=== PATIENT | female | born 1955 | race Caucasian/White ===

== ENCOUNTER → 2018-10-19 11:43 | Outpatient (CLI) | payer OTHER, SELFPAY ==
[2018-10-19 11:09] VITALS: BMI 27.2
[2018-10-19 13:12] LABS: AST(SGOT) 18 U/L (15-37); Alanine Aminotransfer ALT/SGPT 21 U/L (13-56); Albumin, Serum 3.7 g/dL (3.2-5.0); Alkaline Phosphatase 58 U/L (45-117); Anion Gap 4 (5-15); BUN 16 mg/dL (7-18); BUN/Creat Ratio 18.4 RATIO (10-20); Bilirubin, Direct 0.07 mg/dL (0.00-0.30); Calcium,Total 8.8 mg/dL (8.5-10.1); Chloride 97 mmol/L (98-107); Cholesterol 246 mg/dL (200); Creatinine, Serum 0.87 mg/dL (0.55-1.02); EST Glomerular Filtration Rate 70 mL/min (>60); Est Glom Filt Rate - Afr Amer 84 mL/min (>60); Globulin 3.2 g/dL (2.2-4.2); Glucose 95 mg/dL (74-106); High Density Lipoprotein 59 mg/dL; Protein, Total 6.9 g/dL (6.4-8.2); Sodium Level 129 mmol/L (136-145); Thyroid Stim Hormone (TSH) 1.74 uIU/mL (0.358-3.74); Triglycerides 103 mg/dL; Very Low Density Lipoprotein 21 mg/dL (5-40)
== END ==
LOC: LAB 11:47
PROVIDERS: Family Provider Family Medicine; PCP Family Medicine; Referring Provider Internal Medicine Cardiovascular Disease; Visit Provider Internal Medicine Cardiovascular Disease
DX: E78.00 Pure hypercholesterolemia, unspecified (principal); I42.8 Other cardiomyopathies
CPT/HCPCS: 36415; 80048; 80061; 80076; 83735; 84443

== ENCOUNTER → 2018-11-22 08:01 | Outpatient (CLI) | payer OTHER, SELFPAY ==
[2018-10-19 11:09] VITALS: BMI 27.2
--- NOTE | 2018-11-22 08:03 | ECHOD_ITS ---
Reason For Study: HYPERTENSION Procedure This was a 2D Doppler, Color Flow transthoracic echocardiogram. Exam performed in department. Left Ventricle Normal LV size. Mild concentric left ventricular hypertrophy. The estimated ejection fraction is 53 %. Stage 2 diastolic dysfunction. No regional wall motion abnormalities noted. Apical wall motion abnormality may reflect pacemaker activation. Right Ventricle Normal RV size. ICD or pacer leads identified within the right ventricle. Normal systolic function. Atria Normal left atrium. Normal right atrium. Mitral Valve Normal mitral valve. Tricuspid Valve Normal tricuspid valve. Mild (1+) tricuspid valve insufficiency. Aortic Valve Trisinus/trileaflet aortic valve. Pulmonic Valve Normal pulmonic valve. Great Vessels Normal aortic root. The pulmonary artery is normal size. Normal inferior vena cava. Pericardium/Pleural No pericardial effusion. MMode/2D Measurements & Calculations LVIDd: 4.5 cm IVSd: 1.3 cm Ao root diam: 3.4 cm LVIDs: 3.5 cm LVPWd: 1.3 cm RVDd: 2.8 cm FS: 23.5 % LAV(MOD-bp): 35.6 ml LA A4 area: 14.4 cm2 LA dimension(2D): 3.4 cm LAV(MOD-bp) Indexed: 21.1 ml/m2 LAV(MOD-sp2): 36.4 ml LAV(MOD-sp4): 33.2 ml Time Measurements MV dec time: 0.15 sec Doppler Measurements & Calculations MV E max dillon: 62.6 cm/sec Lat Peak E' Dillon: 3.4 cm/sec Med Peak E' Dillon: 3.2 cm/sec MV A max dillon: 85.3 cm/sec E/E' lat: 18.3 E/E' med: 19.8 MV E/A: 0.73 Ao V2 max: 134.6 cm/sec LV V1 max: 94.0 cm/sec PA V2 max: 81.7 cm/sec Ao max P.2 mmHg LV V1 max P.5 mmHg TR max dillon: 236.2 cm/sec TR max P.3 mmHg Interpretation Summary Normal LV size. Mild concentric left ventricular hypertrophy. The estimated ejection fraction is 53 %. Stage 2 diastolic dysfunction. Ordering Physician: Seamus Crews Referring Physician: Miguel Ángel Souza Performed By: Makenzie Torres, WENCS, RVT
== END ==
LOC: CVS 08:02
PROVIDERS: Family Provider Family Medicine; PCP Family Medicine; Referring Provider Internal Medicine Cardiovascular Disease; Visit Provider Internal Medicine Cardiovascular Disease
DX: I42.8 Other cardiomyopathies (principal); I10 Essential (primary) hypertension
CPT/HCPCS: 93306

== ENCOUNTER 2020-09-06 10:56 | Outpatient (RCR) | payer MEDICARE, BC, SELFPAY ==
[2020-02-02 10:59] VITALS: BMI 26.5
[2020-09-06] MEDS: COVID-19 VACC, MRNA(PFIZER)/PF 30 MCG/0.3 ML SYRINGE IM (18:59)
[2020-09-27] MEDS: COVID-19 VACC, MRNA(PFIZER)/PF 30 MCG/0.3 ML SYRINGE IM (18:28)
== END 2020-12-11 23:59 ==
LOC: IMMUN 10:56
PROVIDERS: PCP Family Medicine; Visit Provider Family Medicine
DX: Z23 Encounter for immunization (principal)
CPT/HCPCS: 0001A; 0002A; 91300

== ENCOUNTER → 2020-11-06 06:52 | Outpatient (CLI) | payer MEDICARE, BC, SELFPAY ==
[2020-10-05 09:58] VITALS: BMI 24.7
--- NOTE | 2020-11-06 17:23 | STRESSREP ---
Stress Test Report Pharmacologic cardial perfusion stress test. 65-year-old lady with a history of ischemic cardiomyopathy status post ICD implantation. Stress protocol: Resting EKG demonstrates sinus rhythm with a rate of 74 bpm and ventricular pacing. 0.4 mg of regadenoson was infused per usual protocol followed by rapid intravenous saline flush injection continuous EKG monitoring was performed. The maximum heart rate attained was 108 bpm which was 70% of maximal predicted heart rate the maximum workload was 1 metabolic equivalent. At rest there were no ST or T wave changes noted to suggest abnormal flow reserve and at peak infusion nonspecific ST changes were noted. The resting blood pressure 113/57 with a final blood pressure 116/65. Myocardial perfusion protocol. 11.2 mCi of technetium 99m sestamibi was injected at rest. 0.4 mg of regadenoson was infused per usual protocol. At peak infusion 33.3 mCi of technetium 99m sestamibi was injected stress images were obtained stress and rest images were reconstructed and compared in the short axis vertical long and horizontal long axis. Gated images were also obtained to Perfusion SPECT analysis: Review of the stress images demonstrate normal uptake of tracer noted in all areas of the myocardium. The resting images similarly demonstrated normal uptake of tracer noted in all areas of the myocardium. No areas of reversibility are noted to suggest ischemia and no previous infarct is noted. Gated SPECT analysis: The gated ejection fraction is 79%. Conclusion: Normal pharmacologic myocardial perfusion stress test. Preserved ejection fraction
== END ==
PROVIDERS: PCP Family Medicine; Visit Provider Internal Medicine Cardiovascular Disease
DX: I25.10 Atherosclerotic heart disease of native coronary artery without angina pectoris (principal)
CPT/HCPCS: 78452; 93017; A9500; A4216; J2785

== ENCOUNTER → 2021-04-30 10:12 | Outpatient (CLI) | payer MEDICARE, BC, SELFPAY ==
[2021-04-30 10:49] LABS: Absolute Lymphocyte Count 1.97 X10^3/uL (0.83-4.51); Absolute Neutrophil Count 2.3 X10^3/uL (2.0-7.7); Basophil# 0.03 X10^3/uL; Basophil% 0.6 % (0-1); Eosinophil# 0.13 X10^3/uL; Eosinophils% 2.7 % (0-5); Hematocrit 39.8 % (37-47); Hemoglobin 13.2 g/dL (12.0-15.0); Lymphocyte # 1.97 X10^3/ul (0.83-4.51); Lymphocyte % 41.3 % (19-41); Mean Corp Hgb Conc 33.2 g/dL (32-36); Mean Corpuscular Hgb 28.7 pg (27.0-32.0); Mean Corpuscular Volume 86.5 fL (81-99); Mean Platelet Vol. 10.1 fl (6.2-12.0); Monocyte# 0.36 X10^3/uL; Monocyte% 7.5 % (0-10); NRBC Flagged by Analyzer 0 % (0-5); Neutrophil # 2.27 X10^3/uL (2.7-7.7); Neutrophil % 47.7 % (47-70); Platelet Count 211 K/mm3 (150-450); RBC Distribution Width SD 44.7 fl (35.1-43.9); White Blood Count 4.8 K/mm3 (4.4-11.0)
[2021-04-30 11:15] LABS: ALB/GLOB Ratio 0.9 RATIO (0.9-2.4); AST(SGOT) 16 U/L (15-37); Alanine Aminotransfer ALT/SGPT 24 U/L (13-56); Albumin, Serum 3.4 g/dL (3.2-5.0); Alkaline Phosphatase 56 U/L (45-117); Anion Gap 6 (5-15); BUN 16 mg/dL (7-18); BUN/Creat Ratio 20.9 RATIO (10-20); Calcium,Total 9.2 mg/dL (8.5-10.1); Chloride 95 mmol/L (98-107); Cholesterol 292 mg/dL (200); Creatinine, Serum 0.77 mg/dL (0.55-1.02); EST Glomerular Filtration Rate 80 mL/min (>60); Est Glom Filt Rate - Afr Amer 97 mL/min (>60); Globulin 3.6 g/dL (2.2-4.2); Glucose 96 mg/dL (74-106); High Density Lipoprotein 65 mg/dL; Potassium 4.2 mmol/L (3.5-5.1); Sodium Level 131 mmol/L (136-145); Triglycerides 105 mg/dL; Very Low Density Lipoprotein 21 mg/dL (5-40)
== END ==
PROVIDERS: Referring Provider Physician Assistant Medical; Visit Provider Physician Assistant Medical
DX: I25.10 Atherosclerotic heart disease of native coronary artery without angina pectoris (principal); I42.8 Other cardiomyopathies; I10 Essential (primary) hypertension; E78.00 Pure hypercholesterolemia, unspecified; Z95.810 Presence of automatic (implantable) cardiac defibrillator
CPT/HCPCS: 36415; 80053; 80061; 85025

== ENCOUNTER → 2021-05-03 12:54 | Outpatient (CLI) | payer MEDICARE, BC, SELFPAY ==
--- NOTE | 2021-05-03 13:04 | CT_ITS ---
STUDY: CT LUMBAR SPINE WITH INTRATHECAL CONTRAST (LUMBAR CT MYELOGRAM) REASON FOR EXAM: Female, 65 years old. S/P LUMBAR SURGERY. Chronic low back pain. RADIATION DOSAGE (If Supplied By Facility): CTDIvol = ( 13.87 ) mGy, DLP = ( 420.41 ) mGycm TECHNIQUE: Transaxial images were obtained from the L1 vertebra through the S1 vertebral level, following intrathecal administration of 15 ml of ISOVUE-M 200 contrast material, performed by Dr. Leora BROWN. Please refer to this physicians technical notes for procedural details. Coronal and sagittal reconstructions were obtained. Individualized dose optimization techniques were used for this CT. COMPARISON: None. FINDINGS: Normal lumbar lordosis. Dextroscoliosis. Normal vertebrae of the lumbar spine. There is dependent layering of contrast material in the distal thecal sac. The conus medullaris terminates in a normal position at the T12-L1 level. There is no demonstrated cauda equina nerve root abnormality or intraspinal mass. L1-2: Moderate degree of disc space narrowing. Facet joint osteoarthritis and hypertrophy. Mild degree of bilateral neural foraminal and central canal stenosis. L2-3: Mild degree of disc space narrowing. Facet joint osteoarthritis. Mild degree of central canal stenosis and bilateral neural foraminal stenosis. L3-4: Marked degree of disc space narrowing. Spondylosis. There is evidence of a left paracentral disc herniation causing deformity of the thecal sac on the left side with compression of the exiting nerve root. L4-5: There is evidence of severe stenosis at the L4-L5 level due to the right lateral displacement of the L4 vertebrae on the L5 vertebrae with severe spinal stenosis and neural foraminal stenosis worse on the left side. There is also evidence of a large right lateral disc herniation causing deformity of thecal sac on the right side and compression of the exiting nerve root. L5-S1: Moderate degree of disc space narrowing. There is evidence of a large follow-up cyst in the left sacrum. Atherosclerotic calcification of the abdominal aorta. CT/Spine Lumbar WITH Contrast IMPRESSION: Multiple abnormalities as described above. Electronically Signed: Jay Corey MD at 15:20 EDT , Service support ,
--- NOTE | 2021-05-03 13:04 | RAD_ITS ---
PROCEDURE: LUMBAR MYELOGRAM DATE OF EXAMINATION: 05/03/2021. INDICATION: Female, 65 years old. Low back pain. Prior lower back surgery. PHYSICIAN: Jay Corey M.D. CONSENT: The patient''s history and physical findings were reviewed. The lumbar myelogram procedure was discussed with the patient prior to signing a consent. SEDATION: Local anesthesia with 3 mL of 1% lidocaine was used. FLUOROSCOPY TIME (if supplied): (1:19) minutes/seconds. 4 images were obtained. Injection Information: 15 cc of ISOVUE-M 200 Number of images obtained: 4 TECHNIQUE: Digital fluoroscopy was used to identify a safe approach for the lumbar myelogram. The back was prepped and draped in usual fashion. Local anesthesia was utilized. Under fluoroscopic guidance a 22-gauge spinal needle was inserted into the spinal canal at the L4-5 level. Clear spinal fluid was seen. 15 mL of Isovue 200 M was injected into the spinal canal. There is evidence of a dextroscoliosis. Multilevel disc space narrowing and disc degeneration. Grade 1 anterolisthesis of L4 on L5. There is evidence of complete block at the L4-L5 level. Multilevel anterior extradural defects. RAD/Lumbar Myelogram IMPRESSION: Complete block at the L4-L5 level. A CT scan will follow. The patient tolerated the procedure well. Electronically Signed: Jay Corey MD at 14:17 EDT , Service support ,
[2021-05-03 13:19] VITALS: BP 151/84; PULSE 95; RESP 18; TEMP 36.8; O2SAT 99; BMI 25.6
[2021-05-03 15:05] VITALS: BP 154/62; PULSE 95; RESP 14; O2SAT 98
== END | disposition home or self-care (01) ==
DX: M54.16 Radiculopathy, lumbar region (principal); Z98.890 Other specified postprocedural states; M51.36 Other intervertebral disc degeneration, lumbar region; M41.9 Scoliosis, unspecified
CPT/HCPCS: 62304; 72132; Q9965

== ENCOUNTER 2021-08-18 07:33 | Emergency (ER) | payer MEDICARE, BC, SELFPAY ==
[2021-08-18 07:35] VITALS: BP 168/82; PULSE 108; RESP 16; TEMP 36.2; O2SAT 100; BMI 26.4
--- NOTE | 2021-08-18 07:46 | RAD_ITS ---
STUDY: X-RAY CHEST REASON FOR EXAM: Female, 66 years old. chest pain TECHNIQUE: Single AP portable view of the chest. COMPARISON: 03/30/2014 FINDINGS: Left subclavian quadrant lead AICD which is unchanged. The lungs are clear and expanded. There is no demonstrated pleural abnormality. Normal size heart. Normal mediastinum and ponce. Normal visualized pulmonary arteries. Normal visualized aortic arch and descending thoracic aorta. Normal visualized thoracic spine. Normal visualized ribs, clavicles, and shoulders. There is no demonstrated abnormality of the visualized soft tissue structures of the upper abdomen. RAD/Chest 1 View (Portable) IMPRESSION: No active disease. Electronically Signed: Mir Spencer MD at 8:50 EST ,
--- NOTE | 2021-08-18 07:47 | EDS_ITS ---
HPI History of Present Illness Chief Complaint: Complaint Detail of Chief Complaint: Dysuria, hematuria, and chest pain Informant: patient Narrative Narrative: Patient presents to the emergency department with main complaint of dysuria and hematuria. Patient states that she had some dysuria that started yesterday and started drinking cranberry juice. This morning she try to urinate and passed blood and some small clots and only small amount of urine. She denies any pain in her back out of the ordinary although she did have surgery on her back and had a lumbar fusion 7 weeks ago. Patient also relates history of chest pain 2 days ago that was pressure across her chest and radiating down both arms and lasted about 20 minutes and she became somewhat diaphoretic with that. She is not had any more chest discomfort since that time. Patient came on at rest at the time. She has no history of cardiac stents or open heart surgery. She does have history of CHF and has a ICD. Patient denies fevers or other recent illness. [facility] Medical History (Updated 08/18/21 @ 11:[address] Jonny Mcanlly, ) Atherosclerotic heart disease of [place] coronary artery without angina pectoris Essential (primary) hypertension Hyperlipidemia LBBB (left bundle branch block) Neurocardiogenic syncope Non-ischemic cardiomyopathy Nonsustained ventricular tachycardia Presence of biventricular automatic implantable cardioverter defibrillator (01/20/18) Home Medications nitroglycerin 0.4 mg SUBLINGUAL Q5M PRN 04/04/14 [History Last Taken Unknown] loratadine 10 mg tablet 10 mg PO QDAY PRN 10/12/17 [History Last Taken Unknown] amlodipine 5 mg tablet 5 mg PO DAILY #90 tab 03/04/21 [Rx Last Taken Unknown] ezetimibe 10 mg tablet 10 mg PO DAILY #30 tab 05/02/21 [Rx Last Taken Unknown] lisinopril 20 mg tablet 20 mg PO BID #180 tab 06/03/21 [Rx Last Taken Unknown] carvedilol 25 mg tablet 25 mg PO BID #180 tab 07/01/21 [Rx Last Taken Unknown] cephalexin 500 mg PO Q6 #40 capsule 08/18/21 [Rx Last Taken Unknown] phenazopyridine [Pyridium] 200 mg PO TID #10 tab 08/18/21 [Rx Last Taken Unknown] Allergy/AdvReac Type Severity Reaction Status Date / Time rosuvastatin calcium Allergy Unknown Verified 08/18/21 07:38 [From Crestor] sumatriptan [From Imitrex] Allergy Unknown Verified 08/18/21 07:38 sumatriptan succinate Allergy Unknown Verified 08/18/21 07:38 [From Imitrex] Family History Brother Hypertension Brother Hypertension Brother CAD (coronary artery disease) Hypertension CVA (cerebral vascular accident) Sister Hypertension HLD (hyperlipidemia) Sister Hypertension Sister Hypertension Brother Cancer Lung cancer Surgical History History of back surgery History of carpal tunnel surgery History of electrophysiologic study (03/2007) Presence of biventricular implantable cardioverter-defibrillator (ICD) (05/24/08) Social History (Updated 10/05/20 @ 10:[address] Seamus Crews MD) Smoking Status: Current some day smoker tobacco type: cigarettes alcohol intake: never substance use type: does not use diet: low salt caffeine: Yes (5-7 servings per day) Type: coffee what type of physical activity do you participate in: none seatbelt use: always do you feel safe at home: Yes ROS ROS ED Constitutional Constitutional ED: Reports systems reviewed and no addt'l complaints, except as documented; Denies body ache(s), change in weight or chills Eyes Eyes: Denies acute decrease in peripheral vision, change in vision, double vision or loss of vision ENT ENT ED: Reports none; Denies ear pain, lip swelling, loss taste/smell, neck pain, otalgia or sore throat Cardiovascular Cardiovascular: Reports none and chest pain; Denies abdominal pain, chest pain with activity, leg edema, lightheadedness, palpitations, rapid heart rate or syncope Respiratory/Chest Respiratory/Chest: Reports none; Denies change in mental status, dry cough, dyspnea, hemoptysis, shortness of breath at rest or shortness of breath with exertion Gastrointestinal Gastrointestinal: Reports none; Denies abdominal pain, change in stool character, diarrhea, hematemesis, hematochezia, melena, rectal bleeding or vomiting Genitourinary Genitourinary ED: Reports none, dysuria, hematuria and urinary frequency; Denies abdominal discomfort, anuria, genital pain or polyuria Musculoskeletal Musculoskeletal: Reports none; Denies arthralgias, back pain, difficulty walking, extremity pain, muscle weakness or myalgias Integumentary Reports none; Denies abscess or rash Neurologic Neurologic: Reports none; Denies abnormal gait, confusion, focal weakness, frequent falls, headache(s), loss of vision, numbness, paresthesias, radicular pain, vertigo or weakness Psychiatric Psychiatric: Reports systems reviewed and no addt'l complaints, except as documented and none; Denies behavioral changes, confusion, difficulty concentrating, hallucinations, suicidal ideation, tactile hallucinations or v isual hallucinations Endocrine Endocrinology: Denies none, cold intolerance, excessive sweating, fatigue or heat intolerance Hematologic/Lymphatic Hematologic/Lymphatic: Reports none; Denies anemia, easy bleeding or easy bruising Allergic/Immunologic Allergic/Immunologic ED: Denies as per HPI, none, lip swelling, mouth swelling, throat swelling, tongue swelling or hives EXAM Physical Exam Const Vital Signs: 08/18/21 07:35 08/18/21 09:46 Temperature 97.2 F L Temperature Source Temporal Pulse Rate 108 H 87 Respiratory Rate 16 18 Blood Pressure 168/82 H 172/51 H Blood Pressure Mean 110 91 Pulse Ox 100 99 Oxygen Delivery Method Room Air Room Air Positive well nourished and well developed General Appearance ED: well developed and NAD HEENT Reports TM's clear and moist mucous membranes normocephalic and atraumatic; Negative for trauma or tenderness Tympanic Membrane ED: Yes TM's clear Eyes PERRL and EOMs intact bilaterally General Eye ED: Negative for pale conjunctiva or scleral icterus Neck no lymphadenopathy, supple and no JVD General: Negative for tenderness Chest Wall inspection of chest normal and palpation of chest normal Chest: Negative for tenderness Resp normal respiratory effort and clear to auscultation bilaterally Effort and Inspection: Negative for respiratory distress or pain with movement Auscultation: Negative for rhonchi, wheezes or diminished lung sounds Cardio regular rate, regular rhythm, S1 normal heart sound, S2 normal heart sound and no murmurs Peripheral Pulses: pulses 2+ throughout GI normal to inspection, nondistended, normoactive bowel sounds, soft to palpation, non-tender, non-distended and no masses Back/Spine no CVA tenderness and no thoracic nor lumbar tenderness Back/Spine Narrative: Patient has well-healed incision over the lumbar spine without any evidence of redness or drainage. No CVA tenderness on exam. Extremity normal to inspection General Extremety ED: Negative for edema General Extremity: Negative for edema Neuro oriented x3, CN's II-XII intact bilaterally, no sensory deficits noted and gait normal Sensorium / Orientation: awake, alert, oriented to person, oriented to place and oriented to time Motor Exam: strength 5/5 throughout and strength abnormal Psych mental status grossly normal Skin no rashes or lesions noted and no wounds MDM MDM MDM Narrative Medical decision making narrative: IV line established on arrival. Patient had an EKG that showed atrially sensed and by ventricularly paced rhythm. Patient lab work-up was unremarkable with a normal troponin. Urine was positive for UTI. At this point she was given Rocephin 1 g IV. I suspect patient has a hemorrhagic cystitis. She was also given Azo. She will be given a prescription for Keflex as well as Azo and a urine culture will be sent. Etiology of chest discomfort unclear from 2 days ago however I feel she can follow-up with her primary care physician as an outpatient. Patient vies to return if worsening chest pain, increasing shortness of breath, or condition should worsen anyway. Lab Data Attestation: I reviewed the patient's lab results. Labs: Laboratory Results - last 24 hr 08/18/21 08/18/21 08/18/21 08:17 08:25 08:25 WBC 7.5 RBC 4.84 Hgb 13.5 Hct 42.4 MCV 87.6 MCH 27.9 MCHC 31.8 L RDW Std Deviation 44.9 H RDW Coeff of Michael 14.1 Plt Count 192 MPV 10.5 Immature Gran % (Auto) 0.300 Neut % (Auto) 72.7 H Lymph % (Auto) 19.6 Sunflower % (Auto) 6.1 Eos % (Auto) 0.9 Baso % (Auto) 0.4 Absolute Neuts (auto) 5.5 Absolute Lymphs (auto) 1.48 Nucleated RBC % 0 Sodium 135 L Potassium 3.6 Chloride 101 Carbon Dioxide 29.0 Anion Gap 5 BUN 15 Creatinine 0.67 Estim Creat Clear Calc 41.19 Est GFR (MDRD) Af Amer 114 Est GFR (MDRD) Non-Af 94 BUN/Creatinine Ratio 22.5 H Glucose 118 H Calcium 9.0 Troponin I High Sens 8 Urine Color Brown Urine Clarity Turbid Urine pH 6.5 Ur Specific [employer] 1.020 Urine Protein 100 H Urine Glucose (UA) Normal Urine Ketones 15 H Urine Occult Blood 250 H Urine Nitrite Positive H Urine Bilirubin 1 H Urine Urobilinogen 1 H Ur Leukocyte Esterase 500 H Urine RBC > 100 SEEN Urine WBC >100 SEEN Ur Squamous Epith Cells 0 SEEN Urine Bacteria 2+ Urine Mucus 0 SEEN Radiography Diagnostic Testing: Clinical Impression(s) from Imaging Studies Chest X-Ray 08/18/21 07:46 IMPRESSION: No active disease. Electronically Signed: Mir Spencer MD at 8:50 EST , EKG Initial EKG: Attestation: I personally reviewed and interpreted this EKG as follows: Comments: Paced rhythm with a rate of 101 bpm with occasional PVCs. Discharge Plan Triage Chief Complaint: Complaint ED Provider: Jonny Mcnally Dx/Rx/DC Orders Clinical Impression: Acute UTI, Chest pain Instructions: ED Chest Pain, Uncertain Cause, ED CYSTITIS Female Adult Prescriptions: New cephalexin [cephalexin] 500 MG capsule 500 mg PO Q6 Qty: 40 RF: 0 phenazopyridine [Pyridium] 200 mg tablet 200 mg PO TID Qty: 10 RF: 0 No Action loratadine [Claritin] 10 mg tablet 10 mg PO QDAY PRN (Reason: allergies) RF: 0 nitroglycerin 0.4 MG tablet 0.4 mg SUBLINGUAL Q5M PRN (Reason: Chest Pain) RF: 0 amlodipine 5 mg tablet 5 mg PO DAILY Qty: 90 RF: 3 ezetimibe [Zetia] 10 mg tablet 10 mg PO DAILY Qty: 30 RF: 6 lisinopril 20 mg tablet 20 mg PO BID Qty: 180 RF: 3 carvedilol 25 mg tablet 25 mg PO BID Qty: 180 RF: 3 Primary Care Provider: Care Physician,No Primary Referrals: Care Physician,No Primary [Primary Care Provider] -
--- NOTE | 2021-08-18 07:50 | EKG12_ITS ---
Test Reason : CHEST PAIN Blood Pressure : / mmHG Vent. Rate : 101 BPM Atrial Rate : 101 BPM P-R Int : 132 ms QRS Dur : 124 ms QT Int : 376 ms P-R-T Axes : 057 259 038 degrees QTc Int : 487 ms Atrial-sensed ventricular-paced rhythm Biventricular pacemaker detected Abnormal ECG Confirmed by WALDEMAR BROWN, JENNIFER ([id number]), editor trade journal LIUDMILA FOFANA ([id number]) on 08/20/2021 1:04:27 PM Referred By: RU Confirmed By:JENNIFER MEDEIROS MD
[2021-08-18 08:25] LABS: Mucous, Urine 0 SEEN /hpf (<or=2+); Squamous Epithelial Cells - UA 0 SEEN /hpf (5-10)
[2021-08-18] MEDS: 0.9% Normal Saline 1,000 ML 150 ML IV (08:32)
[2021-08-18 08:36] LABS: Color, Urine Brown (Yellow); Glucose, Dipstick Normal (Normal); Ketone-Dipstick 15 mg/dl (Negative); Leukocyte Esterase-Dipstick 500 /ul (Negative); Nitrite-Dipstick Positive (Negative); Occult Blood-Urine 250 /ul (Negative); Protein-Dipstick 100 mg/dl (Negative); Urine Clarity Turbid (Clear); Urine Urobilinogen 1 mg/dl (Normal); Urine pH 6.5 (5.0 - 8.0)
[2021-08-18 08:43] LABS: Urine Bilirubin Dipstick 1 mg/dL (Negative)
[2021-08-18 08:44] LABS: Bacteria 2+ /hpf (None Seen); Red Blood Cells-Urine > 100 SEEN /hpf (0-5); White Blood Cells >100 SEEN /hpf (0-5)
[2021-08-18 08:47] LABS: Absolute Lymphocyte Count 1.48 X10^3/uL (0.83-4.51); Absolute Neutrophil Count 5.5 X10^3/uL (2.0-7.7); Basophil# 0.03 X10^3/uL; Basophil% 0.4 % (0-1); Eosinophil# 0.07 X10^3/uL; Eosinophils% 0.9 % (0-5); Hematocrit 42.4 % (37-47); Hemoglobin 13.5 g/dL (12.0-15.0); Lymphocyte # 1.48 X10^3/ul (0.83-4.51); Lymphocyte % 19.6 % (19-41); Mean Corp Hgb Conc 31.8 g/dL (32-36); Mean Corpuscular Hgb 27.9 pg (27.0-32.0); Mean Corpuscular Volume 87.6 fL (81-99); Mean Platelet Vol. 10.5 fl (6.2-12.0); Monocyte# 0.46 X10^3/uL; Monocyte% 6.1 % (0-10); NRBC Flagged by Analyzer 0 % (0-5); Neutrophil # 5.48 X10^3/uL (2.7-7.7); Neutrophil % 72.7 % (47-70); Platelet Count 192 K/mm3 (150-450); RBC Distribution Width CV 14.1 % (11.6-14.6); RBC Distribution Width SD 44.9 fl (35.1-43.9); Red Blood Count 4.84 M/mm3 (4.2-5.4); White Blood Count 7.5 K/mm3 (4.4-11.0)
[2021-08-18 09:03] LABS: Anion Gap 5 (5-15); BUN 15 mg/dL (7-18); BUN/Creat Ratio 22.5 RATIO (10-20); Chloride 101 mmol/L (98-107); Creatinine, Serum 0.67 mg/dL (0.55-1.02); EST Glomerular Filtration Rate 94 mL/min (>60); Est Glom Filt Rate - Afr Amer 114 mL/min (>60); Estimated Creatinine Clearance 41.19 ml/min; Glucose 118 mg/dL (74-106); Potassium 3.6 mmol/L (3.5-5.1); Sodium Level 135 mmol/L (136-145); Troponin-I HS 8 pg/mL (3.0-54.0)
[2021-08-18] MEDS: Ceftriaxone 1 GM/50 ML BAG IV (09:41)
[2021-08-18] MEDS: Phenazopyridine 95 MG Tablet 190 MG PO (09:43)
[2021-08-18 09:46] VITALS: BP 172/51; PULSE 87; RESP 18; O2SAT 99
[2021-08-18 11:52] VITALS: BP 136/78; PULSE 78; RESP 16; O2SAT 98
== END 2021-08-18 11:54 | disposition home or self-care (01) ==
PROVIDERS: Emergency Provider Emergency Medicine; Visit Provider Emergency Medicine
DX: N39.0 Urinary tract infection, site not specified (principal); I11.0 Hypertensive heart disease with heart failure; I42.8 Other cardiomyopathies; I50.9 Heart failure, unspecified; R07.9 Chest pain, unspecified; E78.5 Hyperlipidemia, unspecified; R31.9 Hematuria, unspecified; I25.10 Atherosclerotic heart disease of native coronary artery without angina pectoris; Z95.810 Presence of automatic (implantable) cardiac defibrillator
CPT/HCPCS: 71045; 80048; 81001; 84484; 85025; 87086; 87088; 93005; 96361; 96365; 99284; J7030; A4216

== ENCOUNTER 2021-08-25 01:12 | Emergency (ER) | payer MEDICARE, BC, SELFPAY ==
[2021-08-25 01:13] VITALS: BP 85/62; BP 87/25; PULSE 76; RESP 17; TEMP 36.4; O2SAT 99; BMI 27.6
[2021-08-25] MEDS: 0.9% Normal Saline 1,000 ML 1000 ML IV (01:20)
[2021-08-25 01:36] LABS: Absolute Lymphocyte Count 1.05 X10^3/uL (0.83-4.51); Absolute Neutrophil Count 7.3 X10^3/uL (2.0-7.7); Basophil# 0.02 X10^3/uL; Basophil% 0.2 % (0-1); Eosinophil# 0.11 X10^3/uL; Eosinophils% 1.2 % (0-5); Hematocrit 44.5 % (37-47); Hemoglobin 14.6 g/dL (12.0-15.0); Lymphocyte # 1.05 X10^3/ul (0.83-4.51); Lymphocyte % 11.8 % (19-41); Mean Corp Hgb Conc 32.8 g/dL (32-36); Mean Corpuscular Hgb 28.2 pg (27.0-32.0); Mean Corpuscular Volume 86.1 fL (81-99); Mean Platelet Vol. 10.4 fl (6.2-12.0); Monocyte# 0.42 X10^3/uL; Monocyte% 4.7 % (0-10); NRBC Flagged by Analyzer 0 % (0-5); Neutrophil # 7.29 X10^3/uL (2.7-7.7); Neutrophil % 81.7 % (47-70); Platelet Count 189 K/mm3 (150-450); RBC Distribution Width CV 13.6 % (11.6-14.6); RBC Distribution Width SD 43.1 fl (35.1-43.9); Red Blood Count 5.17 M/mm3 (4.2-5.4); White Blood Count 8.9 K/mm3 (4.4-11.0)
--- NOTE | 2021-08-25 01:40 | RAD_ITS ---
STUDY: X-RAY CHEST REASON FOR EXAM: Female, 66 years old. Chest pain and shortness of breath TECHNIQUE: Single AP portable view of the chest. COMPARISON: None. FINDINGS: Pacemaker is seen on the left side. The lungs are clear and expanded. There is no demonstrated pleural abnormality. Normal size heart. Normal mediastinum and ponce. Normal visualized pulmonary arteries. Normal visualized aortic arch and descending thoracic aorta. Normal visualized thoracic spine. There is degenerative osteoarthritis of the bilateral shoulders. There is no demonstrated abnormality of the visualized soft tissue structures of the upper abdomen. RAD/Chest 1 View (Portable) IMPRESSION: Normal x-ray examination of the chest. Electronically Signed: Dinora Casillas MD at 2:10 EST ,
[2021-08-25 01:52] LABS: D-Dimer Quantitative (DVT/PE) 2.12 FEU/ug/m (0.27-0.49)
[2021-08-25 01:56] LABS: Anion Gap 9 (5-15); BUN 17 mg/dL (7-18); BUN/Creat Ratio 17.7 RATIO (10-20); Calcium,Total 8.8 mg/dL (8.5-10.1); Chloride 100 mmol/L (98-107); Creatinine, Serum 0.96 mg/dL (0.55-1.02); EST Glomerular Filtration Rate 62 mL/min (>60); Est Glom Filt Rate - Afr Amer 74 mL/min (>60); Estimated Creatinine Clearance 42.91 ml/min; Glucose 129 mg/dL (74-106); Potassium 3.3 mmol/L (3.5-5.1); Sodium Level 136 mmol/L (136-145); Troponin-I HS 10 pg/mL (3.0-54.0)
[2021-08-25 02:05] LABS: Mucous, Urine 0 SEEN /hpf (<or=2+); Squamous Epithelial Cells - UA 0 SEEN /hpf (5-10)
[2021-08-25 02:09] LABS: Color, Urine Yellow (Yellow); Glucose, Dipstick Normal (Normal); Ketone-Dipstick Negative (Negative); Leukocyte Esterase-Dipstick 25 /ul (Negative); Nitrite-Dipstick Negative (Negative); Occult Blood-Urine 50 /ul (Negative); Protein-Dipstick 30 mg/dl (Negative); Specific Gravity, Urine 1.015 (1.002-1.030); Urine Bilirubin Dipstick Negative (Negative); Urine Clarity Clear (Clear); Urine Urobilinogen Normal (Normal); Urine pH 6.5 (5.0 - 8.0)
--- NOTE | 2021-08-25 02:13 | EDS_ITS ---
HPI History of Present Illness Chief Complaint: Chest Pain Detail of Chief Complaint: Syncopal episode x3 and chest pain Informant: patient and spouse/S.O. Onset/Context/Timing Onset: Today, Hours and Weeks (Patient reports chest pain that started over a week ago and has been intermittent.) Activity at onset: sudden Timing: Intermittent (15 minutes to 1 hour.) Quality: Positive for Aching Location: Left Parasternal Current Severity: Mild Maximum Severity: Moderate Worsened By: Movement of Arm and Breathing Relieved By: Nothing Associated Symptoms: Positive for Nausea and Dyspnea; Negative for Vomiting, Diaphoresis, Cough, Fever, Lightheadedness, Acid Reflux and Palpitations Narrative Narrative: Patient is a 66-year-old woman who presents with sickle episode x3 and chest pain. She also reports shortness of breath. She is status post laminectomy [address] Goldman at the [facility]. 2 of the single episode occurred while she was on the commode. The other was preceded by nausea and vomiting. These are all consistent with vasovagal episodes. She was seen last Thursday for chest pain and enzymes were normal. She has had chest pain for the past week varied in intensity. This episode started rest. She denies hematemesis, melena medic easier. She has vomited several times. She had diarrhea. She is presently on cephalexin for UTI. Will need to assess for C. difficile. Prior Similar Symptoms: Yes Recent Illness/Hospitalization: Yes CVD Risk Factors: Positive for Hypertension and Hypercholesterolemia PE Risk Factors: Positive for Recent Travel/Surgery and Recent Immobilization; Negative for Prior DVT or PE, Cancer and OCP + Smoking + >/=35 TAD Risk Factors: Positive for Hypertension; Negative for Marfan's Syndrome and Family History [facility] [place] Medical History (Updated 08/25/21 @ 03:[address] Alan Polo MD) Atherosclerotic heart disease of [place] coronary artery without angina pectoris Essential (primary) hypertension Hyperlipidemia LBBB (left bundle branch block) Neurocardiogenic syncope Non-ischemic cardiomyopathy Nonsustained ventricular tachycardia Presence of biventricular automatic implantable cardioverter defibrillator (01/20/18) Home Medications nitroglycerin 0.4 mg SUBLINGUAL Q5M PRN 04/04/14 [History Last Taken Unknown] loratadine 10 mg tablet 10 mg PO QDAY PRN 10/12/17 [History Last Taken Unknown] amlodipine 5 mg tablet 5 mg PO DAILY #90 tab 03/04/21 [Rx Last Taken Unknown] ezetimibe 10 mg tablet 10 mg PO DAILY #30 tab 05/02/21 [Rx Last Taken Unknown] lisinopril 20 mg tablet 20 mg PO BID #180 tab 06/03/21 [Rx Last Taken Unknown] carvedilol 25 mg tablet 25 mg PO BID #180 tab 07/01/21 [Rx Last Taken Unknown] cephalexin 500 mg PO Q6 #40 capsule 08/18/21 [Rx Last Taken Unknown] phenazopyridine [Pyridium] 200 mg PO TID #10 tab 08/18/21 [Rx Last Taken Unknown] Allergy/AdvReac Type Severity Reaction Status Date / Time rosuvastatin calcium Allergy Unknown Verified 08/18/21 07:38 [From Crestor] sumatriptan [From Imitrex] Allergy Unknown Verified 08/18/21 07:38 sumatriptan succinate Allergy Unknown Verified 08/18/21 07:38 [From Imitrex] Family History Brother Hypertension Brother Hypertension Brother CAD (coronary artery disease) Hypertension CVA (cerebral vascular accident) Sister Hypertension HLD (hyperlipidemia) Sister Hypertension Sister Hypertension Brother Cancer Lung cancer Surgical History History of back surgery History of carpal tunnel surgery History of electrophysiologic study (03/2007) Presence of biventricular implantable cardioverter-defibrillator (ICD) (05/24/08) Social History (Updated 08/25/21 @ 02:[address] Alan Polo MD) household members: spouse Smoking Status: Current every day smoker tobacco type: cigarettes alcohol intake: never substance use type: does not use diet: low salt caffeine: Yes (5-7 servings per day) Type: coffee what type of physical activity do you participate in: none seatbelt use: always do you feel safe at home: Yes ROS ROS ED Constitutional Constitutional ED: Reports chills; Denies fever(s), subjective, sweats or weight loss Eyes Eyes: Reports none ENT ENT ED: Denies ear pain, rhinorrhea or sore throat Cardiovascular Cardiovascular: Reports as per HPI and chest pain; Denies orthopnea, palpitations, paroxysmal nocturnal dyspnea or racing heartbeat Respiratory/Chest Respiratory/Chest: Reports cough and dyspnea; Denies dyspnea on exertion, orthopnea, paroxysmal nocturnal dyspnea or sputum Gastrointestinal Gastrointestinal: Reports diarrhea, nausea and vomiting; Denies abdominal pain, constipation or melena Genitourinary Genitourinary ED: Denies dysuria, hematuria or urinary frequency Musculoskeletal Musculoskeletal: Reports back pain; Denies arthralgias, myalgias or neck pain Integumentary Denies abscess, Abrasions or rash Neurologic Neurologic: Reports weakness; Denies headache(s) or paresthesias Psychiatric Psychiatric: Denies anxiety or depression Endocrine Endocrinology: Denies polydipsia, polyphagia or polyuria Hematologic/Lymphatic Hematologic/Lymphatic: Denies easy bleeding or easy bruising Allergic/Immunologic Allergic/Immunologic ED: Denies mouth swelling or urticaria EXAM Physical Exam Const Vital Signs: 08/25/21 01:13 08/25/21 02:46 08/25/21 03:52 Temperature 97.6 F L Temperature Source Oral Pulse Rate 76 82 84 Respiratory Rate 17 16 17 Blood Pressure 85/62 L 104/56 L 110/66 Blood Pressure Mean 69 72 80 Pulse Ox 99 100 92 Oxygen Delivery Method Room Air Room Air Room Air Positive well nourished and well developed General Appearance ED: well developed and NAD; Negative for pallor HEENT Reports TM's clear and dry mucous membranes normocephalic and atraumatic Tympanic Membrane ED: Yes TM's clear Mouth ED: Yes dry mucous membranes Mouth: dry mucous membranes Eyes PERRL and EOMs intact bilaterally General Eye ED: Negative for pale conjunctiva or scleral icterus Neck no lymphadenopathy, supple and no JVD Chest Wall inspection of chest normal Resp normal respiratory effort and clear to auscultation bilaterally Effort and Inspection: respiratory distress Cardio regular rate, regular rhythm, S1 normal heart sound and S2 normal heart sound; Negative for no murmurs GI normal to inspection, nondistended, normoactive bowel sounds, soft to palpation, non-tender, non-distended and no masses Back/Spine no CVA tenderness and no thoracic nor lumbar tenderness Back/Spine Narrative: Well-healed midline scar lumbar sacral region. Cervical Spine: Negative for cervical spine tenderness Extremity normal to inspection Extremity Narrative: There is no asymmetry, swelling, discoloration, leg vein distention, palpable cords or tenderness along the distribution of the deep venous system. General Extremety ED: Negative for edema, pulses abnormal or tenderness General Extremity: Negative for edema or pulses abnormal Neuro oriented x3, CN's II-XII intact bilaterally and no sensory deficits noted Neuro Narrative: Gait not tested. She is hypotensive. Sensorium / Orientation: awake and alert Motor Exam: strength 5/5 throughout Psych mental status grossly normal Skin no rashes or lesions noted and no wounds General Skin Exam: Negative for jaundice or pallor Heart Score History: Slightly/Non-Suspicious ECG: Normal Age: >/= 65 years Risk Factors: >/= 3 Risk Factors or History of CAD Score: 4 MDM MDM MDM Narrative Medical decision making narrative: Patient presents with 3 symptoms of this. Consistent with vasovagal. Patient complaint of shortness of breath pleuritic component of chest pain in addition to the dull aching pain with recent back surgery, laminectomy, multilevel will obtain D-dimer to assess for concern for pulmonary embolus. Her hypotension may be due to volume depletion because she reports vomiting diarrhea. Since she is present on antibiotics with diarrhea we will send stool for C. difficile. CBC was obtained to assess white count and H&H. Basic metabolic panel to assess renal function and anion gap. Patient received 1 L of normal saline wide open. Since the D-dimer is markedly elevated cannot be corrected for age will obtain CTA to assess for blood clot. Patient's blood pressure normalized with IV fluids. Suspect her hypotension is due to volume depletion from vomiting diarrhea. Also suspect her lactic acidosis was due to hypotension. The CTA was reconstructed in the area of concern for dissection is calcification due to atherosclerotic disease. Stool specimen was not sent to the capsules patient did not have any diarrhea during her stay in the emergency department Lab Data Attestation: I reviewed the patient's lab results. Lab results narrative: Urine is unremarkable. CBC is unremarkable. D-dimer is elevated. Both troponins and delta are normal. Labs: Laboratory Results - last 24 hr 08/25/21 08/25/21 08/25/21 01:30 01:30 01:30 WBC 8.9 RBC 5.17 Hgb 14.6 Hct 44.5 MCV 86.1 MCH 28.2 MCHC 32.8 RDW Std Deviation 43.1 RDW Coeff of Michael 13.6 Plt Count 189 MPV 10.4 Immature Gran % (Auto) 0.400 Neut % (Auto) 81.7 H Lymph % (Auto) 11.8 L [place] % (Auto) 4.7 Eos % (Auto) 1.2 Baso % (Auto) 0.2 Absolute Neuts (auto) 7.3 Absolute Lymphs (auto) 1.05 Nucleated RBC % 0 D-Dimer Quant (PE/DVT) 2.12 H* Sodium 136 Potassium 3.3 L Chloride 100 Carbon Dioxide 27.0 Anion Gap 9 BUN 17 Creatinine 0.96 Estim Creat Clear Calc 42.91 Est GFR (MDRD) Af Amer 74 Est GFR (MDRD) Non-Af 62 BUN/Creatinine Ratio 17.7 Glucose 129 H Lactic Acid Calcium 8.8 Troponin I High Sens 10 Urine Color Urine Clarity Urine pH Ur Specific [place] Urine Protein Urine Glucose (UA) Urine Ketones Urine Occult Blood Urine Nitrite Urine Bilirubin Urine Urobilinogen Ur Leukocyte Esterase Urine RBC Urine WBC Ur Squamous Epith Cells Urine Bacteria Hyaline Casts Urine Mucus 08/25/21 08/25/21 01:42 02:02 WBC RBC Hgb Hct MCV MCH MCHC RDW Std Deviation RDW Coeff of Michael Plt Count MPV Immature Gran % (Auto) Neut % (Auto) Lymph % (Auto) [place] % (Auto) Eos % (Auto) Baso % (Auto) Absolute Neuts (auto) Absolute Lymphs (auto) Nucleated RBC % D-Dimer Quant (PE/DVT) Sodium Potassium Chloride Carbon Dioxide Anion Gap BUN Creatinine Estim Creat Clear Calc Est GFR (MDRD) Af Amer Est GFR (MDRD) Non-Af BUN/Creatinine Ratio Glucose Lactic Acid 2.1 H* Calcium Troponin I High Sens Urine Color Yellow Urine Clarity Clear Urine pH 6.5 Ur Specific [place] 1.015 Urine Protein 30 H Urine Glucose (UA) Normal Urine Ketones Negative Urine Occult Blood 50 H Urine Nitrite Negative Urine Bilirubin Negative Urine Urobilinogen Normal Ur Leukocyte Esterase 25 H Urine RBC 5-10 SEEN Urine WBC 0-5 SEEN Ur Squamous Epith Cells 0 SEEN Urine Bacteria 1+ Hyaline Casts 10-25 SEEN Urine Mucus 0 SEEN Radiography Chest X-Ray - ED: 1 View, Read by ED Physician, Normal, Mediastinum, Bony Structures, No Acute Disease, Chronic Changes, Cardiomegaly and No Infiltrates Diagnostic Testing: Clinical Impression(s) from Imaging Studies Chest X-Ray 08/25/21 01:40 IMPRESSION: Normal x-ray examination of the chest. Electronically Signed: Dinora Casillas MD at 2:10 EST , Chest CTA 08/25/21 02:18 IMPRESSION: No demonstrated pulmonary embolism or arterial dissection. There is severe spinal canal stenosis at T9-10 due to large calcified disc herniation. Electronically Signed: Dinora Casillas MD at 3:47 EST , Waiting to of CTA of the chest. Per my review there is no evidence of pulmonary embolus. 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 This was not noted on scan performed 2011. EKG Initial EKG: Attestation: I personally reviewed and interpreted this EKG as follows: Interpretation: Paced (Atrial sensed ventricular paced rhythm. Rate is 76. MT interval is 112 ms. QRS duration 130 ms. QT duration 440 ms.) Discharge Plan Triage Chief Complaint: Chest Pain Other Complaint: Nausea/Vomiting/Diarrhea Syncope ED Provider: Alan Polo Dx/Rx/DC Orders Clinical Impression: Hypotension due to hypovolemia, Nausea vomiting and diarrhea, Acidosis, lactic, Chest pain at rest, Dyspnea, Urinary tract infection, Vasovagal syncopes Instructions: ED Chest Pain, Noncardiac, ED Chest Pain, Uncertain Cause, ED Dehydration (Adult), ED Fainting, Vagal Reaction, ED Vomiting and Diarrhea ... Prescriptions: No Action loratadine [Claritin] 10 mg tablet 10 mg PO QDAY PRN (Reason: allergies) RF: 0 nitroglycerin 0.4 MG tablet 0.4 mg SUBLINGUAL Q5M PRN (Reason: Chest Pain) RF: 0 cephalexin [cephalexin] 500 MG capsule 500 mg PO Q6 Qty: 40 RF: 0 phenazopyridine [Pyridium] 200 mg tablet 200 mg PO TID Qty: 10 RF: 0 amlodipine 5 mg tablet 5 mg PO DAILY Qty: 90 RF: 3 ezetimibe [Zetia] 10 mg tablet 10 mg PO DAILY Qty: 30 RF: 6 lisinopril 20 mg tablet 20 mg PO BID Qty: 180 RF: 3 carvedilol 25 mg tablet 25 mg PO BID Qty: 180 RF: 3 Primary Care Provider: Care Physician,No Primary Referrals: Care Physician,No Primary [Primary Care Provider] - Doctor,Your [STAFF PHYSICIAN] - 3-5 Days if not improving Disposition Disposition: Home, Self Care
--- NOTE | 2021-08-25 02:18 | CT_ITS ---
STUDY: CTA CHEST REASON FOR EXAM: Female, 66 years old. Moderate probability PE positive D-dimer RADIATION DOSAGE (If Supplied By Facility): CTDIvol = ( 10.52 ) mGy, DLP = ( 288.87 ) mGycm TECHNIQUE: The examination was performed with the intravenous administration of IV 100mL Isovue-370. Post-processing of the angiographic images was performed, with multiplanar reformation and 3D reconstruction. Individualized dose optimization techniques were used for this CT. COMPARISON: None. FINDINGS: Normal enhancement of the main pulmonary artery and right and left pulmonary arteries. Normal enhancement of the bilateral peripheral pulmonary arteries. There is no demonstrated pulmonary embolism. There is atherosclerotic tortuosity of the aortic arch and descending thoracic aorta. There is no demonstrated aortic dissection. Normal heart and pericardium. Normal mediastinum. Normal hilar regions. Normal visualized trachea and bronchi. The lungs are well expanded. Normal pulmonary parenchyma. Normal pleura. Normal chest wall structures. There are degenerative changes of thoracic spine. There is severe spinal canal stenosis at T9-10 due to large calcified disc herniation. Normal visualized upper abdomen. CT/CTA Chest W/WO Contrast IMPRESSION: No demonstrated pulmonary embolism or arterial dissection. There is severe spinal canal stenosis at T9-10 due to large calcified disc herniation. Electronically Signed: Dinroa Casillas MD at 3:47 EST ,
[2021-08-25 02:19] LABS: Bacteria 1+ /hpf (None Seen); Hyaline Cast 10-25 SEEN /lpf (0-5); Red Blood Cells-Urine 5-10 SEEN /hpf (0-5); White Blood Cells 0-5 SEEN /hpf (0-5)
[2021-08-25 02:32] LABS: Lactic Acid 2.1 mmol/L (0.4-1.9)
--- NOTE | 2021-08-25 02:32 | EKG12_ITS ---
Test Reason : CP Blood Pressure : / mmHG Vent. Rate : 076 BPM Atrial Rate : 076 BPM P-R Int : 112 ms QRS Dur : 130 ms QT Int : 440 ms P-R-T Axes : 064 248 073 degrees QTc Int : 495 ms Atrial-sensed ventricular-paced rhythm Biventricular pacemaker detected Abnormal ECG Confirmed by WALDEMAR BROWN, JENNIFER ([id number]), web content editor LIUDMILA FOFANA ([id number]) on 08/28/2021 12:51:21 PM Referred By: QAMAR Confirmed By:JENNIFER MEDEIROS MD
[2021-08-25 02:46] VITALS: BP 104/56; PULSE 82; RESP 16; O2SAT 100
[2021-08-25 03:52] VITALS: BP 110/66; PULSE 84; RESP 17; O2SAT 92
[2021-08-25 04:11] VITALS: BP 117/63; PULSE 81; RESP 23; O2SAT 96
[2021-08-25 05:45] LABS: Reflex Lactate? Y
== END 2021-08-25 04:11 | disposition home or self-care (01) ==
PROVIDERS: Emergency Provider Emergency Medicine; Visit Provider Emergency Medicine
DX: E86.1 Hypovolemia (principal); I42.8 Other cardiomyopathies; R11.2 Nausea with vomiting, unspecified; E78.5 Hyperlipidemia, unspecified; I10 Essential (primary) hypertension; R07.9 Chest pain, unspecified; E78.00 Pure hypercholesterolemia, unspecified; E87.2 Acidosis; I25.10 Atherosclerotic heart disease of native coronary artery without angina pectoris; R19.7 Diarrhea, unspecified; N39.0 Urinary tract infection, site not specified
CPT/HCPCS: 51702; 71045; 71275; 80048; 81001; 83605; 84484; 85025; 85379; 93005; 99285; J7030; Q9967; A4216

== ENCOUNTER 2021-09-11 09:49 | Outpatient (CLI) | payer MEDICARE, BC, SELFPAY ==
[2021-09-11 10:50] LABS: AST(SGOT) 17 U/L (15-37); Alanine Aminotransfer ALT/SGPT 21 U/L (13-56); Albumin, Serum 3.4 g/dL (3.2-5.0); Alkaline Phosphatase 66 U/L (45-117); Anion Gap 5 (5-15); BUN 13 mg/dL (7-18); BUN/Creat Ratio 16.5 RATIO (10-20); Calcium,Total 9.5 mg/dL (8.5-10.1); Chloride 102 mmol/L (98-107); Cholesterol 276 mg/dL (200); Creatinine, Serum 0.79 mg/dL (0.55-1.02); EST Glomerular Filtration Rate 77 mL/min (>60); Est Glom Filt Rate - Afr Amer 94 mL/min (>60); Globulin 3.5 g/dL (2.2-4.2); Glucose 103 mg/dL (74-106); High Density Lipoprotein 64 mg/dL; Potassium 4.5 mmol/L (3.5-5.1); Protein, Total 6.9 g/dL (6.4-8.2); Sodium Level 134 mmol/L (136-145); Triglycerides 111 mg/dL; Very Low Density Lipoprotein 22 mg/dL (5-40)
== END 2021-09-11 23:59 | disposition home or self-care (01) ==
LOC: LAB 09:51
PROVIDERS: Referring Provider Physician Assistant Medical; Visit Provider Physician Assistant Medical
DX: I25.10 Atherosclerotic heart disease of native coronary artery without angina pectoris (principal); I10 Essential (primary) hypertension; E78.00 Pure hypercholesterolemia, unspecified
CPT/HCPCS: 36415; 80053; 80061

== ENCOUNTER → 2023-03-02 | Outpatient (CLI) | payer MEDICARE, BC, SELFPAY ==
[2023-03-02 12:57] LABS: ALB/GLOB Ratio 1.1 RATIO (0.9-2.4); AST(SGOT) 18 U/L (15-37); Alanine Aminotransfer ALT/SGPT 29 U/L (13-56); Albumin, Serum 3.9 g/dL (3.2-5.0); Alkaline Phosphatase 56 U/L (45-117); Anion Gap 4 (5-15); BUN 15 mg/dL (7-18); BUN/Creat Ratio 20.1 RATIO (10-20); Calcium,Total 9.7 mg/dL (8.5-10.1); Chloride 100 mmol/L (98-107); Cholesterol 251 mg/dL (200); Creatinine, Serum 0.75 mg/dL (0.55-1.02); EST Glomerular Filtration Rate 82 mL/min (>60); Est Glom Filt Rate - Afr Amer 99 mL/min (>60); Globulin 3.4 g/dL (2.2-4.2); Glucose 110 mg/dL (74-106); High Density Lipoprotein 64 mg/dL; Potassium 4.7 mmol/L (3.5-5.1); Protein, Total 7.3 g/dL (6.4-8.2); Sodium Level 132 mmol/L (136-145); Triglycerides 112 mg/dL; Very Low Density Lipoprotein 22 mg/dL (5-40)
== END | disposition home or self-care (01) ==
LOC: LAB 11:35
PROVIDERS: PCP Family Medicine; Referring Provider Physician Assistant Medical; Visit Provider Physician Assistant Medical
DX: I10 Essential (primary) hypertension (principal); E78.5 Hyperlipidemia, unspecified; I25.10 Atherosclerotic heart disease of native coronary artery without angina pectoris
CPT/HCPCS: 36415; 80053; 80061

== ENCOUNTER 2023-10-20 08:26 | Day surgery (SDC) | payer MEDICARE, BC, SELFPAY ==
[2023-10-05 16:01] LABS: Hematocrit 44.1 % (37-47); Hemoglobin 14.1 g/dL (12.0-15.0); Mean Corpuscular Hgb 28.1 pg (27.0-32.0); Mean Platelet Vol. 11.2 fl (6.2-12.0); Platelet Count 149 K/mm3 (150-450); RBC Distribution Width CV 13.7 % (11.6-14.6); RBC Distribution Width SD 43.9 fl (35.1-43.9); Red Blood Count 5.01 M/mm3 (4.2-5.4); White Blood Count 5.3 K/mm3 (4.4-11.0)
[2023-10-05 16:03] LABS: Color, Urine Yellow (Yellow); Glucose, Dipstick Normal (Normal); Ketone-Dipstick Negative (Negative); Leukocyte Esterase-Dipstick Negative /ul (Negative); Nitrite-Dipstick Negative (Negative); Occult Blood-Urine 150 /ul (Negative); Protein-Dipstick Negative (Negative); Urine Bilirubin Dipstick Negative (Negative); Urine Clarity Sl. Cloudy (Clear); Urine Urobilinogen Normal (Normal); Urine pH 6.5 (5.0 - 8.0)
[2023-10-05 16:16] LABS: International Normalized Ratio 1.1; Prothrombin Time (Protime)PT. 14.1 SECONDS (11.7-14.9)
[2023-10-05 16:19] LABS: Bacteria 0 SEEN /hpf (None Seen); Mucous, Urine 0 SEEN /hpf (<or=2+); Red Blood Cells-Urine 5-10 SEEN /hpf (0-5); Squamous Epithelial Cells - UA 0-5 SEEN /hpf (5-10); White Blood Cells 0-5 SEEN /hpf (0-5)
[2023-10-05 16:23] LABS: Anion Gap 4 (5-15); BUN 16 mg/dL (7-18); BUN/Creat Ratio 21.9 RATIO (10-20); Chloride 105 mmol/L (98-107); Creatinine, Serum 0.73 mg/dL (0.55-1.02); EST Glomerular Filtration Rate 84 mL/min (>60); Est Glom Filt Rate - Afr Amer 101 mL/min (>60); Glucose 71 mg/dL (74-106); Potassium 4.1 mmol/L (3.5-5.1); Sodium Level 137 mmol/L (136-145)
--- NOTE | 2023-10-06 12:39 | HP.PCM_ITS ---
History and Physical Date of Admission: 10/20/23 Carmen Jacome is a 68-year-old female who presents today for a generator change. She has a history of single-vessel ostial LAD, ischemic cardiomyopathy, status post ICD implantation who underwent ICD revision in January of 2018 with a biventricular upgrade. She does not have any c The patient initially presented with an ejection fraction in the 18% range related to a nonischemic presumed viral cardiac. She was evaluated at [facility] and received TAX TECHNICIAN-D implant. Her left-ventricular function has completely recovered and her last evaluation I have is from 2019 her ejection fraction was 53% with echovirus with stage II diastolic dysfunction. The patient's most recent device interrogation from 09/03/2023 demonstrated RV and LV 100% paced and atrial pacing is less than 1% she has a little less than a year left on her battery life she did have 1 short burst of atrial fibrillation flutter with RVR. Her atrial amplitude was increased on today's visit. She is approaching ANUPAM. The patient is tolerating her current medical incident. She had had some near syncopal/syncopal spells felt to be related to her medication for her heart failure past. She is up and about regular activity level she denies any syncope or near syncope. She denies any PND orthopnea denies any chest discomfort she denies any lower extremity edema. She appears to be well compensated Intake Vital Signs See EMR Allergies See EMR Medications See EMR Ejection fraction %: 50 to 54 PFSH Medical History Atherosclerotic heart disease of [place] coronary artery without angina pectoris Essential (primary) hypertension Hyperlipidemia LBBB (left bundle branch block) Neurocardiogenic syncope Non-ischemic cardiomyopathy Nonsustained ventricular tachycardia Presence of biventricular automatic implantable cardioverter defibrillator (01/20/18) Surgical History History of back surgery History of carpal tunnel surgery History of electrophysiologic study (03/2007) Presence of biventricular implantable cardioverter-defibrillator (ICD) (05/24/08) Family History Brother HypertensionBrother HypertensionBrother CAD (coronary artery disease) Hypertension CVA (cerebral vascular accident)Sister Hypertension HLD (hyperlipidemia)Sister HypertensionSister HypertensionBrother Cancer Lung cancer Social History household members: spouse Smoking Status: Current every day smoker tobacco type: cigarettes alcohol intake: never substance use type: does not use diet: low salt caffeine: Yes (5-7 servings per day) Type: coffee what type of physical activity do you participate in: none seatbelt use: always do you feel safe at home: Yes ROS Const Const: Negative for fatigue or weakness ENT ENT: Negative for dizziness or balance problems Cardio Chest Pain: No Palpitations: No Edema: None Muscle aches with walking: None Resp Respiratory: Negative for SOB with activity, SOB at rest or SOB orthopnea\SOB lying down GI GI: Negative nausea, vomiting or heartburn Musc Musc: Negative for muscle weakness or balance problems Neuro Neuro: Negative for dizziness, lightheadedness, near syncope, syncope or weakness Endo Endo: Negative for fatigue Cardiology Exam Const Appearance: cooperative, comfortable and no acute distress Head Head: normal to inspection Eyes General: appearance normal, both eyes and all related structures Neck Neck: no JVD Carotids: Negative bruit Chest Chest inspection: Pacemaker/ICD Auscultation: Bilateral: Clear to Auscultation Cardio Rate: regular rate Rhythm: regular rhythm Heart sounds: S1 normal and S2 normal; Negative rub, gallop or murmur GI GI: normal to inspection and bowel sounds present Neuro General: patient alert and patient oriented x3 Skin Skin: no rashes or lesions noted Extremities Lower Extremity Edema: None: Bilateral Psych Psychological: normal affect Supplemental Info Supplemental Information Assessment and Plan Assessment and Plan (1) Presence of biventricular automatic implantable cardioverter defibrillator: Status: Chronic Comment: Implanted 05/2008, Gen Change 04/2014, Lead Revision 01/20/18 Plan: Patients devices has reached ANUPAM. Will proceed with generator change.
[2023-10-19 09:07] VITALS: BMI 26.2
[2023-10-20 10:24] LABS: AST(SGOT) 20 U/L (15-37); Alanine Aminotransfer ALT/SGPT 24 U/L (13-56); Albumin, Serum 3.4 g/dL (3.2-5.0); Alkaline Phosphatase 63 U/L (45-117); Bilirubin, Direct 0.12 mg/dL (0.00-0.30); Cholesterol 248 mg/dL (200); Globulin 3.2 g/dL (2.2-4.2); High Density Lipoprotein 64 mg/dL; Protein, Total 6.6 g/dL (6.4-8.2); Triglycerides 91 mg/dL; Very Low Density Lipoprotein 18 mg/dL (5-40)
--- NOTE | 2023-10-20 11:29 | EX.DEFIBPR_ITS ---
Defibrillator Procedure Note Defibrillator Procedure Note Carmen Jacome is a 68 year old female who has a past medical history of NICM s/p ADVERTISING EXECUTIVE-D, who presented to the [place] EP lab for further evaluation regarding a ADVERTISING EXECUTIVE-D generator changeout. The patient was brought to the electrophysiology laboratory in a fasting state. Sedation provided by myself and nurse staff. The left shoulder area was prepped and draped in the usual manner and the skin and subcutaneous tissues below the left clavicle were infiltrated with 1% lidocaine for local anesthesia. The skin was sharply incised. Electrocautery and blunt dissection were carried out to the level of the generator. The old generator was removed and disconnected from the leads. The new generator was connected to the leads. The device was noted to function appropriately. The pocket was noted to have an absence of active bleeding. The pulse generator was placed in the pocket. The pocket was then irrigated with antibiotic solution. The incision was closed with two layers of 2-0 Vicryl and a subcuticular closure of 4-0 Vicryl. The incision was dressed. Conclusions Successful ADVERTISING EXECUTIVE-D generator changeout with adequate pacing threshold, sensing and lead impedance. Recommendations 1. Routine follow-up in the device clinic. 2. Remove outer dressing after 48 hours. Leave steri-strips intact for 7-10 days, then remove if it does not fall off by itself. 3. Device follow up as scheduled. 4. Hold anticoagulation for 24 hours (No heparin IV or NOAC, ok to continue warfarin). 5. The patient can continue to follow-up with Dr. Crews.
== END 2023-10-20 12:43 | disposition home or self-care (01) ==
LOC: CLSP 08:28
PROVIDERS: Internal Medicine Cardiovascular Disease; Physician Assistant Medical; PCP Family Medicine; Referring Provider Internal Medicine; Visit Provider Internal Medicine
DX: Z45.02 Encounter for adjustment and management of automatic implantable cardiac defibrillator (principal); I25.10 Atherosclerotic heart disease of native coronary artery without angina pectoris; Z95.810 Presence of automatic (implantable) cardiac defibrillator; I10 Essential (primary) hypertension; E78.5 Hyperlipidemia, unspecified; F17.210 Nicotine dependence, cigarettes, uncomplicated
CPT/HCPCS: 33264; 36415; 80048; 80061; 80076; 81001; 85027; 85610; 93641; 99152; 99153; J7040; J7050

== ENCOUNTER → 2024-08-29 | Outpatient (CLI) | payer MEDICARE, BC, SELFPAY ==
[2024-08-29 21:15] LABS: AST(SGOT) 18 U/L (15-37); Alanine Aminotransfer ALT/SGPT 24 U/L (13-56); Albumin, Serum 3.4 g/dL (3.2-5.0); Alkaline Phosphatase 61 U/L (45-117); Bilirubin, Direct 0.12 mg/dL (0.00-0.30); Cholesterol 240 mg/dL (200); Globulin 3.3 g/dL (2.2-4.2); High Density Lipoprotein 61 mg/dL; Protein, Total 6.7 g/dL (6.4-8.2); Triglycerides 109 mg/dL; Very Low Density Lipoprotein 22 mg/dL (5-40)
== END | disposition home or self-care (01) ==
LOC: LAB 10:52
PROVIDERS: PCP Family Medicine; Referring Provider Physician Assistant Medical; Visit Provider Physician Assistant Medical
DX: E78.5 Hyperlipidemia, unspecified (principal); I42.8 Other cardiomyopathies
CPT/HCPCS: 36415; 80061; 80076

== ENCOUNTER → 2024-11-21 | Outpatient (CLI) | payer MEDICARE, BC, SELFPAY ==
--- NOTE | 2024-11-21 08:57 | ECHOD_ITS ---
Reason For Study Reason For Study: Dilated Cardiomyopathy Procedure This was a 2D Doppler, Color Flow transthoracic echocardiogram. Exam performed in department. Left Ventricle Normal LV size. Sigmoid septum. Left ventricular systolic function is normal. The left ventricular ejection fraction is 50 %. Stage 1 diastolic dysfunction. Apical wall motion abnormality may reflect pacemaker activation. Right Ventricle Normal RV size. ICD or pacer leads identified within the right ventricle. Normal systolic function. Atria Normal left atrium. Normal right atrium. ICD or pacer leads identified within the right atrium. Echogenic mobile mass noted in right atrium possibly Chiari network but cannot exclude mobile thrombus. Does not appear to be directly attached to the pacemaker leads. Tricuspid Valve Normal tricuspid valve. Mild (1+) tricuspid valve insufficiency. Pulmonary artery systolic pressure is 28 mmHg. Aortic Valve Trisinus/trileaflet aortic valve. Pulmonic Valve Normal pulmonic valve. Great Vessels Normal aortic root. The pulmonary artery is normal size. Inferior vena cava collapse with respiration. Pericardium/Pleural No pericardial effusion. MMode/2D Measurements & Calculations LVIDd: 4.2 cm IVSd: 1.7 cm LVOT diam: 2.0 cm LVIDs: 2.7 cm LVPWd: 1.1 cm LVOT area: 3.1 cm2 RVDd: 3.0 cm FS: 34.3 % Ao root diam: 3.2 cm LAV(MOD-bp): 39.4 ml LVAd ap4: 20.1 cm2 LAV(MOD-bp) Indexed: 25.1 ml/m2 LVLd ap4: 6.9 cm LAV(MOD-sp2): 26.2 ml EDV(MOD-sp4): 52.3 ml LAV(MOD-sp4): 44.8 ml EDV(sp4-el): 49.8 ml LVAs ap4: 14.3 cm2 LVLs ap4: 6.1 cm ESV(MOD-sp4): 31.1 ml ESV(sp4-el): 28.6 ml EF(MOD-sp4): 40.5 % EF(sp4-el): 42.6 % SV(MOD-sp4): 21.2 ml SV(MOD-sp2): 31.0 ml LVAd ap2: 21.0 cm2 LVLd ap2: 7.0 cm SI(MOD-sp4): 13.5 ml/m2 SI(MOD-sp2): 19.7 ml/m2 EDV(MOD-sp2): 54.1 ml EDV(sp2-el): 53.0 ml LVAs ap2: 12.7 cm2 LVLs ap2: 6.6 cm ESV(MOD-sp2): 23.1 ml ESV(sp2-el): 20.7 ml EF(MOD-sp2): 57.3 % SV(sp4-el): 21.2 ml LA A4 area: 17.8 cm2 LA dimension(2D): 3.1 cm TAPSE: 1.4 cm RA A4 area: 13.8 cm2 Time Measurements MV dec time: 0.26 sec Doppler Measurements & Calculations MV E max dillon: 50.3 cm/sec Lat Peak E' Dillon: 7.1 cm/sec Med Peak E' Dillon: 4.3 cm/sec MV A max dillon: 72.0 cm/sec E/E' lat: 7.1 E/E' med: 11.8 MV E/A: 0.70 MV dec slope: 191.0 cm/sec2 Ao V2 max: 117.2 cm/sec LV V1 max: 86.2 cm/sec Ao max P.5 mmHg LV V1 max P.0 mmHg Ao V2 mean: 79.5 cm/sec LV V1 mean P.4 mmHg Ao mean P.8 mmHg LV V1 mean: 54.7 cm/sec Ao V2 VTI: 24.3 cm LV V1 VTI: 18.6 cm AV (velocity ratio): 0.77 IVET(I,D): 2.4 cm2 IVET(V,D): 2.3 cm2 SV(LVOT): 57.3 ml PA V2 max: 60.1 cm/sec TR max dillon: 246.9 cm/sec TR max P.4 mmHg ECHO/Echo Complete Interpretation Summary Normal LV size. Left ventricular systolic function is normal. The left ventricular ejection fraction is 50 %. Stage 1 diastolic dysfunction. Pulmonary artery systolic pressure is 28 mmHg. Echogenic mobile mass noted in right atrium possibly Chiari network but cannot exclude mobile thrombus. Does not appear to be directly attached to the pacemaker leads. Ordering Physician: Bhavna Dawson Referring Physician: MD Miguel Danielito Performed By: Thalia Ferris, RDROSEY
== END | disposition home or self-care (01) ==
PROVIDERS: PCP Family Medicine; Referring Provider Physician Assistant Medical; Visit Provider Physician Assistant Medical
DX: I42.8 Other cardiomyopathies (principal); I42.0 Dilated cardiomyopathy
CPT/HCPCS: 93306

== ENCOUNTER → 2025-02-21 | Outpatient (CLI) | payer MEDICARE, BC, SELFPAY ==
--- NOTE | 2025-02-21 08:57 | ECHOD_ITS ---
Reason For Study : Dilated CMP Procedure This was a 2D Doppler, Color Flow transthoracic echocardiogram. Exam performed in department. Left Ventricle Normal LV size. Left ventricular systolic function is normal. The left ventricular ejection fraction is 50 %. No regional wall motion abnormalities noted. Right Ventricle Normal RV size. ICD or pacer leads identified within the right ventricle. Small mobile echogenic structure seen near the pacemaker leads. Normal systolic function. Atria Normal left atrium. Normal right atrium. Mitral Valve Normal mitral valve. Systolic anterior motion of the mitral valve. Mild (1+) eccentric mitral valve insufficiency. Tricuspid Valve Normal tricuspid valve. Mild (1+) tricuspid valve insufficiency. Pulmonary artery systolic pressure is 26 mmHg. Aortic Valve Trisinus/trileaflet aortic valve. Pulmonic Valve Normal pulmonic valve. Great Vessels Normal aortic root. The pulmonary artery is normal size. Inferior vena cava collapse with respiration. Pericardium/Pleural No pericardial effusion. MMode/2D Measurements & Calculations LVIDd: 4.9 cm IVSd: 1.6 cm Ao root diam: 2.8 cm LVIDs: 3.7 cm LVPWd: 1.1 cm RVDd: 3.0 cm FS: 24.5 % LAV(MOD-bp): 25.4 ml LVAd ap4: 19.6 cm2 LVAd ap2: 21.1 cm2 LAV(MOD-bp) Indexed: 15.9 ml/m2 LVLd ap4: 6.9 cm LVLd ap2: 7.2 cm LAV(MOD-sp2): 21.5 ml EDV(MOD-sp4): 48.6 ml EDV(MOD-sp2): 52.9 ml LAV(MOD-sp4): 25.8 ml EDV(sp4-el): 47.0 ml EDV(sp2-el): 52.7 ml LVAs ap4: 13.3 cm2 LVAs ap2: 14.4 cm2 LVLs ap4: 6.2 cm LVLs ap2: 6.8 cm ESV(MOD-sp4): 27.9 ml ESV(MOD-sp2): 26.2 ml ESV(sp4-el): 24.2 ml ESV(sp2-el): 25.8 ml EF(MOD-sp4): 42.5 % EF(MOD-sp2): 50.4 % EF(sp4-el): 48.5 % SV(MOD-sp4): 20.6 ml SV(MOD-sp2): 26.7 ml SV(sp4-el): 22.8 ml SI(MOD-sp4): 12.9 ml/m2 SI(MOD-sp2): 16.6 ml/m2 LA A4 area: 12.9 cm2 LA dimension(2D): 3.1 cm RA A4 area: 14.3 cm2 TAPSE: 1.4 cm Time Measurements MV dec time: 0.21 sec Doppler Measurements & Calculations MV E max dillon: 45.0 cm/sec Lat Peak E' Dillon: 5.3 cm/sec Med Peak E' Dillon: 3.6 cm/sec MV A max dillon: 79.2 cm/sec E/E' lat: 8.5 E/E' med: 12.6 MV E/A: 0.57 Ao V2 max: 124.9 cm/sec LV V1 max: 81.7 cm/sec MV dec slope: 215.1 cm/sec2 Ao max P.2 mmHg LV V1 max P.7 mmHg Ao V2 mean: 86.0 cm/sec LV V1 mean P.4 mmHg Ao mean P.3 mmHg LV V1 mean: 54.6 cm/sec Ao V2 VTI: 26.5 cm LV V1 VTI: 16.9 cm AV (velocity ratio): 0.64 PA V2 max: 66.7 cm/sec TR max dillon: 235.3 cm/sec TR max P.2 mmHg ECHO/Echo Complete Interpretation Summary Normal LV size. Left ventricular systolic function is normal. ICD or pacer leads identified within the right ventricle. The left ventricular ejection fraction is 50 %. Small mobile echogenic structure seen near the pacemaker leads. Ordering Physician: Seamus Crews Referring Physician: MD Miguel Danielito Performed By: Thalia Ferris, [id number]
== END | disposition home or self-care (01) ==
LOC: CVS 08:54
PROVIDERS: PCP Family Medicine; Referring Provider Internal Medicine Cardiovascular Disease; Visit Provider Internal Medicine Cardiovascular Disease
DX: I42.8 Other cardiomyopathies (principal); I25.10 Atherosclerotic heart disease of native coronary artery without angina pectoris; I10 Essential (primary) hypertension; E78.00 Pure hypercholesterolemia, unspecified; I44.7 Left bundle-branch block, unspecified
CPT/HCPCS: 93306

== ENCOUNTER → 2025-02-24 | Outpatient (CLI) | payer MEDICARE, BC, SELFPAY ==
--- OUTSIDE RECORDS SUMMARY | 2025-02-24 07:16 | XMS RPT_ITS | CCD ---
Author Organization [facility] Care Team Providers Care Business Broker Name Role Phone VITOR Alvarado, Odilia Gaxiola Unavailable Unavailable MARITA Dawson, Bhavna Gaxiola Unavailable [phone] FILI NOLAN Unavailable Unavailable CEBUL, TITI A Unavailable Unavailable CEBUL, TITI A Unavailable Unavailable LUDY, CHARITY G Unavailable Unavailable ELEONORASEAMUS Unavailable Unavailable CEBUL, TITI A Unavailable Unavailable LUDY, CHARITY G Unavailable Unavailable LUDY, CHARITY G Unavailable Unavailable CEBUL, TITI A Unavailable Unavailable LUDY, CHARITY G Unavailable Unavailable LUDY, CHARITY G Unavailable Unavailable CEBUL, TITI A Unavailable Unavailable CEBUL, TITI Unavailable Unavailable MICHAEL, TONE Unavailable Unavailable MICHAEL, TONE Unavailable Unavailable Jenny, VITOR, Odilia Gaxiola Unavailable Unavailable Jenny, VITOR, Odilia Gaxiola Unavailable Unavailable Jenny, VITOR, Odilia Gaxiola Unavailable Unavailable Jenny, VITOR, Odilia Gaxiola Unavailable Unavailable Tia Rivera MD Primary Care Provider Dr. Seamus Crews Attending Provider [phone] Dr. Seamus Crews Referring Provider [phone] Zhanna Alvarado Attending Provider Unavailable Dr. Tia Rivera Primary Care Provider Dr. Tia Rivera Referring Provider [phone] ELSA Ballesteros Attending Provider Dr. Tia Rivera Primary Care Provider Dr. Seamus Crews Attending Provider [phone] Dr. Seamus Crews Referring Provider [phone] Dr. Tia Rivera Referring Provider [phone] Zhanna Alvarado Attending Provider Unavailable Dr. Jamar Resendiz Attending Provider Dr. Gold Marti Other Provider [phone] Tia Rivera MD Primary Care Provider Luis PORTABLE TRACK LINE MARKER.HANS Lizeth Unavailable Earle PORTABLE TRACK LINE MARKER.SOFTWARE ENGINEERING MANAGER, Betito Unavailable Miguel BROWN, Dr. Esteves Primary Care Provider [phone] Eleonora BROWN, Dr. Way Attending Provider Eleonora BROWN, Dr. Way Referring Provider Miguel BROWN, Dr. Esteves Referring Provider [phone] Bhavna Ballesteros Attending Provider Bhavna Ballesteros Referring Provider Miguel BROWN, Dr. Esteves Primary Care Provider Eleonora BROWN, Dr. Way Attending Provider Eleonora BROWN, Dr. Way Referring Provider Bhavna Ballesteros Attending Provider Bhavna Ballesteros Referring Provider TIA RIVERA Primary Care Unavailable LIZETH SMITH Attending Unavailable Eleonora, Seamus Attending Unavailable Eleonora, Seamus Referring Unavailable Elderbrock, Tia Primary Care Unavailable Eleonora, Clive Attending Unavailable Elderbrock, Tia Primary Care Unavailable Zhanna Alvarado Attending Unavailable Elderbrock, Tia Referring Unavailable Elderbrock, Tia Primary Care Unavailable Elderbrock, Tia Primary Care Unavailable Eleonora, Clive Attending Unavailable Eleonora, Seamus Attending Unavailable Eleonora, Clive Referring Unavailable Elderbrock, Tia Primary Care Unavailable Bhavna Dawson Attending Unavailabl e Elderbrock, Tia Referring Unavailable Elderbrock, Tia Primary Care Unavailable Eleonora, Seamus Attending Unavailable Eleonora, Clive Referring Unavailable Elderbrock, Tia Primary Care Unavailable Elderbrogardenia, Tia Referring Unavailable Bhavna Dawson Attending Unavailabl e Elderbrogardenia, Tia Primary Care Unavailable Elderbrock, Tia Referring Unavailable Eleonora, Seamus Attending Unavailable Elderbrock, Tia Primary Care Unavailable Eleonora, Seamus Attending Unavailable Elderbrock, Tia Primary Care Unavailable Eleonora, Seamus Attending Unavailable Elderbrock, Tia Primary Care Unavailable Eleonora, Seamus Attending Unavailable Elderbrock, Tia Primary Care Unavailable Eleonora, Clive Referring Unavailable Elderbrock, Tia Referring Unavailable Bhavna Dawson Attending Unavailabl e Elderbrock, Tia Primary Care Unavailable Eleonora, Seamus Attending Unavailable Elderbrock, Tia Primary Care Unavailable Eleonora, Seamus Referring Unavailable Eleonora, Clive Attending Unavailable Elderbrock, Tia Primary Care Unavailable Eleonora, Seamus Referring Unavailable Eleonora, Clive Attending Unavailable Elderbrock, Tia Primary Care Unavailable Eleonora, Seamus Referring Unavailable Eleonora, Clive Attending Unavailable Elderbrock, Tia Primary Care Unavailable Dawson, Bhavna Gaxiola Referring Unavailabl e Eunice, Bhavna Gaxiola Attending Unavailabl e Elderbrock, Tia Primary Care Unavailable Bhavna Dawson Referring Unavailabl e Dawson, Bhavna Gaxiola Attending Unavailabl e Elderbrock, Tia Primary Care Unavailable Eleonora, Clive Attending Unavailable Elderbrock, Tia Primary Care Unavailable Eleonora, Seamus Attending Unavailable Elderbrock, Tia Primary Care Unavailable Eleonora, Clive Referring Unavailable Elderbrock Dr. Tia BROWN Primary Care Provider Dr. Seamus Crews MD Attending Provider Eleonora BROWN, Dr. Way Referring Provider Allergies Allergy Classification Reported Allergen(s) Allergy Type Date of Onset Reaction(s) Facility (9 sources) rosuvastatin drug allergy 3 myalgias [facility] Work Phone: (9 sources) SUMAtriptan drug allergy 1 Swelling of throat [facility] Work Phone: (19 sources) SUMAtriptan; Translations: [SUMATRIPTAN SUCCINATE] Drug Allergy 5 Unknown [facility] Repository (10 sources) HMG-CoA reductase inhibitor; Translations: [[id number] REDUCTASE INHIBITORS] Drug Intolerance 2 Myalgia [facility] Work Phone: (7 sources) rosuvastatin; Translations: [rosuvastatin calcium] Drug Allergy 3 Unknown [facility] (6 sources) SUMAtriptan Drug Allergy 3 Unknown [facility] (1 source) SUMAtriptan Drug Allergy 5 [facility] Repository Medications Current Medications Medication Drug Class(es) Dates Sig (Normalized) Sig (Original) amLODIPine 2.5 mg oral tablet (20 sources) Dihydropyridine Calcium Channel Samir Start: 03-02-2023 End: 04-19-2024 take 1 tablet by mouth once daily Amlodipine 2.5 mg tablet Active 2.5 mg PO DAILY 90 April 19, 2024 8:20am Start: 02-02-2020 End: 12-10-2021 take 1 tablet by mouth once daily Amlodipine 5 mg tablet Discontinued 5 mg PO DAILY 90 March 04, 2021 5:05pm December 10, 2021 9:15am Start: 11-21-2019 End: 02-02-2020 take 1 tablet by mouth once daily Amlodipine 2.5 mg tablet Discontinued 2.5 mg PO DAILY 30 November 21, 2019 12:00am February 02, 2020 10:53am Comment on above: Take 5 mg by mouth o nce daily. apixaban 5 mg oral tablet (3 sources) Factor Xa Inhibitor Start: 11-21-2024 take 1 tablet by mouth twice daily Apixaban (Eliquis) 5 mg tablet Active 5 mg PO TWICE A DAY 60 November 21, 2024 12:00am furosemide 40 mg oral tablet (20 sources) Loop Diuretic Start: 02-16-2025 End: 02-22-2025 take 1 tablet by mouth once daily as needed Furosemide (Lasix) 40 mg tablet Active 40 mg PO DAILY 30 February 22, 2025 3:38pm edema PRN for 3 days Start: 12-05-2010 End: 10-12-2017 take 1 tablet by mouth once daily Furosemide 20 MG tablet Discontinued 20 mg PO DAILY April 04, 2014 12:00am October 12, 2017 5:12pm nitroglycerin 0.4 mg sublingual tablet (15 sources) Nitrate Vasodilator Start: 04-04-2014 Nitroglyce rin 0.4 MG tablet Active 0.4 mg SL Q5M as needed for Chest Pain April 04, 2014 12:00am Start: 04-04-2014 Nitroglycerin Active 0.4 MG SL Q5M April 04, 2014 12:00am Start: 12-05-2010 NITROSTAT 0.4 MG SUBL 1 tablet under tongue every 5 min up to 3 X NITROGLYCERIN [id number] Patricia Desai omeprazole 20 mg delayed release oral capsule (9 sources) Proton Pump Inhibitor Start: 04-27-2023 End: 05-16-2024 take 1 capsule by mouth once daily before breakfast omeprazole (PRILOSEC) 20 mg capsule Indications: Generalized abdominal pain , Nausea and vomiting, unspecified vomiting type Take 1 capsule by mouth daily before breakfast. 1/2 hr before meal. 90 capsule 3 05/16/2024 Active Comment on above: Take 1 capsule by mo [facility] daily before breakfast. 1/2 hr before meal. Completed/Discontinued Medications Medication Drug Class(es) Dates Sig (Normalized) Sig (Original) aspirin 81 mg chewable tablet (20 sources) Platelet Aggregation Inhibitor, Nonsteroidal Anti-inflammatory Drug Start: 04-04-2014 End: 05-17-2019 take 1 tablet by mouth once daily Aspirin 81 MG tablet,chewable Discontinued 81 mg PO DAILY@0800 April 04, 2014 12:00am May 17, 2019 12:39pm Start: 03-29-2012 take 1 tablet by jax th once daily ASPIRIN 81 MG TABS One tablet by mouth daily ASPIRIN [id number] Simeon Brandon MD Start: 03-29-2012 take 1 tablet by jax th once daily ASPIRIN 81 MG TABS One tablet by mouth daily ASPIRIN [id number] Simeon Brandon MD Start: 12-05-2010 take 2 tablets by mo ut once daily ASPIRIN 81 MG TABS Two tablets by mouth daily ASPIRIN [id number] Patricia Desai Start: 12-05-2010 take 2 tablets by mo ut once daily ASPIRIN 81 MG TABS Two tablets by mouth daily ASPIRIN [id number] Patricia Desai Start: 04-20-2007 take 1 tablet by jax th once daily ASPIRIN EC 81 MG TBEC One tablet by mouth daily ASPIRIN [id number] Christa Abreu Comment on above: Take one(1) tablet d aily. atorvastatin 20 mg oral tablet (6 sources) HMG-CoA Reductase Inhibitor Start: 9 End: 0 take 1 tablet by mouth at bedtime Atorvastatin (Lipitor) 20 mg tablet Discontinued 20 mg PO AT BEDTIME 30 October 29, 2018 12:00am November 21, 2019 11:38am carvedilol 25 mg oral tablet (20 sources) alpha-Adrenergic Samir, beta-Adrenergic Samir Start: 8 End: 5 take 1 tablet by mouth twice daily Carvedilol 25 mg tablet Discontinued 25 mg PO TWICE A DAY 180 July 29, 2023 2:31pm August 22, 2024 11:39am Start: 12-05-2010 End: 03-09-2018 take 1 tablet by mouth twice daily Carvedilol 12.5 mg tablet Discontinued 12.5 mg PO TWICE A DAY 180 February 18, 2018 12:08pm March 09, 2018 9:23am Comment on above: Take 1 tablet by jax th twice daily. cephalexin 500 mg oral capsule (6 sources) Cephalosporin Antibacterial Start: 2 End: 2 take 1 capsule by mouth every six hours Cephalexin 500 MG capsule Discontinued 500 mg PO EVERY 6 HOURS 40 0 August 18, 2021 1:00am September 11, 2021 9:59am ezetimibe 10 mg oral tablet (20 sources) Dietary Cholesterol Absorption Inhibitor Start: 1 End: 5 take 1 tablet by mouth once daily Ezetimibe (Zetia) 10 mg tablet Discontinued 10 mg PO DAILY 90 July 29, 2023 2:31pm August 09, 2024 9:11am Start: 02-02-2020 End: 10-05-2020 take 1 tablet by mouth once daily Ezetimibe (Zetia) 10 mg tablet Discontinued 10 mg PO DAILY 30 February 02, 2020 12:00am October 05, 2020 10:00am Start: 06-25-2012 End: 03-30-2014 take 1 tablet by mouth once daily ZETIA 10 MG TABS one tablet by mouth daily EZETIMIBE [id number] Seamus Crews MD Comment on above: Take 10 mg by mouth once daily. gabapentin 300 mg oral capsule (18 sources) Anti-epileptic Agent Start: 12-05-2010 End: 10-23-2011 take 1 tablet by mouth twice daily NEURONTIN 300 MG CAPS One tablet by mouth twice daily GABAPENTIN [id number] Patricia Desai Start: 12-05-2010 End: 10-23-2011 take 1 tablet by mouth twice daily NEURONTIN 300 MG CAPS One tablet by mouth twice daily GABAPENTIN [id number] Patricia Desai hydroCHLOROthiazide 25 mg oral tablet (6 sources) Thiazide Diuretic Start: 10-05-2020 End: 05-02-2021 take 1 tablet by mouth once daily Hydrochlorothiazide 25 mg tablet Discontinued 25 mg PO DAILY 90 October 05, 2020 12:00am May 02, 2021 11:34am lisinopril 20 mg oral tablet (20 sources) Angiotensin Converting Enzyme Inhibitor Start: 05-17-2019 End: 08-09-2024 take 1 tablet by mouth twice daily Lisinopril 20 mg tablet Discontinued 20 mg PO TWICE A DAY 180 July 29, 2023 2:30pm August 09, 2024 9:11am Start: 10-19-2018 End: 05-17-2019 take 1 tablet by mouth twice daily Lisinopril 10 mg tablet Discontinued 10 mg PO TWICE A DAY 180 October 19, 2018 11:25am May 17, 2019 12:39pm Start: 12-05-2010 End: 10-19-2018 take 1 tablet by mouth twice daily Lisinopril 5 mg tablet Discontinued 5 mg PO TWICE A DAY 180 May 31, 2018 2:12pm October 19, 2018 11:25am Comment on above: Take 1 tablet by jax th twice daily. loratadine 10 mg oral tablet (20 sources) Start: 03-23-2013 End: 10-12-2017 take 1 tablet by mouth once daily Loratadine 10 MG tablet Discontinued 10 mg PO DAILY April 04, 2014 12:00am October 12, 2017 5:13pm Start: 03-23-2013 take 1 tablet by jax th once daily CLARITIN 10 MG CAPS One tablet by mouth daily LORATADINE [id number] Seamus Crews MD phenazopyridine hydrochloride 200 mg oral tablet (6 sources) Start: 08-18-2021 End: 09-11-2021 take 1 tablet by mouth three times daily Phenazopyridine (Pyridium) 200 mg tablet Discontinued 200 mg PO THREE TIMES A DAY 10 0 August 18, 2021 1:00am September 11, 2021 9:59am prednisone taper (6 sources) Start: 05-17-2019 End: 11-21-2019 prednisone taper Discontinued PO 0 May 17, 2019 1:00am November 21, 2019 11:38am Start: 05-17-2019 End: 11-21-2019 prednisone taper Discontinue d PO May 17, 2019 12:00am November 21, 2019 10:38am Start: 05-17-2019 End: 11-21-2019 prednisone taper Discontinue d PO May 17, 2019 1:00am November 21, 2019 11:38am rosuvastatin calcium 10 mg oral tablet (20 sources) HMG-CoA Reductase Inhibitor Start: 09-29-2013 End: 03-30-2014 take 1 tablet by mouth every other day CRESTOR 10 MG TABS One tablet by mouth every other day ROSUVASTATIN CALCIUM [id number] Seamus Crews MD Start: 12-05-2010 End: 03-23-2013 take 1 tablet by mouth at bedtime CRESTOR 20 MG TABS One tablet by mouth at bedtime. ROSUVASTATIN CALCIUM [id number] Simeon Brandon MD spironolactone 25 mg oral tablet (20 sources) Aldosterone Antagonist Start: 08-26-2022 End: 09-03-2023 take 1 tablet by mouth once daily Spironolactone 25 mg tablet Discontinued 25 mg PO DAILY 90 3 March 02, 2023 11:17am September 03, 2023 12:34pm On Hold: BP very low. Start: 12-05-2010 End: 05-17-2019 take 1 tablet by mouth once daily Spironolactone 25 mg tablet Discontinued 25 mg PO DAILY 90 3 January 25, 2019 3:47pm May 17, 2019 12:39pm Comment on above: Take 1 tablet by jax th every morning. Problems Active Problems Problem Classification Problem Date Documented Date Episodic/Chronic Abdominal pain (2 sources) Generalized abdominal pain; Translations: [Generalized abdominal pain] 05-04-2023 Episodic Cardiac dysrhythmias (12 sources) Nonsustained ventricular tachycardia ; Translations: [Nonsustained ventricular tachycardia] Onset: 11-15-2024 05-13-2019 Chronic Conduction disorders (20 sources) Left bundle branch block; Translations: [Combination internal cardiac defibrillator and pacemaker in situ] Onset: 12-05-2010 12-05-2010 Chronic Comment on above: Implanted 05/2008, G en Change 04/2014, Lead Revision 01/20/18The patient denies any syncope or near syncope per device is nearing ANUPAM. Coronary atherosclerosis and other heart disease (20 sources) Coronary atherosclerosis; Translations: [Atherosclerotic heart disease of [place] coronary artery without angina pectoris] Onset: 12-05-2010 Resolved: 09-18-2015 12-05-2010 Chronic Comment on above: The patient denies a ny anginal symptoms she has a 50% mid LAD lesion that has been documented on 2 separate catheterizations and was unchanged. She is intolerant of statin therapy and is trialed multiple statins. She is on ezetimibe and is due to have her fasting lipids and liver functions evaluation. Disorders of lipid metabolism (20 sources) Hyperlipidemia; Translations: [Pure hypercholesterolemia] Onset: 12-05-2010 12-05-2010 Chronic Essential hypertension (20 sources) Hypertensive disorder; Translations: [Benign essential hypertension] Onset: 12-05-2010 12-05-2010 Chronic Comment on above: Patient's blood pres sure is elevated in the office today 145/93. This will be reevaluated at her next office visit if he continues to be elevated in her home environment I would recommend that we increase therapy by increasing her lisinopril or amlodipine. Fluid and electrolyte disorders (11 sources) Lactic acidosis; Translations: [Lactic acidosis] 09-02-2021 Episodic Nausea and vomiting (7 sources) Nausea, vomiting and diarrhea; Translations: [Nausea with vomiting, unspecified] 09-02-2021 Episodic Nonspecific chest pain (12 sources) Chest pain at rest; Translations: [Chest pain, unspecified] 09-02-2021 Episodic Osteoarthritis (9 sources) Arthritis of hip; Translations: [Unilateral primary osteoarthritis, unspecified hip] Onset: 03-23-2018 03-23-2018 Chronic Other circulatory disease (1 source) Low blood pressure; Translations: [Other hypotension] 09-02-2021 Episodic Other lower respiratory disease (6 sources) Dyspnea; Translations: [Dyspnea, unspecified] 09-02-2021 Episodic Other screening for suspected conditions (not mental disorders or infectious disease) (5 sources) Patient encounter status; Translations: [Encounter for screening mammogram for malignant neoplasm of breast] Episodic Krystina-; endo-; and myocarditis; cardiomyopathy (except that caused by tuberculosis or sexually transmitted disease) (20 sources) Dilated cardiomyopathy; Translations: [Cardiomyopathy in diseases classified elsewhere] Onset: 04-20-2007 Resolved: 04-27-2023 03-15-2015 Chronic Comment on above: 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 Spondylosis; intervertebral disc disorders; other back problems (10 sources) Degeneration of lumbar intervertebral disc; Translations: [Other intervertebral disc degeneration, lumbar region] Onset: 09-26-2021 09-26-2021 Chronic Substance-related disorders (11 sources) Nicotine dependence, cigarettes, uncomplicated; Translations: [Tobacco dependence syndrome] Onset: 12-05-2010 Resolved: 03-15-2015 03-15-2015 Chronic Substance-related disorders (20 sources) Tobacco dependence syndrome; Translations: [Tobacco user] Onset: 04-20-2007 Resolved: 03-15-2015 03-15-2015 Chronic Syncope (8 sources) Syncope and collapse; Translations: [Syncope and collapse] Onset: 03-13-2018 09-02-2021 Episodic Unclassified (3 sources) Implantation of automatic cardiac defibrillator ; Translations: [Presence of automatic (implantable) cardiac defibrillator] Onset: 12-05-2010 12-05-2010 Unclassified (8 sources) Long-term drug therapy; Translations: [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) drug therapy] Onset: 12-05-2010 12-05-2010 Unclassified (1 source) Other mechanical complication of cardiac electrode, initial encounter / T82.190A(ICD-10) Onset: 01-20-2018 Unclassified (1 source) Other mechanical complication of other cardiac electronic device, initial encounter / T82.198A(ICD-10) Onset: 12-18-2017 Unclassified (1 source) Other mechanical complication of cardiac electrode, subsequent encounter / T82.190D(ICD-10) Onset: 12-18-2017 Unclassified (1 source) Dilated cardiomyopathy / I42.0(ICD-10) Onset: 12-18-2017 Unclassified (1 source) Unknown / UNK(Unknown) Onset: 03-13-2018 Unclassified (1 source) Degeneration of intervertebral disc of lumbar region, unspecified whether pain present; Translations: [Degeneration of intervertebral disc of lumbar region, unspecified whether pain present] Onset: 09-26-2021 Urinary tract infections (12 sources) Urinary tract infectious disease; Translations: [Urinary tract infection, site not specified] 09-02-2021 Episodic Past or Other Problems Problem Classification Problem Date Documented Date Episodic/Chronic Genitourinary symptoms and ill-defined conditions (9 sources) Microscopic hematuria; Translations: [Other microscopic hematuria] Onset: 10-02-2011 10-02-2011 Episodic Other aftercare (1 source) Other senior care (current) drug therapy; Translations: [Other senior care (current) drug therapy] Onset: 12-05-2010 12-05-2010 Episodic Residual codes; unclassified (15 sources) FH: Hypertension; Translations: [Family history of stroke] 03-14-2015 Episodic Residual codes; unclassified (6 sources) Family history of stroke; Translations: [Family history of stroke] 03-14-2015 Episodic Residual codes; unclassified (6 sources) FH: Raised blood lipids; Translations: [Family history of other endocrine, nutritional and metabolic diseases] 03-14-2015 Episodic Screening and history of mental health and substance abuse codes (2 sources) Encounter for screening examination for other mental health and behavioral disorders; Translations: [Encounter for screening for depression] Onset: 06-08-2024 Episodic Unclassified (6 sources) Preoperative cardiovascular examination ; Translations: [Encounter for preprocedural cardiovascular examination] Onset: 03-30-2014 Resolved: 03-15-2015 03-15-2015 Unclassified (1 source) Other mechanical complication of cardiac electrode, initial encounter; Translations: [Other mechanical complication of cardiac electrode, initial encounter] Onset: 01-20-2018 Unclassified (1 source) Other mechanical complication of other cardiac electronic device, initial encounter; Translations: [Other mechanical complication of other cardiac electronic device, initial encounter] Onset: 01-20-2018 Unclassified (1 source) Other mechanical complication of cardiac electrode, subsequent encounter; Translations: [Other mechanical complication of cardiac electrode, subsequent encounter] Onset: 12-18-2017 Unclassified (1 source) Patient encounter status 08-13-2024 Results Test Name Value Interpretation Reference Range Facility Echo Completeon 02-21-2025 Echo Complete [facility] [address] [place] [address] Echo Complete 02/21/25 0858 MR#: [id number] Acct: [id number] Name: CHRISTY HUNT Rep #: [id number] : 1955 69 From: Seamus Crews MD Attending Dr: Dr. Seamus Crews MD Status: [place] Ordering Dr: Seamus Crews MD Date: 02/21/25 Location: [facility] Sex: F C Admitted: Reason For Study : Dilated CMP Procedure This was a 2D Doppler, Color Flow transthoracic echocardiogram. Exam performed in department. Left Ventricle Normal LV size. Left ventricular systolic function is normal. The left ventricular ejection fraction is 50 %. No regional wall motion abnormalities noted. Right Ventricle Normal RV size. ICD or pacer leads identified within the right ventricle. Small mobile echogenic structure seen near the pacemaker leads. Normal systolic function. Atria Normal left atrium. Normal right atrium. Mitral Valve Normal mitral valve. Systolic anterior motion of the mitral valve. Mild (1+) eccentric mitral valve insufficiency. Tricuspid Valve Normal tricuspid valve. Mild (1+) tricuspid valve insufficiency. Pulmonary artery systolic pressure is 26 mmHg. Aortic Valve Trisinus/trileaflet aortic valve. Pulmonic Valve Normal pulmonic valve. Great Vessels Normal aortic root. The pulmonary artery is normal size. Inferior vena cava collapse with respiration. Pericardium/Pleural No pericardial effusion. MMode/2D Measurements Calculations LVIDd: 4.9 cm IVSd: 1.6 cm Ao root diam: 2.8 cm LVIDs: 3.7 cm LVPWd: 1.1 cm RVDd: 3.0 cm FS: 24.5 % LAV(MOD-bp): 25.4 ml LVAd ap4: 19.6 cm2 LVAd ap2: 21.1 cm2 LAV(MOD-bp) Indexed: 15.9 ml/m2 LVLd ap4: 6.9 cm LVLd ap2: 7.2 cm LAV(MOD-sp2): 21.5 ml EDV(MOD-sp4): 48.6 ml EDV(MOD-sp2): 52.9 ml LAV(MOD-sp4): 25.8 ml EDV(sp4-el): 47.0 ml EDV(sp2-el): 52.7 ml LVAs ap4: 13.3 cm2 LVAs ap2: 14.4 cm2 LVLs ap4: 6.2 cm LVLs ap2: 6.8 cm ESV(MOD-sp4): 27.9 ml ESV(MOD-sp2): 26.2 ml ESV(sp4-el): 24.2 ml ESV(sp2-el): 25.8 ml EF(MOD-sp4): 42.5 % EF(MOD-sp2): 50.4 % EF(sp4-el): 48.5 % SV(MOD-sp4): 20.6 ml SV(MOD-sp2): 26.7 ml SV(sp4-el): 22.8 ml SI(MOD-sp4): 12.9 ml/m2 SI(MOD-sp2): 16.6 ml/m2 LA A4 area: 12.9 cm2 LA dimension(2D): 3.1 cm RA A4 area: 14.3 cm2 TAPSE: 1.4 cm Time Measurements MV dec time: 0.21 sec Doppler Measurements Calculations MV E max zulma: 45.0 cm/sec Lat Peak E' Zulma: 5.3 cm/sec Med Peak E' Zulma: 3.6 cm/sec MV A max zulma: 79.2 cm/sec E/E' lat: 8.5 E/E' med: 12.6 MV E/A: 0.57 Ao V2 max: 124.9 cm/sec LV V1 max: 81.7 cm/sec MV dec slope: 215.1 cm/sec2 Ao max P.2 mmHg LV V1 max P.7 mmHg Ao V2 mean: 86.0 cm/sec LV V1 mean P.4 mmHg Ao mean P.3 mmHg LV V1 mean: 54.6 cm/sec Ao V2 VTI: 26.5 cm LV V1 VTI: 16.9 cm AV (velocity ratio): 0.64 PA V2 max: 66.7 cm/sec TR max zulma: 235.3 cm/sec TR max P.2 mmHg ECHO/Echo Complete Interpretation Summary Normal LV size. Left ventricular systolic function is normal. ICD or pacer leads identified within the right ventricle. The left ventricular ejection fraction is 50 %. Small mobile echogenic structure seen near the pacemaker leads. Ordering Physician: Seamus Crews Referring Physician: MD Tia Rivera Performed By: Thalia Ferris [facility] 02/21/25 1102 Date Seamus Crews MD CC: Dr. Seamus Crews MD; Dr. Tia Rivera MD Date Dictated: 02/21/25 0858 Date Transcribed: 02/21/25 1051 Personal Health Coach: Signed Normal [facility] Echo Completeon 11-21-2024 Echo Complete [facility] [address] [place] [address] Echo Complete 11/21/24 0907 MR#: [id number] Acct: [id number] Name: CHRISTY HUNT Rep #: [id number] : 1955 69 From: Seamus Crews MD Attending Dr: ELSA Vides Status: REG CLI Ordering Dr: Bhavna Dawson PA Date: 11/03 03/30 Location: CVS Sex: F C Admitted: Reason For Study Reason For Study: Dilated Cardiomyopathy Procedure This was a 2D Doppler, Color Flow transthoracic echocardiogram. Exam performed in department. Left Ventricle Normal LV size. Sigmoid septum. Left ventricular systolic function is normal. The left ventricular ejection fraction is 50 %. Stage 1 diastolic dysfunction. Apical wall motion abnormality may reflect pacemaker activation. Right Ventricle Normal RV size. ICD or pacer leads identified within the right ventricle. Normal systolic function. Atria Normal left atrium. Normal right atrium. ICD or pacer leads identified within the right atrium. Echogenic mobile mass noted in right atrium possibly Chiari network but cannot exclude mobile thrombus. Does not appear to be directly attached to the pacemaker leads. Tricuspid Valve Normal tricuspid valve. Mild (1+) tricuspid valve insufficiency. Pulmonary artery systolic pressure is 28 mmHg. Aortic Valve Trisinus/trileaflet aortic valve. Pulmonic Valve Normal pulmonic valve. Great Vessels Normal aortic root. The pulmonary artery is normal size. Inferior vena cava collapse with respiration. Pericardium/Pleural No pericardial effusion. MMode/2D Measurements Calculations LVIDd: 4.2 cm IVSd: 1.7 cm LVOT diam: 2.0 cm LVIDs: 2.7 cm LVPWd: 1.1 cm LVOT area: 3.1 cm2 RVDd: 3.0 cm FS: 34.3 % Ao root diam: 3.2 cm LAV(MOD-bp): 39.4 ml LVAd ap4: 20.1 cm2 LAV(MOD-bp) Indexed: 25.1 ml/m2 LVLd ap4: 6.9 cm LAV(MOD-sp2): 26.2 ml EDV(MOD-sp4): 52.3 ml LAV(MOD-sp4): 44.8 ml EDV(sp4-el): 49.8 ml LVAs ap4: 14.3 cm2 LVLs ap4: 6.1 cm ESV(MOD-sp4): 31.1 ml ESV(sp4-el): 28.6 ml EF(MOD-sp4): 40.5 % EF(sp4-el): 42.6 % SV(MOD-sp4): 21.2 ml SV(MOD-sp2): 31.0 ml LVAd ap2: 21.0 cm2 LVLd ap2: 7.0 cm SI(MOD-sp4): 13.5 ml/m2 SI(MOD-sp2): 19.7 ml/m2 EDV(MOD-sp2): 54.1 ml EDV(sp2-el): 53.0 ml LVAs ap2: 12.7 cm2 LVLs ap2: 6.6 cm ESV(MOD-sp2): 23.1 ml ESV(sp2-el): 20.7 ml EF(MOD-sp2): 57.3 % SV(sp4-el): 21.2 ml LA A4 area: 17.8 cm2 LA dimension(2D): 3.1 cm TAPSE: 1.4 cm RA A4 area: 13.8 cm2 Time Measurements MV dec time: 0.26 sec Doppler Measurements Calculations MV E max zulma: 50.3 cm/sec Lat Peak E' Zulma: 7.1 cm/sec Med Peak E' Zulma: 4.3 cm/sec MV A max zulma: 72.0 cm/sec E/E' lat: 7.1 E/E' med: 11.8 MV E/A: 0.70 MV dec slope: 191.0 cm/sec2 Ao V2 max: 117.2 cm/sec LV V1 max: 86.2 cm/sec Ao max P.5 mmHg LV V1 max P.0 mmHg Ao V2 mean: 79.5 cm/sec LV V1 mean P.4 mmHg Ao mean P.8 mmHg LV V1 mean: 54.7 cm/sec Ao V2 VTI: 24.3 cm LV V1 VTI: 18.6 cm AV (velocity ratio): 0.77 IVET(I,D): 2.4 cm2 IVET(V,D): 2.3 cm2 SV(LVOT): 57.3 ml PA V2 max: 60.1 cm/sec TR max zulma: 246.9 cm/sec TR max P.4 mmHg ECHO/Echo Complete Interpretation Summary Normal LV size. Left ventricular systolic function is normal. The left ventricular ejection fraction is 50 %. Stage 1 diastolic dysfunction. Pulmonary artery systolic pressure is 28 mmHg. Echogenic mobile mass noted in right atrium possibly Chiari network but cannot exclude mobile thrombus. Does not appear to be directly attached to the pacemaker leads. Ordering Physician: Bhavna Dawson Referring Physician: MD Tia Rivera Performed By: Thalia Ferris RDCS 11/21/24 1524 Date Seamus Crews MD CC: Dr. Tia Rivera MD; ELSA Vides Date Dictated: 11/21/24 0907 Date Transcribed: 11/21/24 1524 Personal Health Coach: Signed Normal [facility] Pacemaker Checkon 10-26-2024 Pacemaker Check [facility] [address] [place] [address]. [address] [place] [address] Pacemaker Check Date of Service: 10/26/241655 MR#: [id number] Acct: [id number] Name: CHRISTY HUNT Rep #: [id number] : 1955 From: Zhanna Alvarado Age/Sex: 69/F [place] [facility] [place]: Signed Billing Codes ICD Device Billin ICD Dev Prog Eval, Multi Assessment and Plan Assessment and Plan (1) Presence of biventricular automatic implantable cardioverter defibrillator: Status: Chronic Comment: Implanted 05/2008, Gen Change 04/2014, Lead Revision 01/20/18 The patient denies any syncope or near syncope per device is nearing NAUPAM. 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 (3) Nonsustained ventricular tachycardia: Status: Chronic (4) LBBB (left bundle branch block): Status: Chronic 10/26/24 1657 Date Zhanna Swanson Signature: Date (if applicable) CC: Normal [facility] Bilirubin directOrdered By: Bhavna Dawson on 08-29-2024 Bilirubin.direct [Mass/Vol] 0.12 mg/dL 0.00-0.30 [facility] Bilirubin, totalOrdered By: Bhavna Dawson on 08-29-2024 Bilirubin [Mass/Vol] 0.30 mg/dL 0.20-1.00 [facility] Comment on above: For patients on eltr ombopag therapy, use of Dimension [place] TBIL is not recommended. Cardiology Visit Reporton Cardiology Visit Report [facility] [address] [place] [address] OFFICE VISIT Date of Service: 08/29/24 MR#: [id number] Acct: [id number] Name: CHRISTY HUNT Rep #: [id number] : 1955 Provider: ELSA Goodman Age/Sex: 69/F Location: [facility] [place] Status: Signed HPI HPI History of Present Illness Details: Christy Hunt is a 69-year-old female that presents here today for a follow-up office visit. She has a history of single-vessel ostial LAD, ischemic cardiomyopathy, status post ICD implantation who underwent ICD revision in January of 2018 with a biventricular upgrade. The patient initially presented with an ejection fraction in the 18% range related to a nonischemic presumed viral cardiac. She was evaluated at [facility] and received S[employer]OL COMM[employer]IONER-D implant. Echocardiogram from 2019 demonstrated and improved EF of 53%. She underwent a generator change out in 10/2023. From a cardiac standpoint, patient is doing well. She does not have any chest discomfort/heaviness/ti ghtness. Her exercise tolerance is stable for her age. She does not have any worsening symptoms of shortness of breath. She does not have any orthopnea. She denies PND. She does not have any symptoms of congestive heart failure. She does not have any palpitations that she is aware of. She does not have any lightheadedness or dizziness. She does not have any near- syncope or syncope. She does not have any lower extremity edema. She does not have any symptoms of claudication. Intake Vital Signs 02/29/24 10:35 08/29/24 08:48 Height 5 ft 1 in 5 ft 1 in Weight: 136 lb BMI 25.7 BP 146/84 H Blood Pressure Location Lt brachial Position Sitting Respiration 18 Pulse 78 Pulse Source Monitor Pulse Oximetry (%) 99 Intake Visit Reasons: 6 M FU/ Sees Odilia @ 10:30 Lost And Found Clerk Required: No Is patient in pain?: No Allergies rosuvastatin calcium (From Crestor) Allergy (Verified 08/29/24 10:02) Unknown sumatriptan (From Imitrex) Allergy (Verified 08/29/24 10:02) Unknown sumatriptan succinate (From Imitrex) Allergy (Verified 08/29/24 10:02) Unknown Medications ???Medication ???Instructions ???Recorded ???Confirmed ???Type nitroglycerin 0.4 mg sublingual 0.4 mg sublingual Q5M PRN Chest 08/29/24 History tablet Pain loratadine 10 mg tablet (Claritin) 10 mg PO QDAY PRN allergies 03/2308/29/24 History amlodipine 2.5 mg tablet 2.5 mg PO DAILY #90 tabs 04/19/24 08/29/24 Rx ezetimibe 10 mg tablet (Zetia) 10 mg PO DAILY #90 tabs 08/09/24 0 08/29/24 Rx lisinopril 20 mg tablet 20 mg PO BID #180 tabs 08/09/24 Rx carvedilol 25 mg tablet 25 mg PO BID #180 tabs 08/22/24 Rx Ejection fraction %: 53 Have you fallen in the past year?: No PFSH Medical History Nonsustained ventricular tachycardia Essential (primary) hypertension Neurocardiogenic syncope Hyperlipidemia Atherosclerotic heart disease of [place] coronary artery without angina pectoris LBBB (left bundle branch block) Presence of biventricular automatic implantable cardioverter defibrillator (01/20/18) Non-ischemic cardiomyopathy Surgical History History of electrophysiologic study (03/2007) History of back surgery History of carpal tunnel surgery Presence of biventricular implantable cardioverter-defibrilla tor (ICD) (05/24/08) Family History Brother Hypertension Brother Hypertension Brother CAD (coronary artery disease) Hypertension CVA (cerebral vascular accident) Sister Hypertension HLD (hyperlipidemia) Sister Hypertension Sister Hypertension Brother Cancer Lung cancer Social History household members: spouse Smoking Status: Current every day smoker tobacco type: cigarettes alcohol intake: never substance use type: does not use diet: low salt caffeine: Yes (5-7 servings per day) Type: coffee what type of physical activity do you participate in: none seatbelt use: always do you feel safe at home: Yes ROS Const Const: Negative for fatigue, body ache, fever(s), chills, night sweats, daytime sleepiness, difficulty sleeping, excessive sweating, weight gain, weight loss, increased appetite, poor appetite, anorexia or other ENT ENT: Negative for dizziness or balance problems Cardio Chest Pain: No Palpitations: No Edema: None Muscle aches with walking: None Resp Respiratory: Negative for SOB with activity, SOB at rest, SOB orthopnea SOB lying down or Cough Musc Musc: Negative for muscle aches/ myalgia, muscle weakness, joint pain or balance proble (more content not included)... Normal [facility] High density lipoprotein (HD L) measurementOrdered By: Bhavna Dawson on 08-29-2024 Cholesterol in HDL [Mass/Vol] 61 mg/dL >40 [facility] Comment on above: The drugs N-Acetylcy steine and Metamizole may falsely depress this assay. Reference Range HDL <40 mg/dL Low HDL Cholesterol HDL >or= 60 mg/dL High HDL Cholesterol Laboratory - Chemistry and C hemistry - challengeOrdered By: Bhavna Dawson on 08-29-2024 AST [Catalytic activity/Vol] 18 U/L 15-37 [facility] Lipid Profileon 08-29-2024 Cholesterol [Mass/Vol] 240 mg/dL High 200 [facility] Comment on above: Result Comment: <200 mg/dL Desirable 200-240 mg/dL Borderline >240 mg/dL High Risk Performed By: #### L 500.4100, L500.3400 #### [facility] [address] [place], [address] Cholesterol in HDL [Mass/Vol] 61 mg/dL Normal [facility] Comment on above: Result Comment: The drugs N-Acetylcysteine and Metamizole may falsely depress this assay. Reference Range HDL <40 mg/dL Low HDL Cholesterol HDL >or= 60 mg/dL High HDL Cholesterol Performed By: #### L 500.4100, L500.3400 #### [facility] [address] [place], [address] Cholesterol in LDL [Mass/Vol] 157 mg/dL High 0-130 [facility] Comment on above: Performed By: #### L 500.4100, L500.3400 #### [facility] [address] [place], [address] Cholesterol in VLDL [Mass/Vol] 22 mg/dL Normal 5-40 [facility] Comment on above: Performed By: #### L 500.4100, L500.3400 #### [facility] [address] [place], [address] Triglyceride [Mass/Vol] 109 mg/dL Normal [facility] Comment on above: Result Comment: The drugs N-Acetylcysteine and Metamizole may falsely depress this assay. Serum Triglycerides Reference Interval Normal <150 mg/dL Borderline high 150 - 199 mg/dL High 200 - 499 mg/dL Very High > or = 500 mg/dL Performed By: #### L 500.4100, L500.3400 #### [facility] [address] [place], [address] Liver Profileon 08-29-2024 Albumin [Mass/Vol] 3.4 g/dL Normal 3.2-5.0 [facility] Comment on above: Performed By: #### L 500.4100, L500.3400 #### [facility] [address] [place], [address] ALK P 61 U/L Normal 45-117 [facility] Comment on above: Performed By: #### L 500.4100, L500.3400 #### [facility] [address] [place], [address] ALT [Catalytic activity/Vol] 24 U/L Normal 13-56 [facility] Comment on above: Performed By: #### L 500.4100, L500.3400 #### [facility] [address] [place], [address] AST [Catalytic activity/Vol] 18 U/L Normal 15-37 [facility] Comment on above: Performed By: #### L 500.4100, L500.3400 #### [facility] [address] [place], [address] Bilirubin [Mass/Vol] 0.30 mg/dL Normal 0.20-1.00 [facility] Comment on above: Result Comment: For patients on eltrombopag therapy, use of Dimension [place] TBIL is not recommended. Performed By: #### L 500.4100, L500.3400 #### [facility] [address] [place], [address] Bilirubin.direct [Mass/Vol] 0.12 mg/dL Normal 0.00-0.30 [facility] Comment on above: Performed By: #### L 500.4100, L500.3400 #### [facility] [address] [place], [address] Globulin (S) [Mass/Vol] 3.3 g/dL Normal 2.2-4.2 [facility] Comment on above: Performed By: #### L 500.4100, L500.3400 #### [facility] [address] [place], [address] T PROT 6.7 g/dL Normal 6.4-8.2 [facility] Comment on above: Performed By: #### L 500.4100, L500.3400 #### [facility] [address] [place], [address] Low density lipoprotein (LDL ) cholesterol measurementOrdered By: Bhavna Dawson on 08-29-2024 Cholesterol in LDL [Mass/Vol] 157 mg/dL High 0-130 [facility] Pacemaker Checkon 08-29-2024 Pacemaker Check [facility] 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 (2) Nonsustained ventricular tachycardia: Status: Chronic (3) LBBB (left bundle branch block): Status: Chronic (4) Presence of biventricular automatic implantable cardioverter defibrillator: Status: Chronic Comment: Implanted 05/2008, Gen Change 04/2014, Lead Revision 01/20/18 The patient denies any syncope or near syncope per device is nearing ANUPAM. 08/29/24 1536 Date Zhanna Swanson Signature: Date (if applicable) CC: Normal [facility] Serum globulin measurementOr dered By: Bhavna Dawson on 08-29-2024 Globulin (S) [Mass/Vol] 3.3 g/dL 2.2-4.2 [facility] Serum or plasma alanine leslie otransferase (ALT) measurementOrdered By: Bhavna Dawson on 08-29-2024 ALT [Catalytic activity/Vol] 24 U/L 13-56 [facility] Serum or plasma albumin orestes urement (mass/volume)Ordered By: Bhavna Dawson on 08-29-2024 Albumin [Mass/Vol] 3.4 g/dL 3.2-5.0 [facility] Serum or plasma alkaline cruz sphatase measurementOrdered By: Bhavna Dawson on 08-29-2024 ALP [Catalytic activity/Vol] 61 U/L 45-117 [facility] Serum or plasma cholesterol measurement (mass/volume)Ordered By: Bhavna Dawson on 08-29-2024 Cholesterol [Mass/Vol] 240 mg/dL High <200 [facility] Comment on above: <200 mg/dL Desirable 200-240 mg/dL Borderline >240 mg/dL High Risk Total proteinOrdered By: Cristóbal Dawson on 08-29-2024 Protein [Mass/Vol] 6.7 g/dL 6.4-8.2 [facility] Triglycerides measurementOrd ered By: Bhavna Dawson on 08-29-2024 Triglyceride [Mass/Vol] 109 mg/dL <199 [facility] Comment on above: The drugs N-Acetylcy steine and Metamizole may falsely depress this assay.Serum Triglycerides Reference Interval Normal <150 mg/dL Borderline high 150 - 199 mg/dL High 200 - 499 mg/dL Very High > or = 500 mg/dL Very low density lipoprotein (VLDL) cholesterol measurementOrdered By: Bhavna Dawson on 08-29-2024 VLDL Cholesterol 22 mg/dL 5-40 [facility] CNOVon 06-08-2024 CNOV Office Visit (FAMPWS ) MARILEECHRISTY ([id number]) 1955 F Date Time Provider Department 06/08/24 9:40 AM LIZETH SMITH [facility] During your visit today, we recorded the following information about you: Pulse Respiration Blood pressure Weight 76/minute 16/minute 158/80 63.1 kg Height 1.52 m Lizeth Smith APRN.SOFTWARE ENGINEERING MANAGER 06/08/2024 12:55 PM Signed Christy Hunt is a 68 year old female here for a Medicare wellness visit. Medicare Health Risk Assessment General Health Good Exercise: Minutes/Day 10 min Exercise: Days/Week 5 days Alcohol: Daily Use Never Alcohol: Drinks/Day Patient does not drink Alcohol: 6 or more drinks Never Feel off balance No Concerns: Teeth/Dentures No Concerns: Sexual function No Troubled by feelings None of the above Frequency: Eating healthy diet Several days ADLs requiring help None of the above Safety precautions in home/vehicle Yes Smoke, vape, chews tobacco Yes, but I'm not ready to quit Difficulty hearing No Difficulty seeing No Current Providers Specialists: I have reviewed specialist-related care of the patient in the medical record. Cardiology: Dr. Crews, every 6 months Medical/Family history review Reviewed and updated problem list, medical/surgical/family /social history, medications, and allergies. Opioid use review Opioid Medications (last 90 days) No data to display Anxiety/Depression screening PHQ-9 Score: 0. JAVI-7 Score: 0. Recommendation: no further intervention at this time Cognitive screening Mini Cog Score: 1 Cognitive screening reviewed and Recommended referral for further evaluation (score 0-2). Denies wanting further work up for memory. Refers that her memory is good. Functional Observation Was the patient's Timed Up AND Go test unsteady or >= 12 seconds? No Advance Care Planning Patient did not wish or was not able to name a surrogate decision maker or provide an advance care plan Measurements BP 158/80 Pulse 76 Resp 16 Ht 152 cm (4' 11.84) Wt 63.1 kg (139 lb 1.8 oz) SpO2 100% BMI 27.31 kg/m? Vision Screening: Follows with optometry/ophthalmology Assessment/Plan Medicare annual wellness visit, subsequent (Z00.00) - Counseled on healthy diet and regular exercise - Fall avoidance information provided - Personalized prevention plan provided - Smoking cessation encouraged; discussed risks to health and quitting strategies. Patient is not ready to quit This is a 68 year old female who presents today with: Patient presents with: Medicare Wellness Exam HISTORY OF PRESENT ILLNESS: Christy Hunt is a 68 year old female. Patient presents with: Medicare Wellness Exam Here in the office for extensive exam. Smokes less than half ppd. HTN/Cardiomyopathy: Taking Lisinopril 20 mg BID, Norvasc 5 mg daily and Coreg 25 mg BID. No chest pain, dizziness, or SOB. Follows with Dr. Crews, thread cutter tender twice a year. Pacemaker in place. Lipid: taking Zetia 10 mg daily. Trying to watch diet and stay active. Back: had surgery done in Jun 2021 at [facility]. No limitations. Symptoms stable, will have balance difficulty if sitting too long. She has spinal stenosis and DDD. Colonoscopy: 2005 last completed. Does not want screening at this time. Mammogram: 2011 last completed, denies wanting any further screening. Pap: 2011, Normal, HPV negative. Denies wanting any further screening. Vaccines: Denies wanting any vaccines at this time. PAST MEDICAL HISTORY: PAST MEDICAL HISTORY Diagnosis Date Arthritis of hip 03/23/2018 R>L ASHD (arteriosclerotic heart disease) 10/02/2011 Atherosclerotic heart disease of [place] coronary artery without angina pectoris Congestive heart failure (HCC) DDD (degenerative disc disease), lumbar Dr. Alexander[facility] Essential hypertension, benign 10/02/2011 Herniated disc, cervical s/p discectomy Microscopic hematuria 10/02/2011 Nonischemic cardiomyopathy (HCC) Presence of biventricular automatic cardioverter/defibrilla tor (AICD) Presence of combination internal cardiac defibrillator (ICD) and pacemaker 03/23/20182007 PRIM CARDIOMYOPATHY NEC 04/20/2007 Pure hypercholesterolemia Tobacco use disorder 04/20/2007 Unspecified constipation PAST SURGICAL HISTORY Procedure Laterality Date B1 GRF FEM H/N INTERTRCHNTRIC/SUBTRCHN TRIC AREA NECK SURGERY BX BREAST NEEDLE CORE W/O IMAGING GUIDANCE SPX COLONOSCOPY FLX DX W/COLLJ SPEC WHEN PFRMD 07/14/2006 Colonoscopy NEUROPLASTY AND/TRANSPOS MEDIAN NRV CARPAL TUNNE PACEMAKER (PM) 05/20/2008 ICD PAST SURGICAL HISTORY OF CRYOTHERAPY PAST SURGICAL HISTORY OF 2011 Back surgery PAST SURGICAL HISTORY OF 2020 Dr. Alexander-back surgery ALLERGIES Imitrex [Sumatriptan Succinate] and Dnurybh-Qym-Sjf Reductase Inhibitors MEDICATIONS Current Outpatient Medications Medication Sig omeprazole (PRILOSEC) 20 (more content not included)... Normal [facility] Pacemaker Checkon 03-21-2024 Pacemaker Check [facility] [address] [place] [address] Pacemaker Check Date of Service: 03/21/24 1401 MR#: [id number] Acct: [id number] Name: CHRISTY HUNT Rep #: [id number] : 1955 From: Zhanna Alvarado Age/Sex: 68/F Location: [facility] [place] Status: Signed Billing Codes ICD Device Billin ICD Dev Prog Eval, Multi Assessment and Plan Assessment and Plan (1) Presence of biventricular automatic implantable cardioverter defibrillator: Status: Chronic Comment: Implanted 05/2008, Gen Change 04/2014, Lead Revision 01/20/18 The patient denies any syncope or near syncope per device is nearing ANUPAM. 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 (3) Nonsustained ventricular tachycardia: Status: Chronic (4) LBBB (left bundle branch block): Status: Chronic 03/21/24 1404 Date Zhanna Swanson Signature: Date (if applicable) CC: Normal [facility] Cardiology Visit Reporton Cardiology Visit Report [facility] [address] [place] [address] OFFICE VISIT Date of Service: 02/29/24 MR#: [id number] Acct: [id number] Name: CHRISTY HUNT Rep #: [id number] : 1955 Provider: ELSA Goodman Age/Sex: 68/F Location: [facility] [place] Status: Signed HPI HPI History of Present Illness Details: Christy Hunt is a 68-year-old female that presents here today for a follow-up office visit. She has a history of single-vessel ostial LAD, ischemic cardiomyopathy, status post ICD implantation who underwent ICD revision in January of 2018 with a biventricular upgrade. The patient initially presented with an ejection fraction in the 18% range related to a nonischemic presumed viral cardiac. She was evaluated at [facility] and received [employer]-D implant. Her left-ventricular function has completely recovered and her last evaluation I have is from 2019 her ejection fraction was 53% with stage II diastolic dysfunction. She underwent a generator change out in 10/2023. From a cardiac standpoint, patient is doing well. She does not have any chest discomfort/heaviness/ti ghtness. Her exercise tolerance is stable for her age. She does not have any worsening symptoms of shortness of breath. She does not have any orthopnea. She denies PND. She does not have any symptoms of congestive heart failure. She does not have any palpitations that she is aware of. She does not have any lightheadedness or dizziness. She does not have any near- syncope or syncope. She does not have any lower extremity edema. She does not have any symptoms of claudication. Intake Vital Signs 09/03/23 11:33 10/23/23 16:05 02/29/24 10:32 02/29/24 10:35 Height 5 ft 1 in 5 ft 1 in 5 ft 1 in 5 ft 1 in Weight: 137 lb BMI 25.9 BP 145/83 H Blood Pressure Location Lt brachial Position Sitting Respiration 18 Pulse 67 Pulse Source Monitor Pulse Oximetry (%) 100 Intake Visit Reasons: 6 M FU Lost And Found Clerk Required: No Is patient in pain?: No Allergies rosuvastatin calcium (From Crestor) Allergy (Verified 02/29/24 10:32) Unknown sumatriptan (From Imitrex) Allergy (Verified 02/29/24 10:32) Unknown sumatriptan succinate (From Imitrex) Allergy (Verified 02/29/24 10:32) Unknown Medications ???Medication ???Instructions ???Recorded ???Confirmed ???Type nitroglycerin 0.4 mg sublingual 0.4 mg sublingual Q5M PRN Chest 04/04/14 02/29/24 History tablet Pain loratadine 10 mg tablet (Claritin) 10 mg PO QDAY PRN allergies 10/12/17 02/29/24 History amlodipine 2.5 mg tablet 2.5 mg PO DAILY #90 tabs 03/02/23 02/29/24 Rx carvedilol 25 mg tablet 25 mg PO BID #180 tabs 07/29/23 02/29/24 Rx ezetimibe 10 mg tablet (Zetia) 10 mg PO DAILY #90 tabs 07/29/23 02/29/24 Rx lisinopril 20 mg tablet 20 mg PO BID #180 tabs 07/29/23 02/29/24 Rx Have you fallen in the past year?: No PFSH Medical History Nonsustained ventricular tachycardia Essential (primary) hypertension Neurocardiogenic syncope Hyperlipidemia Atherosclerotic heart disease of [place] coronary artery without angina pectoris LBBB (left bundle branch block) Presence of biventricular automatic implantable cardioverter defibrillator (01/20/18) Non-ischemic cardiomyopathy Surgical History History of electrophysiologic study (03/2007) History of back surgery History of carpal tunnel surgery Presence of biventricular implantable cardioverter-defibrilla tor (ICD) (05/24/08) Family History Brother Hypertension Brother Hypertension Brother CAD (coronary artery disease) Hypertension CVA (cerebral vascular accident) Sister Hypertension HLD (hyperlipidemia) Sister Hypertension Sister Hypertension Brother Cancer Lung cancer Social History household members: spouse Smoking Status: Current every day smoker tobacco type: cigarettes alcohol intake: never substance use type: does not use diet: low salt caffeine: Yes (5-7 servings per day) Type: coffee what type of physical activity do you participate in: none seatbelt use: always do you feel safe at home: Yes ROS Const Const: Negative for fatigue or weakness ENT ENT: Negative for dizziness or balance problems Cardio Chest Pain: No Palpitations: No Edema: None Muscle aches with walking: None Resp Respiratory: Negative for SOB with activity, SOB at rest or SOB orthopnea SOB lying down GI GI: Negative nausea, vomiting or heartburn Musc Musc: Negative for muscle weakness or balance problems Neuro Neuro: Negative for dizziness, lightheadedness, near sync (more content not included)... Normal [facility] Basophil percentageOrdered B y: Bhavna Dawson on 10-20-2023 Bilirubin [Mass/Vol] 0.40 mg/dL 0.20-1.00 [facility] Comment on above: For patients on eltr ombopag therapy, use of Dim[place] TBIL is not recommended. Cholesterol [Mass/Vol] 248 mg/dL <200 [facility] Comment on above: <200 mg/dL Desirable 200-240 mg/dL Borderline >240 mg/dL High Risk Protein [Mass/Vol] 6.6 g/dL 6.4-8.2 [facility] Triglyceride [Mass/Vol] 91 mg/dL <199 [facility] Comment on above: The drugs N-Acetylcy steine and Metamizole may falsely depress this assay.Serum Triglycerides Reference Interval Normal <150 mg/dL Borderline high 150 - 199 mg/dL High 200 - 499 mg/dL Very High > or = 500 mg/dL Direct bilirubinOrdered By: Bhavna Dawson on 10-20-2023 Bilirubin.direct [Mass/Vol] 0.12 mg/dL 0.00-0.30 [facility] Laboratory - Chemistry and C hemistry - challengeOrdered By: Bhavna Dawson on 10-20-2023 ALP [Catalytic activity/Vol] 63 U/L 45-117 [facility] ALT [Catalytic activity/Vol] 24 U/L 13-56 [facility] Cholesterol in HDL [Mass/Vol] 64 mg/dL >40 [facility] Comment on above: The drugs N-Acetylcy steine and Metamizole may falsely depress this assay. Reference Range HDL <40 mg/dL Low HDL Cholesterol HDL >or= 60 mg/dL High HDL Cholesterol Cholesterol in LDL [Mass/Vol] 166 mg/dL 0-130 [facility] Globulin (S) [Mass/Vol] 3.2 g/dL 2.2-4.2 [facility] No Panel InformationOrdered By: Bhavna Dawson on 10-20-2023 VLDL Cholesterol 18 mg/dL 5-40 [facility] Thin prep Papanicolaou smear with manual screeningOrdered By: Bhavna Dawson on 10-20-2023 Thin prep Papanicolaou smear with manual screening 3.4 g/dL 3.2-5.0 [facility] Thin prep Papanicolaou smear with manual screening 20 U/L 15-37 [facility] Basophil percentageOrdered B y: Gold Marti on 10-05-2023 Hemoglobin (Bld) [Mass/Vol] 14.1 g/dL 12.0-15.0 [facility] WBC (Bld) [#/Vol] 5.3 10*3/uL 4.4-11.0 [facility] Basophil percentageOrdered B y: Seamus Crews on 10-05-2023 Basophil percentage 0-5 SEEN /hpf 0-5 [facility] Chloride [Moles/Vol] 105 mmol/L 98-107 [facility] Glucose [Mass/Vol] 71 mg/dL 74-106 [facility] Potassium [Moles/Vol] 4.1 mmol/L 3.5-5.[address] [facility] Sodium [Moles/Vol] 137 mmol/L 136-145 [facility] Bilirubin Test strip Ql (U)O rdered By: Seamus Crews on 10-05-2023 Bilirubin Ql (U) Negative Negative [facility] Determination of erythrocyte mean corpuscular volume (MCV)Ordered By: Gold Marti on 10-05-2023 MCV (RBC) [Entitic vol] 88.0 fL 81-99 [facility] Erythrocyte distribution wid th ratioOrdered By: Gold Marti on 10-05-2023 Erythrocyte distribution width (RBC) [Ratio] 13.7 % 11.6-14.6 [facility] Erythrocyte distribution wid th standard deviationOrdered By: Gold Marti on 10-05-2023 Erythrocyte distribution width (RBC) [Entitic vol] 43.9 fL 35.1-43.9 [facility] Hematocrit Auto (Bld) [Volum e fraction]Ordered By: Gold Marti on 10-05-2023 Hematocrit (Bld) [Volume fraction] 44.1 % 37-47 [facility] Ketones Test strip Ql (U)Ord ered By: Seamus Crews on 10-05-2023 Ketones Ql (U) Negative Negative [facility] Laboratory - Chemistry and C hemistry - challengeOrdered By: Seamus Crews on 10-05-2023 CO2 [Moles/Vol] 28.0 mmol/L 21.0-32.0 [facility] Urea nitrogen/Creatinine [Mass ratio] 21.9 mg/mg 10-20 [facility] Laboratory - CoagulationOrde red By: Seamus Crews on 10-05-2023 INR Coag (Bld) [Relative time] 1.1 {INR} [facility] PT Coag (PPP) [Time] 14.1 s 11.7-14.9 [facility] Laboratory - Hematology and Cell countsOrdered By: Gold Marti on 10-05-2023 MCH (RBC) [Entitic mass] 28.1 pg 27.0-32.0 [facility] MCHC (RBC) [Mass/Vol] 32.0 g/dL 32-[address] [facility] Platelet mean volume (Bld) [Entitic vol] 11.2 fL 6.2-12.0 [facility] Platelets (Bld) [#/Vol] 149 10*3/uL 150-450 [facility] Mucus LM Ql (Urine sed)Order ed By: Seamus Crews on 10-05-2023 Mucus Ql (Urine sed) 0 SEEN /hpf [facility] Nitrite Test strip Ql (U)Ord ered By: Seamus Crews on 10-05-2023 Nitrite Ql (U) Negative Negative [facility] No Panel InformationOrdered By: Seamus Crews on 10-05-2023 Estimated GFR (MDRD) Amer 101 mL/min >60 [facility] Comment on above: GFR Calc Estimated GFR (MDRD) Non-Af Amer 84 mL/min >60 [facility] Comment on above: Non- GFR Calc Urine RBC 5-10 SEEN /hpf 0-5 [facility] Protein Test strip Ql (U)Ord ered By: Seamus Crews on 10-05-2023 Protein Ql (U) Negative Negative [facility] RBC Auto (Bld) [#/Vol]Ordere d By: Gold Marti on 10-05-2023 RBC (Bld) [#/Vol] 5.01 10*6/uL 4.2-5.4 [facility] Serum or plasma calcium orestes urement (mass/volume)Ordered By: Seamus Crews on 10-05-2023 Calcium [Mass/Vol] 9.0 mg/dL 8.5-10.1 [facility] Serum or plasma creatinine m easurement (mass/volume)Ordered By: Seamus Crews on 10-05-2023 Creatinine [Mass/Vol] 0.73 mg/dL 0.55-1.[address] [facility] Comment on above: The validity of the calculated GFR & GFRAA in patients over 70 years has not been determined. Clinical correlation is essential. Serum or plasma urea nitroge n measurement (mass/volume)Ordered By: Seamus Crews on 10-05-2023 Urea nitrogen [Mass/Vol] 16 mg/dL 7-18 [facility] Squamous epithelial cells de tection in urine sediment by light microscopyOrdered By: Seamus Crews on 10-05-2023 Epithelial cells.squamous LM Ql (Urine sed) 0-5 SEEN /hpf 5-10 [facility] Thin prep Papanicolaou smear with manual screeningOrdered By: Seamus Crews on 10-05-2023 Thin prep Papanicolaou smear with manual screening 4 5-15 [facility] Urine blood detectionOrdered By: Seamus Crews on 10-05-2023 RBC Ql (U) 150 /ul Negative [facility] Urine clarityOrdered By: Reed Crews on 10-05-2023 Clarity (U) Sl. Cloudy Clear [facility] Urine color determinationOrd ered By: Seamus Crews on 10-05-2023 Color (U) Yellow Yellow [facility] Urine glucose detectionOrder ed By: Seamus Crews on 10-05-2023 Glucose Ql (U) Normal mg/dl Normal [facility] Urine leukocyte esterase det ection by dipstickOrdered By: Seamus Crews on 10-05-2023 Leukocyte esterase Test strip Ql (U) Negative Negative [facility] Urine pHOrdered By: Matheus on 10-05-2023 pH (U) 6.5 [pH] 5.0 - 8.0 [facility] Urine sediment bacteria coun t by microscopy (number/high power field)Ordered By: Seamus Crews on 10-05-2023 Bacteria LM.HPF (Urine sed) [#/Area] 0 /[HPF] None Seen [facility] Urine specific gravity measu rementOrdered By: Seamus Crews on 10-05-2023 Specific gravity (U) [Rel density] 1.010 1.002-1.030 [facility] Urine urobilinogen measureme ntOrdered By: Seamus Crews on 10-05-2023 Urobilinogen Ql (U) Normal mg/dl Normal [facility] US ABD RIGHT UPPER QUADRANTo n 05-04-2023 [facility] Basophil percentageOrdered B y: Bhavna Dawson on 03-02-2023 Bilirubin [Mass/Vol] 0.40 mg/dL 0.20-1.00 [facility] Comment on above: For patients on eltr ombopag therapy, use of Dim[place] TBIL is not recommended. Chloride [Moles/Vol] 100 mmol/L 98-107 [facility] Cholesterol [Mass/Vol] 251 mg/dL <200 [facility] Comment on above: <200 mg/dL Desirable 200-240 mg/dL Borderline >240 mg/dL High Risk Glucose [Mass/Vol] 110 mg/dL 74-106 [facility] Comment on above: Fasting Glucose resu lt from 100 to 125 mg/dL suggests IMPAIRED HOMEOSTASIS per A.D.A. criteria. Potassium [Moles/Vol] 4.7 mmol/L 3.5-5.[address] [facility] Protein [Mass/Vol] 7.3 g/dL 6.4-8.2 [facility] Sodium [Moles/Vol] 132 mmol/L 136-145 [facility] Triglyceride [Mass/Vol] 112 mg/dL <199 [facility] Comment on above: The drugs N-Acetylcy steine and Metamizole may falsely depress this assay.Serum Triglycerides Reference Interval Normal <150 mg/dL Borderline high 150 - 199 mg/dL High 200 - 499 mg/dL Very High > or = 500 mg/dL Laboratory - Chemistry and C hemistry - challengeOrdered By: Bhavna Dawson on 03-02-2023 ALP [Catalytic activity/Vol] 56 U/L 45-117 [facility] ALT [Catalytic activity/Vol] 29 U/L 13-56 [facility] CO2 [Moles/Vol] 28.0 mmol/L 21.0-32.0 [facility] Globulin (S) [Mass/Vol] 3.4 g/dL 2.2-4.2 [facility] Urea nitrogen/Creatinine [Mass ratio] 20.1 mg/mg 10-20 [facility] No Panel InformationOrdered By: Bhavna Dawson on 03-02-2023 Estimated GFR (MDRD) Amer 99 mL/min >60 [facility] Comment on above: GFR Calc Estimated GFR (MDRD) Non-Af Amer 82 mL/min >60 [facility] Comment on above: Non- GFR Calc Serum or plasma albumin orestes urement (mass/volume)Ordered By: Bhavna Dawson on 03-02-2023 Albumin [Mass/Vol] 3.9 g/dL 3.2-5.0 [facility] Serum or plasma albumin/glob ulin mass ratioOrdered By: Bhavna Dawson on 03-02-2023 Albumin/Globulin [Mass ratio] 1.1 {ratio} 0.9-2.4 [facility] Serum or plasma calcium orestes urement (mass/volume)Ordered By: Bhavna Dawson on 03-02-2023 Calcium [Mass/Vol] 9.7 mg/dL 8.5-10.1 [facility] Serum or plasma cholesterol in HDL measurement (mass/volume)Ordered By: Bhavna Dawson on 03-02-2023 Cholesterol in HDL [Mass/Vol] 64 mg/dL >40 [facility] Comment on above: The drugs N-Acetylcy steine and Metamizole may falsely depress this assay. Reference Range HDL <40 mg/dL Low HDL Cholesterol HDL >or= 60 mg/dL High HDL Cholesterol Serum or plasma cholesterol in VLDL measurement (mass/volume)Ordered By: Bhavna Dawson on 03-02-2023 Cholesterol in VLDL [Mass/Vol] 22 mg/dL 5-40 [facility] Serum or plasma creatinine m easurement (mass/volume)Ordered By: Bhavna Dawson on 03-02-2023 Creatinine [Mass/Vol] 0.75 mg/dL 0.55-1.[address] [facility] Comment on above: The validity of the calculated GFR & GFRAA in patients over 70 years has not been determined. Clinical correlation is essential. Serum or plasma low density lipoprotein (LDL) cholesterol measurement (mass/volume)Ordered By: Bhavna Dawson on 03-02-2023 Cholesterol in LDL [Mass/Vol] 165 mg/dL 0-130 [facility] Serum or plasma urea nitroge n measurement (mass/volume)Ordered By: Bhavna Dawson on 03-02-2023 Urea nitrogen [Mass/Vol] 15 mg/dL 7-18 [facility] Thin prep Papanicolaou smear with manual screeningOrdered By: Bhavna Dawson on 03-02-2023 Thin prep Papanicolaou smear with manual screening 18 U/L 15-37 [facility] Thin prep Papanicolaou smear with manual screening 4 5-15 [facility] Basic Panelon 03-13-2018 Creatinine mass conc 0.95 mg/dL Normal 0.51-0.95 [facility] Comment on above: Performed By: #### P 8 ####[facility] [place], [place] [address] Anion gap 3 molar conc 15 mmol/L Normal 8-16 [facility] Comment on above: Performed By: #### P 8 ####[facility] [place], [place] [address] CO2 molar conc 21 mmol/L Normal 21-32 [facility] Comment on above: Performed By: #### P 8 ####[facility] [place], [place] [address] Glucose mass conc 125 mg/dL High 70-99 [facility] Comment on above: Performed By: #### P 8 ####[place] [address] Urea nitrogen mass conc 28 mg/dL High 7-18 [facility] Comment on above: Performed By: #### P 8 ####[address] [address] Calcium mass conc 9.2 mg/dL Normal 8.5-10.1 [facility] Comment on above: Performed By: #### P 8 ####[address] [address] Chloride molar conc 104 mmol/L Normal 98-107 [facility] Comment on above: Performed By: #### P 8 ####[address] [address] Potassium molar conc 4.2 mmol/L Normal 3.5-5.1 [facility] Comment on above: Performed By: #### P 8 ####[address] [address] Sodium molar conc 136 mmol/L Normal 136-145 [facility] Comment on above: Performed By: #### P 8 ####[place] [address] [facility] Troponin Ion 03-13-2018 Troponin I.cardiac mass conc ng/mL Normal 0.015-0.045 [facility] Comment on above: Performed By: #### E RTRP ####[facility] [place] [id number] ED PROV NOTEon 03-13-2018 Protein mass conc HNO ID: [id number]: JULIO Rodriguezervice: Emergency MedicineAuthor Type: PhysicianType: ED Provider NotesFiled: 03/14/2018 2:18 AMNote Text:Christy Hunt is a 62 year old female who presents after a syncopal/nearsyncopal episode. Was in [place] visiting a family member and states that shebegan to feel lightheaded and sweaty and apparently became slow torespond. Did not completely lose consciousness.. Did not fall to theground or hit her head. No vomiting. Denies any chest pain or shortnessof breath. She is asymptomatic at the time of my evaluation. Of note,she states that she had a recent increase in her dose of carvedilol. Shealso states that she had her pacemaker leads replaced a few weeks ago andat that time had a cardiac catheter as well that showed a 50% occlusion ofthe LAD but that her thread cutter tender did not stent it and wanted to manage itmedically.On exam, she is in no acute distress. lungs are clear. Heart is regularrate and rhythm with no murmurs rubs or gallops. She is alert andoriented ?3 with no focal motor or sensory deficits.Laboratory evaluation is unremarkable. EKG shows normal sinus rhythm.There are some biphasic T waves in V2 and V3 which could be consistentwith a Wellens syndrome and I do not have any prior EKGs for comparison,however she denies any chest pain at any point during this episode andjust had a cardiac catheterization which did show LAD disease but shestates was only 50% and she is actively being followed by hercardiologist. She does not want any more aggressive workup here. byhistory this sounds very consistent with a vagal episode. Discharged homewith instructions to follow up with her PCP as soon as possible. I diddiscuss her EKG results with her and that she needs to follow up with herPCP or thread cutter tender regarding this.2:12 Olga Michael MD03/14/18 0218 Normal [facility] Protein mass conc HNO ID: [id number]: Harman Maza Resice: Emergency MedicineAuthor Type: ResidentType: ED Provider NotesFiled: 03/13/2018 2:41 AMNote Text: Attberlin hinkle signed by Tone Michael MD at 03/14/2018 2:18 AMAttending NoteI evaluated the patient and personally participated in the pop components. Isupervised any procedures performed by the resident. I agree with theresident's findings and plan with the following revisions and/or additions:Please see my separately documented note.Signature: Tone Michael MDDate: 03/14/2018Time: 2:18 AM ED Provider NotePatient Name: Christy HuntMRN: [id number] DATE: 03/13/18HistoryPatient presents with:Syncope: Pt. was on [place] visiting a pt. and had a syncopal episode. PerFamily, pt. was out of it for a couple minutes. Pt. did not fall or hithead. Pt. diaphoretic upon arrival to ED. Pt. has a pacemaker and ICD inplace. Pt. states that she had a wire changed a couple of weeks ago. Pt.is AANDOx3 and alert and talking to this RN at this timeHPIThis is a 62 -year-old female presenting from labor and delivery forevaluation of near syncopal episode. Family at bedside patient appearedto be out of it for a couple minutes. The patient did not fall to theground or hit her head. Initially on arrival to the ED patient wasreported to be somewhat diaphoretic. Patient denied any nausea, vomiting,chest pain or shortness of breath now or at the time of episode. Robert had a recent change in her carvedilol medication for her dose wasdoubled. Patient states she had a wire change from her pacemaker anddefibrillator a few weeks ago and had a catheterization at that timedemonstrating a 50% occlusion of a maker artery decision was made atthe time not to do any stent but just medical therapy. Patient denies anyrecent illness, fever, chills. Back to baseline now per family.PAST MEDICAL HISTORYDiagnosis Date- ASHD (arteriosclerotic heart disease) 10/02/2011- Atherosclerotic heart disease of [place] coronary artery without anginapectoris- Congestive heart failure (HCC)- Essential hypertension, benign 10/02/2011- Microscopic hematuria 10/02/2011- Nonischemic cardiomyopathy (HCC)- Presence of biventricular automatic cardioverter/defibrilla tor (AICD)- PRIM CARDIOMYOPATHY NEC 04/20/2007- Pure hypercholesterolemia- Tobacco use disorder 04/20/2007- Unspecified constipationPAST SURGICAL HISTORYProcedure Laterality Date- BONE GRAFT FEMUR HEAD/NECK/RIDGE NECK SURGERY- BX OF BREAST; NEEDLE CORE- COLONOSCOP W/ OR W/O BRSH SPEC 07/14/2006 Colonoscopy- PACEMAKER (PM) 05/20/08 ICD- PAST SURGICAL HISTORY OF CRYOTHERAPY- REVISE MEDIAN N/CARPAL TUNNEL SURGFAMILY HISTORYProblem Relation Age of Onset- Heart Brother CAD, stents- Heart Maternal Grandmother- Heart Maternal Grandfather- Prostate Cancer Father - Cancer Paternal Grandfather small cell lung cancer- Hypertension Sister- Hypertension Sister- Hypertension Sister- Cancer Brother lung cancerSocial HistorySocial History Main Topics- Smoking status: Former Smoker Packs/day: 0.50 Years: 30.00 Types: Cigarettes Quit date: 11/19/2015- Smokeless tobacco: Never Used- Alcohol use No- Drug use: No Comment: caffiene 6-8 cups per day- Sexual activity: Yes Partners: MaleALLERGIESAllergen Reactions- Imitrex [Sumatripta*Review of SystemsAll other systems reviewed and are negative.Physical ExamBP 128/90 Pulse 82 Temp (Src) 98.1 (Oral) Resp 15 Ht 5' 1 (1.55m) Wt 135 lb (61.2kg) SpO2 98% BMI 25.52 kg/(m2).Physical ExamConstitutional: She is oriented to person, place, and time. She appearswell-developed and well-nourished. No distress.HENT:Head: Normocephalic and atraumatic.Right Ear: External ear normal.Left Ear: External ear normal.Nose: Nose normal.Mouth/Throat: Oropharynx is clear and moist.Eyes: Conjunctivae and EOM are normal. Right eye exhibits no discharge.Left eye exhibits no discharge. No scleral icterus.Neck: Normal range of motion. Neck supple. No JVD present.Cardiovascular: Normal rate, regular rhythm and normal heart sounds. Examreveals no gallop and no friction rub.No murmur heard.Pulmonary/Chest: Effort normal and breath sounds normal. No respiratorydistress. She has no wheezes. She has no rales.Abdominal: Soft. She exhibits no distension. There is no tenderness. Thereis no rebound and no guarding.Musculoskeleta l: She exhibits no edema, tenderness or deformity.Neurological: She is alert and oriented to person, place, and time.Skin: Skin is warm and dry. No rash noted. She is not diaphoretic. Noerythema. No pallor.Psychiatric: She has a normal mood and affect. Her behavior is normal.Judgment and thought content normal.Nursing note and vitals reviewed.Diagnostic TestingED Labs Ordered and ReviewedBASIC METABOLIC PANEL (AK,AV,EU,FV,HL,ALONSO,MM,S P) - Abnormal; Notable forthe following: Result Value Ref Range Glucose 125 (*) 70 - 99 mg/dL BUN 28 (*) 7 - 18 mg/dL All other components within normal limitsCBC + AUTO DIFF (AK,AV,EU,FV,HL,ALONSO,MM,S P) - Abnormal; Notable for thefollowing: Platelet Count 149 (*) 182 - 369 thou/cmm All other components within normal limitsECU TROPONIN I ([place] ED)MDRD GFRProceduresED Course / Clinical ImpressionClinical Impressions as of Mar 13 234Near syncopeThis is a 62-year-old female presenting for evaluation of near syncopalepisode.Patient arrives to emergency department diaphoretic but in no acutedistress her vitals are stable and she appears comfortable. Her initialEKG demonstrates concern for possible Wellens type a in lead V2. We donot have any old EKG to compare this to inpatient would rather not sign aconsent form for an EKG to be obtained from her primary health carefacility. Initial labs ultimately remarkable for a BUN was mildlyelevated likely demonstrating prerenal azotemia patient provided withfluids. Glucose mildly elevated at 125 her platelet count is 149.Patient does not have elevated troponin. Patient does not currently haveany other symptoms and she would rather not have further workup done atthis time and would like to follow-up with her primary doctor as needed.She also would not like her pacemaker interrogated. I discussed the EKGfinding and specific return precautions including chest pain, shortness ofbreath, nausea, vomiting, syncope and patient voiced understanding.Patient is discharged in stable condition.MDM / Disposition / PlanMDMSIGNATURE: Michelle Maza (Daria) Amarjit Fragoso03/13/18 0241Tone Michael MD03/14/18 0218 Normal [facility] EKGon 03-13-2018 Protein mass conc NAME : AMINAH HUNT ID : [id number] : 1955 Gender : FemaleRace : CaucasianORD : Procedure Date : Mar 13 2018 01:05Edit Date : Mar 22 2018 12:39 Diagnosis:Atrial-sensed ventricular-paced rhythmBiventricular pacemaker detectedNONSPECIFIC T WAVE ABNORMALITY IN ANTERIOR LEADSABNORMAL ECGNO PREVIOUS ECGS AVAILABLEConfirmed by Tone Michael ([id number]) on 03/13/2018 9:50:03 AMAlso confirmed by Tone Michael ([id number]), makeup editor SHILPA MELCHOR ([id number]) on 03/22/2018 12:39:17 PM Ventricular Rate : 78 BPMAtrial Rate : 78 BPMP-R Interval : 96 msQRS Duration : 150 msQ-T Interval : 438 msQTC Calculation(Bezet) : 499 msR [place] : 260 degreesT [place] : 156 degrees Test Reason : Location : 4 : [facility] EM Overread By : Tone MichaelEditted By : SHILPA MELCHORReferred By : ,Acquired by : Juan A Abrams Normal [facility] Hemogram/Diffon 03-13-2018 Abs Immature Grans 0.02 thou/cmm Normal 0.00-0.05 [facility] Comment on above: Performed By: #### C BCD1 ####[place] [address] Abs. Baso 0.04 thou/cmm Normal 0.01-0.08 [facility] Comment on above: Performed By: #### C BCD1 ####[place] [address] Abs. [place] 0.57 thou/cmm Normal 0.27-0.70 [facility] Comment on above: Performed By: #### C BCD1 ####[place] [address] Abs. Neut (ANC) 4.14 thou/cmm Normal 1.56-6.13 [facility] Comment on above: Performed By: #### C BCD1 ####[place] [address] Basophils/100 WBC Auto (Bld) 0.5 % Normal [facility] Comment on above: Performed By: #### C BCD1 ####[place] [address] Eosinophils Auto #/vol (Bld) 0.20 thou/cmm Normal 0.00-0.31 [facility] Comment on above: Performed By: #### C BCD1 ####[place] [address] Eosinophils/100 WBC Auto (Bld) 2.7 % Normal [facility] Comment on above: Performed By: #### C BCD1 ####[place] [address] Erythrocyte distribution width Auto Ratio (RBC) 13.2 % Normal 11.7-14.4 [facility] Comment on above: Performed By: #### C BCD1 ####[place] [address] Hematocrit Auto Volume Fraction (Bld) 39.4 % Normal 34.1-44.9 [facility] Comment on above: Performed By: #### C BCD1 ####[address] [address] Hemoglobin mass conc (Bld) 12.8 g/dL Normal 11.2-15.7 [facility] Comment on above: Performed By: #### C BCD1 ####[place] [address] Immature Grans 0.30 % Normal [facility] Comment on above: Performed By: #### C BCD1 ####[place] [address] Lymphocytes Auto #/vol (Bld) 2.36 thou/cmm Normal 1.18-3.74 [facility] Comment on above: Performed By: #### C BCD1 ####[place] [address] Lymphocytes/100 WBC Auto (Bld) 32.2 % Normal [facility] Comment on above: Performed By: #### C BCD1 ####[place] [address] MCH Auto Entitic mass (RBC) 28.4 pg Normal 25.6-32.2 [facility] Comment on above: Performed By: #### C BCD1 ####[place] [address] MCHC Auto mass conc (RBC) 32.5 % Normal 31.6-34.8 [facility] Comment on above: Performed By: #### C BCD1 ####[place] [address] MCV Auto Entitic volume (RBC) 87.6 fL Normal 79.4-94.8 [facility] Comment on above: Performed By: #### C BCD1 ####[place] [address] Monocytes/100 WBC Auto (Bld) 7.8 % Normal [facility] Comment on above: Performed By: #### C BCD1 ####[place] [address] Platelet mean volume Auto Entitic volume (Bld) 11.3 fL Normal 9.4-12.3 [facility] Comment on above: Performed By: #### C BCD1 ####[facility] [place], [place] [address] Platelets Auto #/vol (Bld) 149 thou/cmm Low 182-369 [facility] Comment on above: Performed By: #### C BCD1 ####[facility] [place], [place] [address] RBC Auto #/vol (Bld) 4.50 mil/cmm Normal 3.93-5.22 [facility] Comment on above: Performed By: #### C BCD1 ####[place] [address] RDW SD 42.5 fl Normal 36.4-46.3 [facility] Comment on above: Performed By: #### C BCD1 ####[place] [address] Seg Neutrophil 56.5 % Normal [facility] Comment on above: Performed By: #### C BCD1 ####[place] [address] WBC Auto #/vol (Bld) 7.32 thou/cmm Normal 3.98-10.04 [facility] Comment on above: Performed By: #### C BCD1 ####[place] [address] MDRD GFRon 03-13-2018 GFR/1.73 sq M predicted among non-blacks MDRD vol rate/area (S/P/Bld) 59.29 mL/min/{1.73_m2} Normal >60mL/min/1 .73m2 [facility] Comment on above: Result Comment: If t he patient is , multiply the result by 1.210. Performed By: #### G FR ####[place] [address] CBC,PLATELET,DIFFERENTIAL - CCLon 01-20-2018 Abs Baso <0.04 Normal <0.09 [facility] Comment on above: Performed By: #### C HM7, PTPTT, CBCDFC ####[facility] [place] [address], [place] [address]RcojjuRegency Hospital [facility]edo[address] [place] [address] Abs Eos 0.12 K/uL Normal <0.37 [facility] Comment on above: Performed By: #### C HM7, PTPLOGAN, CBCDFC ####[facility] [place] [address], [place] [address]HwylyyRegency Hospital [facility]edo[address] [place] [address] Abs [place] 0.37 K/uL Normal 0.24-0.86 [facility] Comment on above: Performed By: #### C HMCamila, PTPTT, CBCDFC ####[facility] [place] [address]RnqpkuRegency Hospital [facility] [place] [address] Basophils/100 WBC Auto (Bld) 0.5 % Normal [facility] Comment on above: Performed By: #### C HM7, PTPTT, CBCDFC ####[facility] [place] [address] [place], [place] [id number] [address] [place] [address] DIFFERENTIAL TYPE Electronic Differential Normal [facility] Comment on above: Performed By: #### C HM7, PTPTT, CBCDFC ####[facility] [place], [place] [address]10[facility] [place] [address] Eosinophils/100 leukocytes 2.0 % Normal [facility] Comment on above: Performed By: #### C HM7, PTPTT, CBCDFC ####[facility] [place] [address] [place], [place] [id number] [address] [place] [address] Erythrocytes (RBC) 13.2 % Normal 11.7-14.4 [facility] Comment on above: Performed By: #### C HM7, PTPTT, CBCDFC ####[facility] [place], [place] [id number] [address] [place] [address] Erythrocytes (RBC) 4.76 10*6/uL Normal 3.93-5.22 [facility] Comment on above: Performed By: #### C NADINE VILLASENOR, CBCDFC ####[facility] [place], [place] [id number] [address] [place] [address] Hematocrit (HCT) 41.9 % Normal 34.1-44.9 [facility] Comment on above: Performed By: #### C NADINE VILLASENOR, CBCDFC ####[facility] [place], [place] [id number] [address] [place] [address] Hemoglobin mass conc (Bld) 13.7 g/dL Normal 11.2-15.7 [facility] Comment on above: Performed By: #### C NADINE VILLASENOR, CBCDFC ####[facility] [place], [place] [id number] [address] [place] [address] IMMATURE GRANS % 0.3 % Normal [facility] Comment on above: Performed By: #### C NADINE VILLASENOR, CBCDFC ####[facility] [place], [place] [id number] [address] [place] [address] IMMATURE GRANS ABSOLUTE <0.04 Normal <0.[address] [facility] Comment on above: Performed By: #### C NADINE VILLASENOR, CBCDFC ####[facility] [place], [place] [id number] [address] [place] [address] Lymphocytes 1.98 10*3/uL Normal 1.18-3.74 [facility] Comment on above: Performed By: #### C JACKLYN, NADINE, CBCDFC ####[facility] [place] [address] [place], [place] [id number] [address] [place] [address] Lymphocytes/100 leukocytes 32.4 % Normal [facility] Comment on above: Performed By: #### C JACKLYN, NADINE, CBCDFC ####[facility] [place] [address] [place], [place] [id number] [address] [place] [address] MCV 88.0 fL Normal 79.4-94.8 [facility] Comment on above: Performed By: #### C JACKLYN, NADINE, CBCDFC ####[facility] [place] [address] [place], [place] [id number] [address] [place] [address]452 Mean Cell Hgb 28.8 pg Normal 25.6-32.2 [facility] Comment on above: Performed By: #### C NADINE VILLASENOR, CBCDFC ####[facility] [place] [address] [place], [place] [id number] [address] [place] [address] Mean Cell Hgb Conc 32.7 g/dL Normal 32.2-35.5 [facility] Comment on above: Performed By: #### C JACKLYN, NADINE, CBCDFC ####[facility] [place] [address] [place], [place] [id number] [address] [place] [address] Monocytes/100 leukocytes 6.1 % Normal [facility] Comment on above: Performed By: #### C JACKLYN, PTPLOGAN, CBCDFC ####[facility] [place] [address] [place], [place] [id number] [address] [place] [address] NEUTROPHIL SEGMENTED 58.7 % Normal [facility] Comment on above: Performed By: #### C HMCamila, PTPLOGAN, CBCDFC ####[facility] [facility] [address]WkiqwbRegency Hospital [facility] [place] [address] Nucleated erythrocytes 0.0 /100 WBC Normal 0.0-0.2 [facility] Comment on above: Performed By: #### C HMCamila, PTPTT, CBCDFC ####[facility] [facility] [address]PitxyiRegency Hospital [facility] [place] [address] Platelet mean volume (PMV) 11.0 fL Normal 9.4-12.3 [facility] Comment on above: Performed By: #### C HMCamila, PTPLOGAN, CBCDFC ####[facility] [facility], [place] [address]mi[address] [place], [place] [phone] [address] [place] [address] Platelets 173 10*3/uL Low 182-369 [facility] Comment on above: Performed By: #### C HMCamila, PTPLOGAN, CBCDFC ####[facility] [place], [place] [address] [place], [place] [phone] [address] [place] [address] SEGS + Bands,Absolute 3.59 K/uL Normal 1.56-6.13 [facility] Comment on above: Performed By: #### C HMCamila, PTPLOGAN, CBCDFC ####[facility] [place] [address] [place], [place] [id number] [address] [place] [address] WBC (Leukocytes) 6.11 10*3/uL Normal 3.98-10.04 [facility] Comment on above: Performed By: #### C HMCamila, PTPLOGAN, CBCDFC ####[facility] [place], [place] [id number] [address] [place] [address] CHEM 7on 01-20-2018 Anion gap 11 mmol/L Normal 7-17 [facility] Comment on above: Performed By: #### C HM7, PTPTT, CBCDFC ####[facility] [place], [place] [id number] [address] [place] [address] BUN/Creatinine Ratio 18 mg/mg Normal [facility] Comment on above: Performed By: #### C HM7, PTPTT, CBCDFC ####[facility] [place], [place] [address] [address] [place] [address]209 Chloride 100 mmol/L Normal 98-108 [facility] Comment on above: Performed By: #### C HM7, PTPTT, CBCDFC ####[facility] [place], [place] [address] [address] [place] [address]10 CO2 27 mmol/L Normal 22-30 [facility] Comment on above: Performed By: #### C HM7, PTPTT, CBCDFC ####[facility] [place], [place] [address] [address] [place] [address]67 Creatinine 0.76 mg/dL Normal 0.50-1.20 [facility] Comment on above: Performed By: #### C HM7, PTPTT, CBCDFC ####[facility] [place], [place] [address] [address] [place] [address]11 Est GFR, >60 Normal >60 [facility] Comment on above: Performed By: #### C HM7, PTPTT, CBCDFC ####[facility] [place] [address] [place], [place] [id number] [address] [place] [address]48 Est GFR,non >60 Normal >60 [facility] Comment on above: Performed By: #### C HMCamila, NADINE, CBCDFC ####[facility] [place] [address] [place], [place] [id number] [address] [place] [address]478 Glucose mass conc 93 mg/dL Normal 70-99 [facility] Comment on above: Performed By: #### C JACKLYN, PTPLOGAN, CBCDFC ####[facility] [place] [address] [place], [place] [phone] [address] [place] [address] Osmolality 282 mOsm/kg Normal 278-305 [facility] Comment on above: Performed By: #### C HMCamila, PTPLOGAN, CBCDFC ####[facility] [place], [place] [address] [address] [place] [address]84 Potassium molar conc 4.3 mmol/L Normal 3.5-5.0 [facility] Comment on above: Performed By: #### C JACKLYN, NADINE, CBCDFC ####[facility] [place], [place] [address] [address] [place] [address] 78398 Sodium 134 mmol/L Normal 133-143 [facility] Comment on above: Performed By: #### C HMCamila, PTPLOGAN, CBCDFC ####[facility] [place], [place] [address] [address] [place] [address] 21921 Urea nitrogen 14 mg/dL Normal 7-22 [facility] Comment on above: Performed By: #### C HMCamila, PTPTT, CBCDFC ####[facility] [place], [place] [address] [address] [place] [address] EP PROCEDURE - EPS/ABLATION/ DEVICEon 01-20-2018 EP PROCEDURE - EPS/ABLATION/DEVICE Successful addition of RV Single coil ICD lead via left axillary vein due to failure of preexisting RV lead Cut then capped preexisting RV lead Reinserted same ICD generator Normal RA and LV lead parameters Tyrex pouch inserted. Normal [facility] PT*PTTon 01-20-2018 INR Coag RelTime (PPP) 1.0 {INR} Normal 0.9-1.1 [facility] Comment on above: Performed By: #### C HM7, PTPLOGAN, CBCDFC ####[facility] [place], [place] [id number] [address] [place] [address] Prothrombin time (PT) Coag time (PPP) 13.5 s Normal 11.9-14.2 [facility] Comment on above: Performed By: #### C HM7, PTPTT, CBCDFC ####[facility] [place], [place] [address] [address] [place] [address] aPTT 28.8 s Normal 24.0-34.3 [facility] Comment on above: Performed By: #### C HM7, PTPTT, CBCDFC ####[facility] [place], [place] [address] [address] [place] [address] XR CHEST PA AND LATERALon XR CHEST PA AND LATERAL EXAM: XR CHEST P A AND LATERAL, 01/20/2018 16:38 PMCOMPARISON: May 24, 2008.CLINICAL INDICATIONS: Rule out Pneumothorax Following Device ImplantationRELEVANT CLINICAL HISTORY: T82.190A:Abnormal lead impedance of implantablecardioverter -defibrillator (ICD), initial encounter Please complete this Xray within 2 hours from the completion of theprocedure. Please read as a stat wet read. Please call IPR Nurse [phone] withany emergent finding such as pneumothorax.;FINDINGS: (Adequate technique)Tubes, Lines, and life support hardware:None.Lungs:The re lungs are clear. There are no pleural effusions. There is nopneumothorax.Cardiac, mediastinum, and hilum:The cardiomediastinal silhouette is within normal limits. Left anterior chestwall biventricular pacemaker/AICD, with pacer leads at the right ventricularapex, right atrium, and within the coronary sinus.Pulmonary Vessels: Normal, without PVHBones, chest wall, and soft tissues:The visualized osseous structures are unremarkable.IMPRESSION :1. No acute disease in the chest.2. Specifically, there is no pneumothorax. [facility] EP PROCEDURE - EPS/ABLATION/ DEVICEon 12-21-2017 EP PROCEDURE - EPS/ABLATION/DEVICE Patient has an biventricular ICD using a dual coil right ventricular lead. since January of 2017 on device interrogation there have been fluctuations in the RV lead impedance with primarily thelead impedance being low, but at some times it has been elevated. She was referred to evaluate the left axillary vein patency to consider adding newer RV defibrillator lead and capping the old RV lead since she has high risk for extractionVenogram showed patent left axillary venous system Recommendations:Follow up with Dr. Starks. 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 Protein mass conc yes Invalid Interpretation Code [employer] Work Phone: [phone]) Smoking cessation education (procedure) yes Invalid Interpretation Code [employer] Work Phone: [phone] Tobacco smoking status NHIS Current every day smoker Invalid Interpretation Code [facility] Work Phone: [phone] Tobacco use CPHS Current every day smoker Invalid Interpretation Code [facility] Work Phone: [phone] Office Visiton 10-08-2016 Documentation of current medications (procedure) Done Invalid Interpretation Code [facility] Work Phone: [phone] Fall risk assessment No Invalid Interpretation Code [facility] [employer] Work Phone: [phone] Protein mass conc Done Invalid Interpretation Code [facility] [employer] Work Phone: [phone] Clinical 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 10-03-2016 Left ventricular Ejection fraction 47 % Invalid Interpretation Code [facility] Work Phone: [phone] Office Visiton 09-18-2015 General cardiovascular disease 10Y risk [#] Jack.D'Agostviky N/A Invalid Interpretation Code [facility] [employer] Work Phone: [phone]) Lab Report: Basic Metabolic Profile (BMP)on 02-05-2015 Anion gap 7 mmol/L Invalid Interpretation Code 5-15 [facility] [employer] Work Phone: [phone] Anion gap 4 molar conc 7 Invalid Interpretation Code -15 [facility] [employer] Work Phone: [phone] Anion gap molar conc 7 mmol/L 5-[address] [facility] Work Phone: [phone] Calcium mass conc 8.9 mg/dL Invalid Interpretation Code 8.5-10.1 [facility] [employer] Work Phone: [phone] Chloride molar conc 97 mmol/L Low 98-107 [facility] Work Phone: [phone] CO2 27.0 mmol/L Invalid Interpretation Code 21.0-32.0 [facility] [employer] Work Phone: [phone] CO2 ppres (BldV) 27.0 mmol/L Invalid Interpretation Code 21.0-32.0 [facility] [employer] Work Phone: [phone] Creatinine mass conc 0.75 mg/dL Invalid Interpretation Code 0.55-1.20 [facility] [employer] Work Phone: [phone] eGFR (non-black) 102 mL/min/{1.73_m2} Invalid Interpretation Code >60 [facility] Work Phone: [phone] EST GFR - AA 102 mL/min Invalid Interpretation Code >60 [facility] [employer] Work Phone: [phone] GFR/1.73 sq M predicted among non-blacks MDRD vol rate/area (S/P/Bld) 84 mL/min/{1.73_m2} Invalid Interpretation Code >60 [facility] Work Phone: [phone] Glucose 137 mg/dL High 70-110 [facility] [employer] Work Phone: [phone] Glucose mass conc 137 mg/dL High 70-110 [facility] Work Phone: [phone] Potassium molar conc 3.9 mmol/L Invalid Interpretation Code 3.5-5.1 [facility] Work Phone: [phone] Sodium molar conc 131 mmol/L Low 136-145 [facility] Work Phone: [phone] Urea nitrogen mass conc 11 mg/dL Invalid Interpretation Code 7-18 [facility] Work Phone: [phone] Urea nitrogen/Creatinine mass ratio 14.7 RATIO Invalid Interpretation Code 10-20 [facility] Work Phone: [phone]) Lab Report: Magnesiumon Magnesium mass conc 2.0 mg/dL Invalid Interpretation Code 1.8-2.4 [facility] Work Phone: [phone]) Lab Report: T4 Total, Thyrox inon 02-05-2015 T4 mass conc 11.6 ug/dL Invalid Interpretation Code 4.8-13.9 [facility] Work Phone: [phone]) Lab Report: Thyroid Stim Hor radha (TSH)on 02-05-2015 Thyrotropin Qn 0.71 u[iU]/mL Invalid Interpretation Code 0.358-3.74 [facility] Work Phone: [phone]) Office Visiton 09-19-2014 cardiac risk group C Invalid Interpretation Code [facility] Work Phone: [phone] Lab Report: CBCon 03-30-2014 Erythrocyte distribution width Ratio (RBC) 44.5 fl High 35.1-43.9 [facility] Work Phone: [phone] Erythrocytes (RBC) 4.39 10*6/uL Normal 4.2-5.4 [facility] Work Phone: [phone] Hematocrit (HCT) 39.1 % Normal 37-47 [facility] Work Phone: [phone] Hematocrit Volume Fraction (Bld) 39.1 % Normal 37-47 [facility] Work Phone: [phone]) Hemoglobin mass conc (Bld) 12.9 g/dL Normal 12.0-15.0 [facility] Work Phone: [phone]) MCH 29.4 pg Normal 27.0-32.0 [facility] Work Phone: [phone]) MCH Entitic mass (RBC) 29.4 pg Normal 27.0-32.0 [facility] Work Phone: [phone]() MCHC 33.0 G/GL Normal 32-36 [facility] Work Phone: [phone]() MCHC mass conc (RBC) 33.0 G/GL Normal 32-[address] [facility] Work Phone: [phone]) MCV 89.1 fL Normal 81-99 [facility] Work Phone: [phone]) MCV Entitic volume (RBC) 89.1 fL Normal 81-99 [facility] Work Phone: [phone]) Platelet mean volume Entitic volume (Bld) 10.0 fL Normal 6.2-12.0 [facility] Work Phone: [phone]() Platelets 272 10*3/mm3 Normal 150-450 [facility] Work Phone: [phone]() Platelets #/vol (Bld) 272 10*3/mm3 Normal 150-450 [facility] Work Phone: 1() PMV by Kevin 10.0 fL Normal 6.2-12.0 [facility] Work Phone: [phone]() RBC #/vol (Bld) 4.39 10*6/uL Normal 4.2-5.4 [facility] Work Phone: 1() RDW-CA 44.5 fl High 35.1-43.9 [facility] Work Phone: 1() WBC #/vol (Bld) 5.7 10*3/uL Normal 4.4-11.0 [facility] Work Phone: ) WBC (Leukocytes) 5.7 10*3/uL Normal 4.4-11.0 [facility] Work Phone: [phone] Lab Report: PT03-30-2014 INR Coag RelTime (PPP) 1.0 {INR} Normal [facility] Work Phone: [phone] INR in blood by coagulation 1.0 {INR} Normal [facility] Work Phone: [phone] prothrombin time, actual/normal, ratio 13.3 SECONDS Normal 11.7-14.9 [facility] Work Phone: [phone] PTP 13.3 SECONDS Normal 11.7-14.9 [facility] Work Phone: [phone] Lab Report: UA03-30-2014 Specific gravity Refractometry Relative Density (U) 1.010 Normal 1.002-1.030 [facility] Work Phone: [phone] Replaced Document: Constantino Andrade CG Observationson 03-30-2014 EKG QRS axis -86 deg Invalid Interpretation Code [facility] Work Phone: [phone] electrocardiogram interpretation Electronic ventricular pacemaker Pacemaker ECG, No further analysis INSUFFICIENT DATA Invalid Interpretation Code [facility] Work Phone: [phone] Interpretation Electronic ventricul ar pacemaker Pacemaker ECG, No further analysis INSUFFICIENT DATA Invalid Interpretation Code [facility] Work Phone: [phone] P [place] 54 deg Invalid Interpretation Code [facility] Work Phone: [phone] P wave axis, electrocardiogram 54 deg Invalid Interpretation Code [facility] Work Phone: [phone] TN Interval 0 ms Invalid Interpretation Code [facility] Work Phone: [phone] TN interval, electrocardiogram 0 ms Invalid Interpretation Code [facility] Work Phone: [phone] Pulse (Heart Rate) 81 /min Invalid Interpretation Code [facility] Work Phone: [phone] QRS axis, electrocardiogram -86 deg Invalid Interpretation Code [facility] Work Phone: [phone] QRS Duration 114 ms Invalid Interpretation Code [facility] Work Phone: [phone] QRS duration, electrocardiogram 114 ms Invalid Interpretation Code [facility] Work Phone: QT Interval new path ms Invalid Interpretation Code [facility] Work Phone: [phone] QT interval, electrocardiogram new path ms Invalid Interpretation Code [facility] Work Phone: [phone] T [place] -1 deg Invalid Interpretation Code [facility] Work Phone: [phone] T wave axis, electrocardiogram -1 deg Invalid Interpretation Code [facility] Work Phone: [phone] Lab Report: LIPIDon 09-27-19 14 Cholesterol in HDL mass conc 67 mg/dL Normal [facility] Work Phone: [phone] Cholesterol in LDL mass conc 174 mg/dL High 0-130 [facility] Work Phone: [phone] Cholesterol mass conc 260 mg/dL High [address] [facility] Work Phone: [phone] Lipoprotein.pre-beta mass conc 19 mg/dL Normal 5-40 [facility] Work Phone: [phone] Triglyceride mass conc 96 mg/dL Normal 0-199 [facility] Work Phone: [phone] Lab Report: LIVERon 09-27-19 14 Albumin mass conc 3.7 g/dL Normal 3.4-5.0 [facility] Work Phone: [phone] Alkaline phosphatase (ALP) 63 U/L Normal 50-136 [facility] Work Phone: [phone] ALP enzyme act/vol (Bld) 63 U/L Normal 50-136 [facility] Work Phone: [phone] ALT enzyme act/vol 17 U/L Normal 12-78 [facility] Work Phone: [phone] AST enzyme act/vol 14 U/L Low 15-37 [facility] Work Phone: [phone] Bilirubin mass conc 0.30 mg/dL Normal 0.00-1.00 [facility] Work Phone: [phone] Bilirubin.direct mass conc 0.09 mg/dL Normal 0.00-0.30 [facility] Work Phone: [phone] Protein mass conc 6.4 g/dL Normal 6.4-8.2 [facility] Work Phone: [phone] Replaced Document: [employer] E CG Theresa 03-23-2013 Pulse (Heart Rate) 394 ms Invalid Interpretation Code [facility] Work Phone: [phone] Vital Signs Date Time Vital Sign Value Performing Clinician Efrain jamison 08-29-2024 08:48-0500 Body mass index (BMI) [Ratio] 25.7 kg/m2 Dr. Tia Rivera MD Work Phone: [facility] 08-29-2024 08:48-0500 Body weight 61.[address] Tia Rivera MD Work Phone: [facility] 08-29-2024 08:48-0500 Diastolic blood pressure 84 mm[Hg] Dr. Tia Rivera MD Work Phone: [facility] 08-29-2024 08:48-0500 Heart rate 78 /min Dr. Tia Rivera MD Work Phone: [facility] 08-29-2024 08:48-0500 Respiratory rate 18 /min Dr. Tia Rivera MD Work Phone: [facility] 08-29-2024 08:48-0500 SaO2% (BldA) [Mass fraction] 99 % Dr. Tia Rivera MD Work Phone: [facility] 08-29-2024 08:48-0500 Systolic blood pressure 146 mm[Hg] Dr. Tia Rivera MD Work Phone: [facility] 06-08-2024 09:45-0500 Body height 152 cm Lizeth Smith APRN.SOFTWARE ENGINEERING MANAGER Work Phone: [facility] 06-08-2024 09:45-0500 Body mass index (BMI) [Ratio] 27.31 kg/m2 Lizeth Smith APRN.SOFTWARE ENGINEERING MANAGER Work Phone: [facility] 06-08-2024 09:45-0500 Body weight 63.1 kg Lizeth Smith APRN.SOFTWARE ENGINEERING MANAGER Work Phone: [facility] 06-08-2024 09:45-0500 Diastolic blood pressure 80 mm[Hg] Lizeth Tannhof PORTABLE TRACK LINE MARKER.SOFTWARE ENGINEERING MANAGER Work Phone: [facility] 06-08-2024 09:45-0500 Heart rate 76 /min Lizeth Yahairahof PORTABLE TRACK LINE MARKER.SOFTWARE ENGINEERING MANAGER Work Phone: [facility] 06-08-2024 09:45-0500 Respiratory rate 16 /min Lizeth Yahairaandreaf PORTABLE TRACK LINE MARKER.SOFTWARE ENGINEERING MANAGER Work Phone: [facility] 06-08-2024 09:45-0500 SaO2% (BldA) [Mass fraction] 100 % Lizeth Syedhof PORTABLE TRACK LINE MARKER.SOFTWARE ENGINEERING MANAGER Work Phone: [facility] 06-08-2024 09:45-0500 Systolic blood pressure 158 mm[Hg] Lizeth Yahairahof PORTABLE TRACK LINE MARKER.SOFTWARE ENGINEERING MANAGER Work Phone: [facility] 10-20-2023 09:17-0400 Body height 154.[address] Tia Rivera Work Phone: [facility] 10-20-2023 09:17-0400 Body weight 63.[address] Tia Rivera Work Phone: [facility] 10-19-2023 09:07-0400 Body mass index (BMI) [Ratio] 26.2 kg/m2 Dr. Tia Rivera Work Phone: [facility] 09-03-2023 11:33-0500 Body mass index (BMI) [Ratio] 26.2 kg/m2 Dr. Tia Rivera Work Phone: [facility] 09-03-2023 11:33-0500 Body weight 63.[address] Tia Rivera Work Phone: [facility] 09-03-2023 11:33-0500 Diastolic blood pressure 93 mm[Hg] Dr. Tia Rivera Work Phone: [facility] 09-03-2023 11:33-0500 Heart rate 81 /min Dr. Tia Rivera Work Phone: [facility] 09-03-2023 11:33-0500 Respiratory rate 18 /min Dr. Tia Rivera Work Phone: [facility] 09-03-2023 11:33-0500 Systolic blood pressure 145 mm[Hg] Dr. Tia Rivera Work Phone: [facility] 03-02-2023 11:21-0400 Diastolic blood pressure 90 mm[Hg] Dr. Seamus Crews Work Phone: [facility] 03-02-2023 11:21-0400 Systolic blood pressure 150 mm[Hg] Dr. Seamus Crews Work Phone: [facility] 03-02-2023 10:45-0400 Body height 154.[address] Seamus Crews Work Phone: [facility] 03-02-2023 10:45-0400 Body mass index (BMI) [Ratio] 25.7 kg/m2 Dr. Seamus Crews Work Phone: [facility] 03-02-2023 10:45-0400 Body weight 61.[address] Seamus Crews Work Phone: [facility] 03-02-2023 10:45-0400 Heart rate 69 /min Dr. Seamus Crews Work Phone: [facility] 03-02-2023 10:45-0400 Respiratory rate 18 /min Dr. Seamus Crews Work Phone: [facility] 03-02-2023 10:45-0400 SaO2% (BldA) [Mass fraction] 99 % Dr. Seamus Crews Work Phone: [facility] 04-14-2017 08:01-0400 BMI (Body Mass Index) 23.96 kg/m2 Bhavna Dawson PA-C [facility] Work Phone: 04-14-2017 08:01-0400 BP Diastolic 100 mm[Hg] Bhavna Dawson PA-C [facility] Work Phone: 04-14-2017 08:01-0400 BP Systolic 140 mm[Hg] Bhavna Dawson PA-C [facility] Work Phone: 04-14-2017 08:010400 Height 157.48 cm Bhavna Dawson PA-C [facility] Work Phone: 04-14-2017 08:01-0400 Pulse (Heart Rate) 116 /min Bhavna Dawson PA-C [facility] Work Phone: 04-14-2017 08:01-0400 Respiratory Rate 20 /min Bhavna Dawson PA-C [facility] Work Phone: 04-14-2017 08:01-0400 Weight 59.42 kg Bhavna Dawson PA-C [facility] Work Phone: 10-08-2016 10:24-0400 BMI (Body Mass Index) 23.77 kg/m2 [facility] Work Phone: 10-08-2016 10:24-0400 BP Diastolic 80 mm[Hg] Odilia Alvarado RN [facility] Work Phone: 10-08-2016 10:24-0400 BP Systolic 140 mm[Hg] [facility] Work Phone: 10-08-2016 10:24-0400 Height 157.48 cm [facility] Work Phone: 10-08-2016 10:24-0400 Pulse (Heart Rate) 88 /min [facility] Work Phone: 10-08-2016 10:24-0400 Respiratory Rate 20 /min [facility] Work Phone: 10-08-2016 10:24-0400 Weight 58.97 kg [facility] Work Phone: 09-18-2015 09:13-0400 BSA (Body Surface Area) 1.56 m2 [facility] Work Phone: 03-30-2014 10:47-0400 Heart rate 81 /min Odilia Alvarado RN [facility] Work Phone: 03-23-2013 12:18-0400 Heart rate 394 ms Odilia VITOR Al[facility] Work Phone: Encounters Encounter Date Encounter Type Care Provider Facility Start: 10-12-2025 ambulatory Tia Rivera Facilit y:[facility] Start: 02-28-2025 ambulatory Tia Rivera Facilit y:[facility] Start: 02-22-2025 End: 02-22-[address] Tia Rivera MD Work Phone: [facility] Start: 02-22-2025 End: 02-22-[address] Seamus Crews MD -[facility] Work Phone: Start: 02-21-2025 Non-patient / Non-visit Dr. Matheus BROWN -[facility] Start: 02-21-[address] Seamus Crews MD -[facility] Work Phone: Start: 02-21-2025 ambulatory Tia Farmer y:[facility] Start: 02-15-2025 End: 02-15-[address] Tia Rivera MD Work Phone: [facility] Start: 02-15-2025 End: 02-15-[address] Seamus Crews MD -[facility] Work Phone: Start: 01-25-2025 End: 01-25-2025 [facility] [place] Start: 01-25-2025 End: 01-25-2025 [facility] [place] Comment on above: Population Health Na vigation Outreach ([facility] ) Start: 01-23-2025 End: 01-23-[address] Tia Rivera MD Work Phone: [facility] Start: 01-23-2025 End: 01-23-[address] Seamus Crews MD [facility] Work Phone: Start: 01-18-2025 End: 01-19-2025 ambulatory Tia Rivera MD Work Phone: [facility] Comment on above: Request for disabili ty placement card Start: 11-21-2024 ambulatory Seamus Crews Facility:[facility] Start: 11-21-2024 Non-patient / Non-visit Dr. Matheus BROWN -[facility] Start: 11-21-2024 End: 11-21-2024 Patient encounter procedure Bhavna Dawson [place] -[facility] Work Phone: Start: 11-21-2024 End: 11-21-2024 ambulatory Bhavna Dawson Facility:[facility] Start: 10-26-2024 End: 10-26-2024 ambulatory Seamus Crews Facility:[facility] Start: 10-26-2024 End: 10-26-[address] Seamus Crews MD -[facility] Work Phone: Start: 10-24-2024 End: 10-24-2024 ambulatory Seamus Crews Facility:[facility] Start: 10-24-2024 End: 10-24-[address] Seamus Crews MD -[facility] Work Phone: Start: 08-29-2024 End: 08-29-[address] Tia Rivera MD Work Phone: [facility] Work Phone: Start: 08-29-2024 End: 08-29-[address] Seamus Crews MD -[facility] Work Phone: Start: 08-29-2024 End: 08-29-2024 ambulatory Bhavna Dawson Facility:[facility] Start: 07-26-2024 End: 08-26-2024 ambulatory Tia Rivera MD Work Phone: [facility] Start: 07-25-2024 End: 07-25-2024 ambulatory Clive Eleonora Facility:[facility] Start: 07-25-2024 End: 07-25-[address] Seamus Crews MD -[facility] Work Phone: Start: 07-18-2024 End: 07-18-2024 ambulatory Clive Eleonora Facility:[facility] Start: 07-18-2024 End: 07-18-[address] Seamus Crews MD -[facility] Work Phone: Start: 06-08-2024 End: 06-08-2024 ambulatory TIA RIVERA Facility:[facility] Start: 06-08-2024 End: 06-08-2024 Patient encounter procedure Lizeth Smith APRN.CNP Work Phone: [facility] Comment on above: Medicare annual well ness visit, subsequent (Primary Dx); Essential hypertension, benign; ASHD (arteriosclerotic heart disease); Presence of combination internal cardiac defibrillator (ICD) and pacemaker; Pure hypercholesterolemia; Tobacco use disorder; Degeneration of intervertebral disc of lumbar region, unspecified whether pain present; Encounter for screening examination for other mental health and behavioral disorders; Screening for depression Start: 05-16-2024 End: 05-16-2024 Refill Tia Rivera MD Work Phone: [facility] Comment on above: Refill Request Start: 04-25-2024 End: 04-25-2024 ambulatory Clive Eleonora Facility:[facility] Start: 03-21-2024 End: 03-21-2024 ambulatory Seamus Eleonora Facility:[facility] Start: 03-21-2024 End: 03-21-2024 ambulatory Seamus Eleonora Facility:[facility] Start: 02-29-2024 End: 02-29-2024 ambulatory Bhavna Dawson Facility:[facility] Start: 10-20-2023 End: 10-20-2023 Admission to same day surgery center Dr. Tia Rivera Work Phone: [facility]-Harvesting Manager/Special Procedures Work Phone: Start: 10-20-2023 End: 10-20-[address] Tia Rivera Work Phone: [facility] Work Phone: Start: 10-06-2023 Non-patient / Non-visit Dr. Nevin Rivera Work Phone: [facility] Start: 10-05-2023 End: 10-05-[address] Tia Rivera Work Phone: [facility] Work Phone: Start: 09-03-2023 End: 09-03-[address] Tia Rivera Work Phone: [facility] Work Phone: Start: 09-03-2023 End: 09-03-[address] Tia Rivera Work Phone: [facility] Work Phone: Start: 08-26-2023 ambulatory Tia leiva MD Work Phone: [facility] [place] Start: 05-11-2023 Telephone encounter Tia jimenez MD Work Phone: [facility] Comment on above: Results Start: 05-04-2023 End: 05-04-2023 Subsequent hospital visit by physician [facility] Work Phone: Radiology Comment on above: Generalized abdomina l pain [R10.84] Start: 03-02-2023 End: 03-02-[address] Seamus Crews Work Phone: [facility] Work Phone: Start: 03-02-2023 End: 03-02-[address] Seamus Crews Work Phone: [facility]-Laboratory Work Phone: Start: 03-02-2023 End: 03-02-[address] Seamus Crews Work Phone: [facility] Work Phone: Start: 11-27-2022 End: 11-27-[address] Seamus Crews Work Phone: [facility] Work Phone: Start: 09-10-2022 ambulatory Tia leiva MD Work Phone: [facility] [place] Start: 03-13-2018 End: 03-13-2018 Emergency department patient visit TITI BANKS Facility:[facility] Start: 01-20-2018 End: 01-20-2018 Patient encounter CHARITY IGLESIASOUD [facility] Start: 12-18-2017 End: 12-19-2017 Patient encounter CHARITY Tijerina LUDY [facility] Start: 12-18-2017 Patient encounter CHARITY Tijerina LUDY [facility] Procedures Date Procedure Procedure Detail Performing Clinician Start: 06-08-2024 Adult depression screening assessment Lizeth Smith APRN.SOFTWARE ENGINEERING MANAGER Work Phone: Start: 05-04-2023 Us abdominal real time w/image limited Tia Rivera MD Work Phone: Start: 03-21-2019 Lipid 1996 panel - Serum or Plasma Us 1 Work Phone: Start: 04-14-2017 End: 04-14-2017 RADIOISOTOPE TECHNOLOGIST Fili Silver SWITCHING OPERATOR Work Phone: Start: 04-14-2017 End: 04-14-2017 Follow Up Appt 6 months Fili Silver SWITCHING OPERATOR Work Phone: Start: 04-14-2017 End: 04-14-2017 Prgrmg eval implantable in person multi lead dfb Bhavna Dawson PA-C Work Phone: Start: 01-15-2017 End: 04-14-2017 Follow Up Appt 3 months Bhavna che PA-C Work Phone: Start: 01-15-2017 End: 04-14-2017 [facility] Clinic hBavna Dawson PA-C Work Phone: Start: 01-15-2017 End: 01-15-2017 Prgrmg eval implantable in person multi lead dfb Bhavna Dawson PA-C Work Phone: Start: 01-15-2017 End: 01-15-2017 Icd device progr eval, mult Bhavna Dawson PA-C Work Phone: Start: 10-08-2016 End: 04-14-2017 Follow Up Appt 3 months Khalida Ricks Start: 10-08-2016 End: 04-14-2017 Follow Up Appt 6 months Khalida Ricks Start: 10-08-2016 End: 04-14-2017 [facility] Seamus Crews MD Start: 10-08-2016 End: 04-14-2017 Pac[facility] Clinic Seamus Crews MD Start: 10-08-2016 End: 10-08-2016 Prgrmg eval implantable in person multi lead dfb Seamus Crews MD Start: 10-08-2016 End: 10-08-2016 Icd device progr eval, mult Seamus Crews MD Start: 05-19-2016 End: 09-30-2016 Follow Up Appt 3 months Bhavna che PA-C Work Phone: Start: 05-19-2016 End: 09-30-2016 Pac[facility] Clinic Bhavna Dawson PA-C Work Phone: Start: 05-19-2016 End: 05-19-2016 Prgrmg eval implantable in person multi lead dfb Bahvna Dawson PA-C Work Phone: Start: 05-19-2016 End: 09-30-2016 Follow Up Appt 3 months Bhavna che PA-C Work Phone: Start: 05-19-2016 End: 05-19-2016 Icd device progr eval, mult Bhavna Dawson PA-C Work Phone: Start: 05-19-2016 End: 09-30-2016 [facility] Clinic Bhavna Dawson PA-C Work Phone: Start: 02-05-2016 End: 09-30-2016 Follow Up Appt 3 months Khalida Ricks Start: 02-05-2016 End: 09-30-2016 [facility] Clinic Seamus Crews MD Start: 02-05-2016 End: 02-06-2016 Prgrmg eval implantable in person multi lead dfb Seamus Crews MD Start: 02-05-2016 End: 09-30-2016 Follow Up Appt 3 months Khalida Ricks Start: 02-05-2016 End: 02-06-2016 Icd device progr bessyal, marit Seamus Crews MD Start: 02-05-2016 End: 09-30-2016 [facility] Seamus Crews MD Start: 11-05-2015 End: 09-30-2016 Follow Up Appt 3 months Bhavna che PA-C Work Phone: Start: 11-05-2015 End: 09-30-2016 Pac[facility] Clinic Bhavna Dawson PA-C Work Phone: Start: 11-05-2015 End: 11-05-2015 Prgrmg eval implantable in person multi lead dfb Bhavna Dawson PA-C Work Phone: Start: 11-05-2015 End: 09-30-2016 Follow Up Appt 3 months Bhavna che PA-C Work Phone: Start: 11-05-2015 End: 11-05-2015 Icd device progr eval, mult Bhavna Dawson PA-C Work Phone: Start: 11-05-2015 End: 09-30-2016 Pacer Clinic Bhavna Dawson PA-C Work Phone: Start: 09-18-2015 End: 09-18-2015 Follow Up Appt 6 months Khalida Ricks Start: 09-18-2015 End: 09-18-2015 GELACIO Crews MD Start: 09-18-2015 End: 09-18-2015 Follow Up Appt 6 months Khalida Ricks Start: 09-18-2015 End: 09-18-2015 GELACIO Crews MD Start: 07-27-2015 End: 09-30-2016 Follow Up Appt 3 months Khalida Ricks Start: 07-27-2015 End: 09-30-2016 Pacer Clinic Seamus Crews MD Start: 07-27-2015 End: 07-29-2015 Prgrmg eval implantable in person multi lead dfb Seamus Crews MD Start: 07-27-2015 End: 09-30-2016 Follow Up Appt 3 months Khalida Ricks Start: 07-27-2015 End: 07-29-2015 Icd device progr eval, marit Seamus Crews MD Start: 07-27-2015 End: 09-30-2016 Pacer Clinic Seamus Crews MD Start: 03-14-2015 End: 03-14-2015 RADIOISOTOPE TECHNOLOGIST Bhavna Dawson PA-C Work Phone: Start: 03-14-2015 End: 03-15-2015 Documentation of current medications Bhavna Dawson PA-C Work Phone: Start: 03-14-2015 End: 03-14-2015 Follow Up Appt 6 months Bhavna che PA-C Work Phone: Start: 03-14-2015 End: 09-30-2016 Follow Up Appt Other Bhavna martinez PA-C Work Phone: Start: 03-14-2015 End: 03-15-2015 Smoking cessation education Bhavna Dawson PA-C Work Phone: Start: 03-14-2015 End: 03-14-2015 RADIOISOTOPE TECHNOLOGIST Bhavna Dawson PA-C Work Phone: Start: 03-14-2015 End: 03-15-2015 Documentation of current medications Bhavna Dawson PA-C Work Phone: Start: 03-14-2015 End: 03-14-2015 Follow Up Appt 6 months Bhavna che PA-C Work Phone: Start: 03-14-2015 End: 09-30-2016 Follow Up Appt Other Bhavna martinez PA-C Work Phone: Start: 03-14-2015 End: 03-15-2015 Smoking cessation education Bhavna Dawson PA-C Work Phone: Start: 02-02-2015 End: 02-05-2015 *BMP Seamus Crews MD Start: 02-02-2015 End: 02-05-2015 Magnesium [Mass/volume] in Serum or Plasma Seamus Crews MD Start: 02-02-2015 End: 02-05-2015 Thyrotropin [Units/volume] in Serum or Plasma Seamus Crews MD Start: 02-02-2015 End: 02-05-2015 Thyroxine (T4) [Mass/volume] in Serum or Plasma Seamus Crews MD Start: 02-02-2015 End: 02-05-2015 *BMP Seamus Crews MD Start: 02-02-2015 End: 02-05-2015 Magnesium Seamus Crews MD Start: 02-02-2015 End: 02-05-2015 Thyroid stimulating hormone (TSH) Seamus Crews MD Start: 02-02-2015 End: 02-05-2015 Thyroxine (T4) Seamus Crews MD Start: 01-24-2015 End: 03-06-2015 Follow Up Appt 3 months Khalida Ricks Start: 01-24-2015 End: 03-06-2015 Pacer Clinic Seamus Crews MD Start: 01-24-2015 End: 01-24-2015 Prgrmg eval implantable in person multi lead dfb Seamus Crews MD Start: 01-24-2015 End: 03-06-2015 Follow Up Appt 3 months Kahlida Ricks Start: 01-24-2015 End: 01-24-2015 Icd device progr eval, mult Seamus Crews MD Start: 01-24-2015 End: 03-06-2015 Pacer Clinic Seamus Crews MD Start: 10-23-2014 End: 03-06-2015 Follow Up Appt 3 months Khalida Ricks Start: 10-23-2014 End: 03-06-2015 Pacer Clinic Seamus Crews MD Start: 10-23-2014 End: 10-24-2014 Prgrmg eval implantable in person multi lead dfb Seamus Crews MD Start: 10-23-2014 End: 03-06-2015 Follow Up Appt 3 months Khalida Ricks Start: 10-23-2014 End: 10-24-2014 Icd device progr eval, mult Seamus Crews MD Start: 10-23-2014 End: 03-06-2015 Pacer Clinic Seamus Crews MD Start: 09-19-2014 End: 03-06-2015 Echocardiography Seamus Crews MD Start: 09-19-2014 End: 09-19-2014 Follow Up Appt 6 months Khalida Ricks Start: 09-19-2014 End: 09-19-2014 MMM Seamus Crews MD Start: 09-19-2014 End: 03-06-2015 Echocardiography Seamus Crews MD Start: 09-19-2014 End: 09-19-2014 Follow Up Appt 6 months Khalida Ricks Start: 09-19-2014 End: 09-19-2014 GELACIO Crews MD Start: 07-25-2014 End: 09-19-2014 Follow Up Appt 3 months Khalida Ricks Start: 07-25-2014 End: 09-19-2014 Pacer Clinic Seamus Crews MD Start: 07-25-2014 End: 07-25-2014 Prgrmg eval implantable in person multi lead dfb Seamus Crews MD Start: 07-25-2014 End: 09-19-2014 Follow Up Appt 3 months Khalida Ricks Start: 07-25-2014 End: 07-25-2014 Icd device progr eval, mult Seamus Crews MD Start: 07-25-2014 End: 09-19-2014 Pacer Clinic Seamus Crews MD Start: 04-14-2014 End: 09-19-2014 Follow Up Appt 3 months Bhavna che PA-C Work Phone: Start: 04-14-2014 End: 04-14-2014 Nurse, Teaching, Wound Check (no charge) Bhavna Dawson PA-C Work Phone: Start: 04-14-2014 End: 09-19-2014 Pacer Clinic Bhavna Dawson PA-C Work Phone: Start: 04-14-2014 End: 09-19-2014 Follow Up Appt 3 months Bhavna che PA-C Work Phone: Start: 04-14-2014 End: 04-14-2014 Nurse, Teaching, Wound Check (no charge) Bhavna Dawson PA-C Work Phone: Start: 04-14-2014 End: 09-19-2014 Pacer Clinic Bhavna Dawson PA-C Work Phone: Start: 03-30-2014 End: 03-30-2014 *BMP Seamus Crews MD Start: 03-30-2014 End: 03-30-2014 *UA - Urinalysis w/o Micro Seamus Crews MD Start: 03-30-2014 End: 03-30-2014 CBC W Auto Differential panel - Blood Seamus Crews MD Start: 03-30-2014 End: 03-06-2015 Chest x-ray Seamus Crews MD Start: 03-30-2014 End: 03-06-2015 Ecg routine ecg w/least 12 lds w/i&r Seamus Crews MD Start: 03-30-2014 End: 03-30-2014 Follow Up Appt 6 months Khalida Ricks Start: 03-30-2014 End: 03-30-2014 INR in Platelet poor plasma by Coagulation assay Seamus Crews MD Start: 03-30-2014 End: 03-30-2014 MMM Seamus Crews MD Start: 03-30-2014 End: 03-30-2014 Nurse, Teaching, Wound Check (no charge) Seamus Crews MD Start: 03-30-2014 End: 03-06-2015 Pacemaker Generator Change Seamus Crews MD Start: 03-30-2014 End: 03-15-2015 Preoperative cardiovascular examination PRE-OPERATIVE CARDIOVASCULAR EXAMINATION Odilia Alvarado RN Start: 03-30-2014 End: 03-30-2014 *BMP Seamus Crews MD Start: 03-30-2014 End: 03-30-2014 *UA - Urinalysis w/o Micro Seamus Crews MD Start: 03-30-2014 End: 03-30-2014 CBC W Auto Differential panel - Blood Seamus Crews MD Start: 03-30-2014 End: 03-06-2015 Chest x-ray Seamus Crews MD Start: 03-30-2014 End: 03-30-2014 Coagulation factor induced.INR assay in platelet poor plasma Seamus Crews MD Start: 03-30-2014 End: 03-06-2015 Electrocardiogram, complete Seamus Crews MD Start: 03-30-2014 End: 03-30-2014 Follow Up Appt 6 months Khalida Ricks Start: 03-30-2014 End: 03-30-2014 MMKhalida Crews MD Start: 03-30-2014 End: 03-30-2014 Nurse, Teaching, Wound Check (no charge) Seamus Crews MD Start: 03-30-2014 End: 03-06-2015 Pacemaker Generator Change Seamus Crews MD Start: 03-30-2014 End: 03-15-2015 Preoperative cardiovascular examination PRE-OPERATIVE CARDIOVASCULAR EXAMINATION Odilia Alvarado RN Start: 03-03-2014 End: 03-06-2015 Follow Up Appt 1 month Jg Narvaez MD Start: 03-03-2014 End: 03-06-2015 Pacer Clinic Jg Narvaez MD Start: 03-03-2014 End: 03-03-2014 Prgrmg eval implantable in person multi lead dfb Jg Narvaez MD Start: 03-03-2014 End: 03-06-2015 Follow Up Appt 1 month Jg Narvaez MD Start: 03-03-2014 End: 03-03-2014 Icd device progr eval, mult Jg Narvaez MD Start: 03-03-2014 End: 03-06-2015 Pacer Clinic Jg Narvaez MD Start: 01-30-2014 End: 03-06-2015 Follow Up Appt 1 month Bhavna wiggins PA-C Work Phone: Start: 01-30-2014 End: 03-06-2015 Pacer Clinic Bhavna Dawson PA-C Work Phone: Start: 01-30-2014 End: 01-30-2014 Prgrmg eval implantable in person multi lead dfb Bhavna Dawson PA-C Work Phone: Start: 01-30-2014 End: 03-06-2015 Follow Up Appt 1 month Bhavna wiggins PA-C Work Phone: Start: 01-30-2014 End: 01-30-2014 Icd device progr eval, marit Bhavna Dawson PA-C Work Phone: Start: 01-30-2014 End: 03-06-2015 Pacer Clinic Bhavna Dawson PA-C Work Phone: Start: 11-07-2013 End: 03-06-2015 *Hepatic Function Panel Bhavna che PA-C Work Phone: Start: 11-07-2013 End: 03-06-2015 Lipid 1996 panel - Serum or Plasma Bhavna Dawson PA-C Work Phone: Start: 11-07-2013 End: 03-06-2015 *Hepatic Function Panel Bhavna che PA-C Work Phone: Start: 11-07-2013 End: 03-06-2015 Lipid panel [AGGREGATE] Bhavna che PA-C Work Phone: Start: 10-20-2013 End: 03-06-2015 Follow Up Appt 3 months Khalida Ricks Start: 10-20-2013 End: 03-06-2015 Pacer Clinic Seamus Crews MD Start: 10-20-2013 End: 10-20-2013 Prgrmg eval implantable in person multi lead dfb Seamus Crews MD Start: 10-20-2013 End: 03-06-2015 Follow Up Appt 3 months Khalida Ricks Start: 10-20-2013 End: 10-20-2013 Icd device progr melinda, panchito Crews MD Start: 10-20-2013 End: 03-06-2015 Pacer Clinic Seamus Crews MD Start: 09-22-2013 End: 09-26-2013 *Hepatic Function Panel Bhavna che PA-C Work Phone: Start: 09-22-2013 End: 09-22-2013 RADIOISOTOPE TECHNOLOGIST Bhavna Dawson PA-C Work Phone: Start: 09-22-2013 End: 09-22-2013 Follow Up Appt 1 year Bhavna garsia PA-C Work Phone: Start: 09-22-2013 End: 09-26-2013 Lipid 1996 panel - Serum or Plasma Bhavna Dawson PA-C Work Phone: Start: 09-22-2013 End: 09-26-2013 *Hepatic Function Panel Bhavna che PA-C Work Phone: Start: 09-22-2013 End: 09-22-2013 RADIOISOTOPE TECHNOLOGIST Bhavna Dawson PA-C Work Phone: Start: 09-22-2013 End: 09-22-2013 Follow Up Appt 1 year Bhavna garsia PA-C Work Phone: Start: 09-22-2013 End: 09-26-2013 Lipid panel [AGGREGATE] Bhavna che PA-C Work Phone: Start: 07-22-2013 End: 09-13-2013 Follow Up Appt 3 months Khalida Ricks Start: 07-22-2013 End: 09-13-2013 Pacer Clinic Seamus Crews MD Start: 07-22-2013 End: 07-22-2013 Prgrmg eval implantable in person multi lead dfb Seamus Crews MD Start: 07-22-2013 End: 09-13-2013 Follow Up Appt 3 months Khalida Ricks Start: 07-22-2013 End: 07-22-2013 Icd device progr eval, mult Clive S Eleonora, MD Start: 07-22-2013 End: 09-13-2013 Pacer Clinic Seamus Crews MD Start: 04-14-2013 End: 09-13-2013 Follow Up Appt 3 months Khalida Ricks Start: 04-14-2013 End: 09-13-2013 Pacer Clinic Seamus Crews MD Start: 04-14-2013 End: 04-14-2013 Prgrmg eval implantable in person multi lead zoeyb Seamus Crews MD Start: 04-14-2013 End: 09-13-2013 Follow Up Appt 3 months Khalida Ricks Start: 04-14-2013 End: 04-14-2013 Icd device progr panchito lawrence MD Start: 04-14-2013 End: 09-13-2013 Pacer Clinic Seamus Crews MD Start: 03-23-2013 End: 03-23-2013 Follow Up Appt 6 months [facility] Nurse Start: 03-23-2013 End: [facility] Start: 03-23-2013 End: 03-23-2013 Follow Up Appt 6 months [facility] Nurse Start: 03-23-2013 End: 03-23-2013 [facility] Start: 11-02-2012 End: 09-13-2013 Follow Up Appt 3 months Khalida Ricks Start: 11-02-2012 End: 09-13-2013 Pacer Clinic Seamus Crews MD Start: 11-02-2012 End: 11-02-2012 Prgrmg eval implantable in person multi lead marielle Crews MD Start: 11-02-2012 End: 09-13-2013 Follow Up Appt 3 months Khalida Ricks Start: 11-02-2012 End: 11-02-2012 Icd device progr eval, mult Seamus Crews MD Start: 11-02-2012 End: 09-13-2013 Pacer Clinic Seamus Crews MD Start: 09-29-2012 End: 12-08-2012 *Hepatic Function Panel Simeon Brandon MD Start: 09-29-2012 End: 12-08-2012 Lipid 1996 panel - Serum or Plasma Simeon Brandon MD Start: 09-29-2012 End: 12-08-2012 *Hepatic Function Panel Simeon Brandon MD Start: 09-29-2012 End: 12-08-2012 Lipid panel [AGGREGATE] Simeon Brandon MD Start: 06-25-2012 End: 06-25-2012 Follow Up Appt 6 months Simeon Brandon MD Start: 06-25-2012 End: 06-25-2012 Follow Up Appt 6 months Simeon Brandon MD Start: 04-07-2012 End: 06-25-2012 *Hepatic Function Panel Simeon Brandon MD Start: 04-07-2012 End: 06-25-2012 Lipid 1996 panel - Serum or Plasma Simeon Brandon MD Start: 04-07-2012 End: 06-25-2012 *Hepatic Function Panel Simeon Brandon MD Start: 04-07-2012 End: 06-25-2012 Lipid panel [AGGREGATE] Simeon Brandon MD Start: 03-29-2012 End: 04-05-2012 Echocardiography Simeon Brandon MD Start: 03-29-2012 End: 03-29-2012 Follow Up Appt 3 months Simeon Brandon MD Start: 03-29-2012 End: 04-05-2012 Nuclear stress test -adenosine Simeon Brandon MD Start: 03-29-2012 End: 04-05-2012 Echocardiography Simeon Brandon MD Start: 03-29-2012 End: 03-29-2012 Follow Up Appt 3 months Simeon Brandon MD Start: 03-29-2012 End: 04-05-2012 Nuclear stress test -adenosine Simeon Brandon MD Start: 01-07-2012 End: 02-05-2012 *Hepatic Function Panel Simeon Brandon MD Start: 01-07-2012 End: 02-05-2012 Lipid 1996 panel - Serum or Plasma Simeon Brandon MD Start: 01-07-2012 End: 02-05-2012 *Hepatic Function Panel Simeon Brandon MD Start: 01-07-2012 End: 02-05-2012 Lipid panel [AGGREGATE] Simeon Brandon MD Start: 10-23-2011 End: 10-23-2011 Follow Up Appt 6 months Simeon Brandno MD Start: 10-23-2011 End: 10-23-2011 Follow Up Appt 6 months Simeon Brandon MD Start: 10-13-2011 Mammography Tia Rivera MD Work Phone: Start: 12-05-2010 Implantation of automatic cardiac defibrillator IMPLANTATION OF DEFIBRILLATOR, HX OF Odilia Alvarado RN Start: 06-02-2011 Implantation of automatic cardiac defibrillator IMPLANTATION OF DEFIBRILLATOR, HX OF Odilia Alvarado RN Plan of Treatment Date Care Activity Detail Author Start: 2029 RSV Vaccine (1 - 1-d ose 75+ series) RSV Vaccine (1 - 1-dose 75+ series) [facility] Start: 10-04-2026 Diabetes Screening Diabetes Screenin g [facility] Start: 06-08-2025 Annual PCP Team Interior Paneler leslye Disease Visit Annual PCP Team Chronic Disease Visit [facility] Start: 06-08-2025 Anxiety Screening Anxiety Screening [facility] Start: 06-08-2025 Covid-19 Vaccine ( season) Covid-19 Vaccine () [facility] Comment on above: Postponed from 03/06 (Declined at this time) Start: 06-08-2025 Depression Screening Depression Scre ening [facility] Start: 06-08-2025 Medicare Annual Well ness Visit Medicare Annual Wellness Visit [facility] Start: 06-08-2025 Pneumococcal Vaccine : 50+ (1 of 2 - PCV) Pneumococcal Vaccine: 50+ (1 of 2 - PCV) [facility] Comment on above: Postponed from 07/23 (Declined at this time) Start: 06-08-2025 Pneumococcal Vaccine : 65+ (1 of 2 - PCV) Pneumococcal Vaccine: 65+ (1 of 2 - PCV) [facility] Comment on above: Postponed from 07/23 (Declined at this time) Start: 06-08-2025 Screening for osteoporosis Bone Dens ity Screening [facility] Comment on above: Postponed from 07/23 (Declined at this time) Start: 06-08-2025 Shingrix Vaccine (1 of 2) Yanes grix Vaccine (1 of 2) [facility] Comment on above: Postponed from 07/23 (Declined at this time) Start: 06-05-2025 Lipid panel Lipid Screening [facility] Comment on above: Postponed from 03/21 (Declined at this time) Start: 03-06-2025 Influenza vaccination Influenza Vacc ine (#1) [facility] Start: 01-02-2025 Influenza vaccination Influenza Vacc ine (#1) [facility] Comment on above: Postponed from 03/06 (Declined at this time) Start: 10-04-2024 Hepatitis B surface antibody level LDL Cholesterol [facility] Start: 07-06-2024 Advance Directive Discussion Advance Directive Discussion [facility] Start: 05-25-2024 End: 05-25-2024 Patient encounter procedure 05/25/2024 10:00 AM EST Office Visit [facility] [address] [place] [id number] Lizeth Smith APRN.SOFTWARE ENGINEERING MANAGER [address] [place] [id number] yearly wellness [facility] Comment on above: yearly wellness Start: 04-27-2024 Annual PCP Team Interior Paneler leslye Disease Visit Annual PCP Team Chronic Disease Visit [facility] Start: 04-27-2024 BP Controlled (<130/80) BP Controlle d (<130/80) [facility] Start: 04-27-2024 Covid-19 Vaccine () Covid-19 Vaccine () [facility] Comment on above: Postponed from 03/06 (Declined at this time) Start: 04-27-2024 RSV Vaccine (1 - 1-d ose 60+ series) RSV Vaccine (1 - 1-dose 60+ series) [facility] Comment on above: Postponed from 07/23 (Declined at this time) Start: 04-27-2024 Shingrix Vaccine (1 of 2) Yanes grix Vaccine (1 of 2) [facility] Comment on above: Postponed from 07/23 (Declined at this time) Start: 04-27-2024 Urine microalbumin profile DTa P,Tdap,Td Vaccine (1 - Tdap) [facility] Comment on above: Postponed from 07/23 (Declined at this time) Start: 03-21-2024 Lipid 1996 panel - S gen or Plasma Lipid Screening [facility] Start: 03-21-2024 Lipid panel Lipid Screening [facility] Start: 03-21-2024 LIPID SCREEN LIPID SCREEN [facility] Start: 03-06-2024 Covid-19 Vaccine () Covid-19 Vaccine () [facility] Start: 03-06-2024 Influenza vaccination Influenza Vacc ine (#1) [facility] Start: 01-03-2024 Influenza vaccination Influenza Vacc ine (#1) [facility] Comment on above: Postponed from 03/06 (Declined at this time) Start: 10-20-2023 Patient discharge [facility] Start: 07-06-2023 Advance Directive Discussion Advance Directive Discussion [facility] Start: 07-06-[address] [facility] Start: 10-22-2022 ANNUAL PCP TEAM TURNER SPLITTER MACHINE OPERATOR LESLYE DISEASE VISIT ANNUAL PCP TEAM CHRONIC DISEASE VISIT [facility] Start: 10-22-2022 BP CONTROLLED (<130/80) BP CONTROLLE D (<130/80) [facility] Start: 09-26-2022 PNEUMOCOCCAL: 65+ (1 - PCV) PNEUMOCOCCAL: 65+ (1 - PCV) [facility] Comment on above: Postponed from 07/23 (Declined at this time) Start: 09-26-2022 SHINGRIX VACCINE (1 of 2) YANES GRIX VACCINE (1 of 2) [facility] Comment on above: Postponed from 07/23 (Declined at this time) Start: 09-26-2022 Urine microalbumin profile DTAP,TDAP ,TD (1 - Tdap) [facility] Comment on above: Postponed from 07/23 (Declined at this time) Start: 07-06-2022 ADVANCE DIRECTIVE DISCUSSION ADVANCE DIRECTIVE DISCUSSION [facility] Start: 07-06-2022 DEPRESSION ASSESSMENT DEPRESSION ASS ESSMENT [facility] Start: 03-21-2022 DIABETES SCREEN DIABETES SCREEN [facility] Start: 03-21-2022 Diabetes Screening Diabetes Screenin g [facility] Start: 03-06-2022 Influenza vaccination INFLUENZA (#1) [facility] Start: 08-06-2021 COVID-19 VACCINE (4 - Booster for Pfizer series) COVID-19 VACCINE (4 - Booster for Pfizer series) [facility] Start: 03-21-2020 Hepatitis B surface antibody level LDL CHOLESTEROL [facility] Start: 2019 BONE DENSITY BONE DENSITY [facility] Start: 2019 Bone Density Screening Bone Density Screening [facility] Start: 2019 Screening for osteoporosis Bone Dens ity Screening [facility] Start: 03-24-2019 COLORECTAL CANCER SCREENING COLORECTAL CANCER SCREENING [facility] Start: 03-24-2019 FECAL OCCULT BLOOD FECAL OCCULT BLOO D [facility] Start: 03-24-2019 Screening for malign ant neoplasm of colon [facility] Start: 10-15-2017 End: 10-15-2017 Appointment Appointment [facility] Work Phone: Start: 07-21-2017 End: 07-21-2017 Appointment Appointment [facility] Work Phone: Start: 04-14-2017 End: 04-14-2017 RADIOISOTOPE TECHNOLOGIST RADIOISOTOPE TECHNOLOGIST [facility] Work Phone: Start: 04-14-2017 End: 04-14-2017 Follow Up Appt 3 months Follow Up Appt 3 months [facility] Work Phone: Start: 04-14-2017 End: 04-14-2017 Follow Up Appt 6 months Follow Up Appt 6 months [facility] Work Phone: Start: 04-14-2017 End: 04-14-2017 Pacer Clinic [facility] Work Phone: Start: 04-14-2017 End: 04-14-2017 Appointment Appointment [facility] Work Phone: Start: 01-15-2017 End: 04-14-2017 Follow Up Appt 3 months Follow Up Appt 3 months [facility] Work Phone: Start: 01-15-2017 End: 04-14-2017 Pacer Clinic [facility] Work Phone: Start: 01-15-2017 End: 01-15-2017 Appointment Appointment [facility] Work Phone: Start: 01-15-2017 End: 01-15-2017 Follow Up Appt 3 months Follow Up Appt 3 months [facility] Work Phone: Start: 01-15-2017 End: 01-15-2017 Pacer Clinic [facility] Work Phone: Start: 10-08-2016 End: 04-14-2017 Follow Up Appt 3 months Follow Up Appt 3 months [facility] Work Phone: Start: 10-08-2016 End: 04-14-2017 Follow Up Appt 6 months Follow Up Appt 6 months [facility] Work Phone: Start: 10-08-2016 End: 04-14-2017 MMM MMM [facility] Work Phone: Start: 10-08-2016 End: 04-14-2017 Pacer Clinic [facility] Work Phone: Start: 10-08-2016 End: 10-08-2016 Follow Up Appt 3 months Follow Up Appt 3 months [facility] Work Phone: Start: 10-08-2016 End: 10-08-2016 Follow Up Appt 6 months Follow Up Appt 6 months [facility] Work Phone: Start: 10-08-2016 End: 10-08-2016 MMM MMM [facility] Work Phone: Start: 10-08-2016 End: 10-08-2016 Pacer Clinic [facility] Work Phone: Start: 05-19-2016 End: 09-30-2016 Follow Up Appt 3 months Follow Up Appt 3 months [facility] Work Phone: Start: 05-19-2016 End: 09-30-2016 Pacer Clinic [facility] Work Phone: Start: 05-19-2016 End: 09-30-2016 Follow Up Appt 3 months Follow Up Appt 3 months [facility] Work Phone: Start: 05-19-2016 End: 09-30-2016 Pacer Clinic [facility] Work Phone: Start: 02-05-2016 End: 09-30-2016 Follow Up Appt 3 months Follow Up Appt 3 months [facility] Work Phone: Start: 02-05-2016 End: 09-30-2016 Pacer Clinic [facility] Work Phone: Start: 02-05-2016 End: 09-30-2016 Follow Up Appt 3 months Follow Up Appt 3 months [facility] Work Phone: Start: 02-05-2016 End: 09-30-2016 Pacer Clinic [facility] Work Phone: Start: 11-05-2015 End: 09-30-2016 Follow Up Appt 3 months Follow Up Appt 3 months [facility] Work Phone: Start: 11-05-2015 End: 09-30-2016 Pacer Clinic [facility] Work Phone: Start: 11-05-2015 End: 09-30-2016 Follow Up Appt 3 months Follow Up Appt 3 months [facility] Work Phone: Start: 11-05-2015 End: 09-30-2016 Pacer Clinic [facility] Clinic [facility] Work Phone: Start: 09-18-2015 End: 09-18-2015 Follow Up Appt 6 months Follow Up Appt 6 months [facility] Work Phone: Start: 09-18-2015 End: 09-18-2015 MMM MMM [facility] Work Phone: Start: 09-18-2015 End: 09-18-2015 Follow Up Appt 6 months Follow Up Appt 6 months [facility] Work Phone: Start: 09-18-2015 End: 09-18-2015 MMM MMM [facility] Work Phone: Start: 07-27-2015 End: 09-30-2016 Follow Up Appt 3 months Follow Up Appt 3 months [facility] Work Phone: Start: 07-27-2015 End: 09-30-2016 Pacer Clinic Pacer Clinic [facility] Work Phone: Start: 07-27-2015 End: 09-30-2016 Follow Up Appt 3 months Follow Up Appt 3 months [facility] Work Phone: Start: 07-27-2015 End: 09-30-2016 Pacer Clinic [facility] Work Phone: Start: 03-14-2015 End: 03-14-2015 RADIOISOTOPE TECHNOLOGIST RADIOISOTOPE TECHNOLOGIST [facility] Work Phone: Start: 03-14-2015 End: 03-14-2015 Follow Up Appt 6 months Follow Up Appt 6 months [facility] Work Phone: Start: 03-14-2015 End: 09-30-2016 Follow Up Appt Other Follow Up Appt Other [facility] Work Phone: Start: 03-14-2015 End: 03-14-2015 RADIOISOTOPE TECHNOLOGIST RADIOISOTOPE TECHNOLOGIST [facility] Work Phone: Start: 03-14-2015 End: 03-14-2015 Follow Up Appt 6 months Follow Up Appt 6 months [facility] Work Phone: Start: 03-14-2015 End: 09-30-2016 Follow Up Appt Other Follow Up Appt Other [facility] Work Phone: Start: 02-02-2015 End: 02-05-2015 *BMP *BMP [facility] Work Phone: Start: 02-02-2015 End: 02-05-2015 Magnesium *Magnesium [facility] Work Phone: Start: 02-02-2015 End: 02-05-2015 Thyroid stimulating hormone (TSH) *TSH [facility] Work Phone: Start: 02-02-2015 End: 02-05-2015 Thyroxine (T4) *T4 (Total) [facility] Work Phone: Start: 02-02-2015 End: 02-05-2015 *BMP *BMP [facility] Work Phone: Start: 02-02-2015 End: 02-05-2015 Magnesium *Magnesium [facility] Work Phone: Start: 02-02-2015 End: 02-05-2015 Thyroid stimulating hormone (TSH) *TSH [facility] Work Phone: Start: 02-02-2015 End: 02-05-2015 Thyroxine (T4) *T4 (Total) [facility] Work Phone: Start: 01-24-2015 End: 03-06-2015 Follow Up Appt 3 months Follow Up Appt 3 months [facility] Work Phone: Start: 01-24-2015 End: 03-06-2015 Pacer Clinic Pacer Clinic [facility] Work Phone: Start: 01-24-2015 End: 03-06-2015 Follow Up Appt 3 months Follow Up Appt 3 months [facility] Work Phone: Start: 01-24-2015 End: 03-06-2015 Pacer Clinic [facility]er Clinic [facility] Work Phone: Start: 10-23-2014 End: 03-06-2015 Follow Up Appt 3 months Follow Up Appt 3 months [facility] Work Phone: Start: 10-23-2014 End: 03-06-2015 Pacer Clinic Pacer Clinic [facility] Work Phone: Start: 10-23-2014 End: 03-06-2015 Follow Up Appt 3 months Follow Up Appt 3 months [facility] Work Phone: Start: 10-23-2014 End: 03-06-2015 Pacer Clinic [facility] Work Phone: Start: 09-19-2014 End: 09-19-2014 Echocardiography Echocardiogram (complete) [facility] Work Phone: Start: 09-19-2014 End: 09-19-2014 Follow Up Appt 6 months Follow Up Appt 6 months [facility] Work Phone: Start: 09-19-2014 End: 09-19-2014 MMM MMM [facility] Work Phone: Start: 09-19-2014 End: 09-19-2014 Echocardiography Echocardiogram (complete) [facility] Work Phone: Start: 09-19-2014 End: 09-19-2014 Follow Up Appt 6 months Follow Up Appt 6 months [facility] Work Phone: Start: 09-19-2014 End: 09-19-2014 MMM MMM [facility] Work Phone: Start: 07-25-2014 End: 09-19-2014 Follow Up Appt 3 months Follow Up Appt 3 months [facility] Work Phone: Start: 07-25-2014 End: 09-19-2014 Pacer Clinic Pacer Clinic [facility] Work Phone: Start: 07-25-2014 End: 09-19-2014 Follow Up Appt 3 months Follow Up Appt 3 months [facility] Work Phone: Start: 07-25-2014 End: 09-19-2014 Pacer Clinic Pacer Clinic [facility] Work Phone: Start: 04-14-2014 End: 09-19-2014 Follow Up Appt 3 months Follow Up Appt 3 months [facility] Work Phone: Start: 04-14-2014 End: 09-19-2014 Pacer Clinic Pacer Clinic [facility] Work Phone: Start: 04-14-2014 End: 09-19-2014 Follow Up Appt 3 months Follow Up Appt 3 months [facility] Work Phone: Start: 04-14-2014 End: 09-19-2014 Pacer Clinic Pacer Clinic [facility] Work Phone: Start: 03-30-2014 End: 03-30-2014 *BMP *BMP [facility] Work Phone: Start: 03-30-2014 End: 03-30-2014 *UA - Urinalysis w/o Micro *UA - Urinalysis w/o Micro [facility] Work Phone: Start: 03-30-2014 End: 03-30-2014 CBC W Auto Differential panel - Blood *CBC without Diff [facility] Work Phone: Start: 03-30-2014 End: 03-06-2015 Chest x-ray X-Ray, Chest, PA & Lateral [facility] Work Phone: Start: 03-30-2014 End: 03-06-2015 Ecg routine ecg w/least 12 lds w/i&r EKG (In office) [facility] Work Phone: Start: 03-30-2014 End: 03-30-2014 Follow Up Appt 6 months Follow Up Appt 6 months [facility] Work Phone: Start: 03-30-2014 End: 03-30-2014 INR Coag RelTime (PPP) *PT/INR [facility] Work Phone: Start: 03-30-2014 End: 03-30-2014 MMM MMM [facility] Work Phone: Start: 03-30-2014 End: 03-30-2014 Pacemaker Generator Change Pacemaker Generator Change [facility] Work Phone: Start: 03-30-2014 End: 03-30-2014 *BMP *BMP [facility] Work Phone: Start: 03-30-2014 End: 03-30-2014 *UA - Urinalysis w/o Micro *UA - Urinalysis w/o Micro [facility] Work Phone: Start: 03-30-2014 End: 03-30-2014 CBC W Auto Differential panel - Blood *CBC without Diff [facility] Work Phone: Start: 03-30-2014 End: 03-06-2015 Chest x-ray X-Ray, Chest, PA & Lateral [facility] Work Phone: Start: 03-30-2014 End: 03-30-2014 Coagulation factor induced.INR assay in platelet poor plasma *PT/INR [facility] Work Phone: Start: 03-30-2014 End: 03-06-2015 Electrocardiogram, complete EKG (In office) [facility] Work Phone: Start: 03-30-2014 End: 03-30-2014 Follow Up Appt 6 months Follow Up Appt 6 months [facility] Work Phone: Start: 03-30-2014 End: 03-30-2014 MMM MMM [facility] Work Phone: Start: 03-30-2014 End: 03-30-2014 Pacemaker Generator Change Pacemaker Generator Change [facility] Work Phone: Start: 03-03-2014 End: 03-06-2015 Follow Up Appt 1 month Follow Up Appt 1 month [facility] Work Phone: Start: 03-03-2014 End: 03-06-2015 Pacer Clinic Pacer Clinic [facility] Work Phone: Start: 03-03-2014 End: 03-06-2015 Follow Up Appt 1 month Follow Up Appt 1 month [facility] Work Phone: Start: 03-03-2014 End: 03-06-2015 [facility] Work Phone: Start: 01-30-2014 End: 03-06-2015 Follow Up Appt 1 month Follow Up Appt 1 month [facility] Work Phone: Start: 01-30-2014 End: 03-06-2015 [facility] Clinic [facility] Work Phone: Start: 01-30-2014 End: 03-06-2015 Follow Up Appt 1 month Follow Up Appt 1 month [facility] Work Phone: Start: 01-30-2014 End: 03-06-2015 [facility] Clinic [facility] Work Phone: Start: 11-07-2013 End: 03-06-2015 *Hepatic Function Panel *Hepatic Function Panel [facility] Work Phone: Start: 11-07-2013 End: 03-06-2015 Lipid panel [AGGREGATE] *Lipid Profile CC PCP [facility] Work Phone: Start: 11-07-2013 End: 03-06-2015 *Hepatic Function Panel *Hepatic Function Panel [facility] Work Phone: Start: 11-07-2013 End: 03-06-2015 Lipid panel [AGGREGATE] *Lipid Profile CC PCP [facility] Work Phone: Start: 10-20-2013 End: 03-06-2015 Follow Up Appt 3 months Follow Up Appt 3 months [facility] Work Phone: Start: 10-20-2013 End: 03-06-2015 [facility] Clinic [facility] Work Phone: Start: 10-20-2013 End: 03-06-2015 Follow Up Appt 3 months Follow Up Appt 3 months [facility] Work Phone: Start: 10-20-2013 End: 03-06-2015 [facility] Clinic [facility] Work Phone: Start: 09-22-2013 End: 09-26-2013 *Hepatic Function Panel *Hepatic Function Panel [facility] Work Phone: Start: 09-22-2013 End: 09-22-2013 RADIOISOTOPE TECHNOLOGIST RADIOISOTOPE TECHNOLOGIST [facility] Work Phone: Start: 09-22-2013 End: 09-22-2013 Follow Up Appt 1 year Follow Up Appt 1 year [facility] Work Phone: Start: 09-22-2013 End: 09-26-2013 Lipid panel [AGGREGATE] *Lipid Profile CC PCP [facility] Work Phone: Start: 09-22-2013 End: 09-26-2013 *Hepatic Function Panel *Hepatic Function Panel [facility] Work Phone: Start: 09-22-2013 End: 09-22-2013 RADIOISOTOPE TECHNOLOGIST RADIOISOTOPE TECHNOLOGIST [facility] Work Phone: Start: 09-22-2013 End: 09-22-2013 Follow Up Appt 1 year Follow Up Appt 1 year [facility] Work Phone: Start: 09-22-2013 End: 03-24-2014 Lipid panel [AGGREGATE] *Lipid Profile CC PCP [facility] Work Phone: Start: 07-22-2013 End: 09-13-2013 Follow Up Appt 3 months Follow Up Appt 3 months [facility] Work Phone: Start: 07-22-2013 End: 09-13-2013 [facility] Clinic [facility] Work Phone: Start: 07-22-2013 End: 09-13-2013 Follow Up Appt 3 months Follow Up Appt 3 months [facility] Work Phone: Start: 07-22-2013 End: 09-13-2013 [facility] Clinic [facility] Work Phone: Start: 04-14-2013 End: 09-13-2013 Follow Up Appt 3 months Follow Up Appt 3 months [facility] Work Phone: Start: 04-14-2013 End: 09-13-2013 [facility] Clinic [facility] Work Phone: Start: 04-14-2013 End: 09-13-2013 Follow Up Appt 3 months Follow Up Appt 3 months [facility] Work Phone: Start: 04-14-2013 End: 09-13-2013 Pac[facility] Clinic [facility] Work Phone: Start: 03-23-2013 End: 03-23-2013 Follow Up Appt 6 months Follow Up Appt 6 months [facility] Work Phone: Start: 03-23-2013 End: 03-23-2013 MMM MMM [facility] Work Phone: Start: 03-23-2013 End: 03-23-2013 Follow Up Appt 6 months Follow Up Appt 6 months [facility] Work Phone: Start: 03-23-2013 End: 03-23-2013 MMM MMM [facility] Work Phone: Start: 11-02-2012 End: 09-13-2013 Follow Up Appt 3 months Follow Up Appt 3 months [facility] Work Phone: Start: 11-02-2012 End: 09-13-2013 [facility] Work Phone: Start: 11-02-2012 End: 09-13-2013 Follow Up Appt 3 months Follow Up Appt 3 months [facility] Work Phone: Start: 11-02-2012 End: 09-13-2013 [facility] Work Phone: Start: 10-12-2012 Mammography [facility] Start: 10-12-2012 Screening for malign ant neoplasm of breast Mammogram Screening [facility] Start: 09-29-2012 End: 12-08-2012 *Hepatic Function Panel *Hepatic Function Panel [facility] Work Phone: Start: 09-29-2012 End: 12-08-2012 Lipid panel [AGGREGATE] *Lipid Profile [facility] Work Phone: Start: 09-29-2012 End: 12-08-2012 *Hepatic Function Panel *Hepatic Function Panel [facility] Work Phone: Start: 09-29-2012 End: 12-08-2012 Lipid panel [AGGREGATE] *Lipid Profile [facility] Work Phone: Start: 06-25-2012 End: 06-25-2012 Follow Up Appt 6 months Follow Up Appt 6 months [facility] Work Phone: Start: 06-25-2012 End: 06-25-2012 Follow Up Appt 6 months Follow Up Appt 6 months [facility] Work Phone: Start: 04-07-2012 End: 06-25-2012 *Hepatic Function Panel *Hepatic Function Panel [facility] Work Phone: Start: 04-07-2012 End: 06-25-2012 Lipid panel [AGGREGATE] *Lipid Profile [facility] Work Phone: Start: 04-07-2012 End: 06-25-2012 *Hepatic Function Panel *Hepatic Function Panel [facility] Work Phone: Start: 04-07-2012 End: 06-25-2012 Lipid panel [AGGREGATE] *Lipid Profile [facility] Work Phone: Start: 03-29-2012 End: 03-29-2012 Echocardiography Echocardiogram (complete) [facility] Work Phone: Start: 03-29-2012 End: 03-29-2012 Follow Up Appt 3 months Follow Up Appt 3 months [facility] Work Phone: Start: 03-29-2012 End: 03-29-2012 Nuclear stress test -adenosine Nuclear stress test -adenosine [facility] Work Phone: Start: 03-29-2012 End: 03-29-2012 Echocardiography Echocardiogram (complete) [facility] Work Phone: Start: 03-29-2012 End: 03-29-2012 Follow Up Appt 3 months Follow Up Appt 3 months [facility] Work Phone: Start: 03-29-2012 End: 03-29-2012 Nuclear stress test -adenosine Nuclear stress test -adenosine [facility] Work Phone: Start: 01-07-2012 End: 02-05-2012 *Hepatic Function Panel *Hepatic Function Panel [facility] Work Phone: Start: 01-07-2012 End: 02-05-2012 Lipid panel [AGGREGATE] *Lipid Profile [facility] Work Phone: Start: 01-07-2012 End: 02-05-2012 *Hepatic Function Panel *Hepatic Function Panel [facility] Work Phone: Start: 01-07-2012 End: 02-05-2012 Lipid panel [AGGREGATE] *Lipid Profile [facility] Work Phone: Start: 10-23-2011 End: 10-23-2011 Follow Up Appt 6 months Follow Up Appt 6 months [facility] Work Phone: Start: 10-23-2011 End: 10-23-2011 Follow Up Appt 6 months Follow Up Appt 6 months [facility] Work Phone: Start: 2004 Shingrix Vaccine (1 of 2) Yanes grix Vaccine (1 of 2) [facility] Start: 1999 COLOGUARD (FIT-DNA) COLOGUARD (FIT-D NA) [facility] Start: 1999 Colonoscopy COLONOSCOPY [facility] Start: [address] COLONOGRAPHY [facility] Start: 1999 Screening for malign ant neoplasm of colon [facility] Start: 1999 SIGMOIDOSCOPY SIGMOIDOSCOPY [facility] Start: 1973 Urine microalbumin profile DTa P,Tdap,Td Vaccine (1 - Tdap) [facility] Start: 1972 Anxiety Screening Anxiety Screening [facility] Start: 1972 BP Controlled (<130/80) BP Controlle d (<130/80) [facility] Start: 1972 Depression Screening Depression Scre ening [facility] Start: 1960 Pneumococcal Vaccine : 65+ (1 - PCV) Pneumococcal Vaccine: 65+ (1 - PCV) [facility] Start: 1960 Pneumococcal Vaccine : 65+ (1 of 2 - PCV) Pneumococcal Vaccine: 65+ (1 of 2 - PCV) [facility] End: 08-25-2025 DBT Breast - bilateral screening JESSICA SCREENING [facility] Radiology Routine Encounter for screening mammogram for breast cancer 1 Occurrences starting 07/26/2024 until 08/25/2025 [facility] Work Phone: Comment on above: 1 Occurrences starti ng 07/26/2024 until 08/25/2025 End: 10-10-2023 JESSICA SCREENING JESSICA SCREENING Radiology Routine Encounter for screening mammogram for breast cancer 1 Occurrences starting 09/10/2022 until 10/10/2023 [facility] Work Phone: Comment on above: 1 Occurrences starti ng 09/10/2022 until 10/10/2023 End: 09-24-2024 MG Breast Screening JESSICA SCREENING Radiology Routine Encounter for screening mammogram for breast cancer 1 Occurrences starting 08/26/2023 until 09/24/2024 [facility] Work Phone: Comment on above: 1 Occurrences starti ng 08/26/2023 until 09/24/2024 Patient referral [facility] Work Phone: [facility] Immunizations Immunization Date Immunization Notes Care Provider Duran leijaty 09-27-2020 Covid (Pfizer) Dr. Seamus dorsey Work Phone: [facility] 09-06-2020 Covid (Pfizer) Dr. Seamus Gage ri Work Phone: [facility] Payers Date Payer Category Payer Self-pay [id number] 2019 [facility] [employer] DICARE SUPPLEMENT [id number] 2019 Medicare [id number] 2019 Unknown [employer] DICARE SUPPLEMENT [id number] 2019-Present [phone] [address] [place] [address] Indemnity [id number] 2019 Medicare [id number] 2019 Unknown [id number] 2012 Unknown [id number] Unknown [id number] 2.16.840.1.580011.3.579.2. 462 Unknown [id number] 2.16.840.1.590366.3.579.2. 462 Unknown [id number] 2.16.840.1.374374.3.579.2. 462 Unknown [id number] 2.16.840.1.409664.3.579.2. 462 Unknown [id number] 2.16.840.1.177596.3.579.2. 462 Unknown [id number] 2.16.840.1.838937.3.579.2. 462 Unknown [id number] 2.16.840.1.593598.3.579.2. 462 Unknown [id number] 2.16.840.1.144850.3.579.2. 462 Unknown [id number] 2.16.840.1.330610.3.579.2. 462 Unknown [id number] 2.16.840.1.388394.3.579.2. 462 Unknown [id number] 2.16.840.1.893638.3.579.2. 462 Unknown [id number] 2.16.840.1.055561.3.579.2. 462 Unknown [id number] 2.16.840.1.645497.3.579.2. 462 Unknown [id number] 2.16.840.1.912217.3.579.2. 462 Unknown [id number] 2.16.840.1.850654.3.579.2. 462 Unknown [id number] 2.16.840.1.883272.3.579.2. 462 Unknown [id number] 2.16.840.1.996150.3.579.2. 462 Unknown [id number] 2.16.840.1.506838.3.579.2. 462 Unknown [id number] 2.16.840.1.246966.3.579.2. 462 Unknown [id number] 2.16.840.1.896237.3.579.2. 462 Unknown [id number] 2.16.840.1.374748.3.579.2. 462 Social History Date Type Detail Facility Start: 09-26-2021 End: 10-20-2023 Tobacco smoking status NHIS Smokes tobacco daily [facility] Work Phone: Start: 11-18-1980 End: 11-19-2015 History of tobacco use Cigarette Smoker [facility] Work Phone: Start: 09-26-2021 End: 04-26-2023 Cigarettes smoked current (pack per day) - Reported 0.5 [facility] Start: 09-26-2021 End: 04-27-2023 Tobacco use and exposure Smokeless tobacco non-user [facility] Work Phone: Start: 10-22-2021 End: 04-27-2023 Alcohol intake Current non-drinker of alcohol (finding) [facility] Start: 1955 Sex Assigned At Not on file C [facility] Start: 03-02-2023 End: 10-20-2023 Tobacco smoking status NYIS Unknown if ever smoked [facility] Start: 1955 Sex Assigned At Female W [facility] Start: 04-26-2023 End: 06-06-2024 [facility] Utilities [facility] Has the [employer], or [employer] threatened to shut off services in your home in past 12Mo No [facility] Are you now , , , , never or living with a partner? [facility] How often to you hav e a drink containing alcohol? Never [facility] How many standard drinks containing alcohol do you have on a typical day? Patient does not drink [facility] How hard is it for y ou to pay for the very basics like food, housing, medical care, and heating Not very hard [facility] Do you feel stress - tense, restless, nervous, or anxious, or unable to sleep at night because your mind is troubled all the time - these days [OSQ] Only a little [facility] (I/We) worried whetanya er (my/our) food would run out before (I/we) got money to buy more. Never true [facility] Do you feel stress - tense, restless, nervous, or anxious, or unable to sleep at night because your mind is troubled all the time - these days [OSQ] Not at all [facility] Start: 09-08-2024 Sex Female (finding) [facility] Procedure Code Equipment Code Equipment Original Text Equipment Identifier Dates ([id number]) Cardiac resynchr onization therapy implantable defibrillator ()[id number] [facility] Start: 10-20-2023 Functional Status Date Assessment Result Facility 04-03-2014 Are you deaf, or do you have serious difficulty hearing No 04/03/2014 9:03 AM Maria Dolores Delaney MA No [facility] 04-03-2014 Are you blind, or do you have serious difficulty seeing, even when wearing glasses No 04/03/2014 9:03 AM Maria Dolores Delaney MA No [facility] 04-03-2014 Do you have serious difficulty walking or climbing stairs No 04/03/2014 9:03 AM Maria Dolores Delaney MA No [facility] 04-03-2014 Do you have difficul ty dressing or bathing No 04/03/2014 9:03 AM Maria Dolores Delaney MA No [facility] 04-03-2014 Because of a physica l, mental, or emotional condition, do you have difficulty doing errands alone such as visiting a physician's office or shopping No 04/03/2014 9:03 AM Maria Dolores Delaney MA No [facility] Mental Status Date Assessment Result Facility 04-03-2014 Because of a physica l, mental, or emotional condition, do you have serious difficulty concentrating, remembering, or making decisions No 04/03/2014 9:03 AM Maria Dolores Delaney MA No [facility] Clinical Notes 04-20-2007 to 01-25-2025 Maria Dolores Pena MA - 01/25/2025 11:11 AM EDTTelephone Encounter - Kimmie Eldridge MA - 01/19/2025 10:22 AM EDTTelephone Encounter - Kimmie Eldridge MA - 01/19/2025 10:22 AM EDT Note Date & Type Note Facility 01-25-2025 Note HNO ID: [id number] Author: MARIA DOLORES PENA MA Service: ? 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 1st attempt: Left message with my direct number 2nd attempt: My Chart message sent Topic Due (Y or N) Comments Annual Wellness Exam Yes Due 06/2025 PCP Follow up No Colorectal Cancer Screening No A1C No HTN/Controlling BP Yes HCC No Updated appointment notes No Reason for Outreach Care Gap/HCC or Scheduling Wellness Visits Care Gaps due: Medicare Annual Wellness Visit Controlling Blood Pressure Patient Contacted: Unable or unnecessary to reach patient: Left message [employer] message sent Navigation Signature: Maria Dolores Pena MA January 25, 2025 11:11 AM [facility] 01-25-2025 History of Present illness Narrative POPULATION HEALTH NAVIGATION OUTREACH Action/FYI Contacted patient to schedule HCC care gaps and health maintenance. 1st attempt: Left message with my direct number 2nd attempt: My Chart message sent Topic Due (Y or N) Comments Annual Wellness Exam Yes Due 06/2025 PCP Follow up No Colorectal Cancer Screening No A1C No HTN/Controlling BP Yes HCC No Updated appointment notes No Reason for Outreach Care Gap/HCC or Scheduling Wellness Visits Care Gaps due: Medicare Annual Wellness Visit Controlling Blood Pressure Patient Contacted: Unable or unnecessary to reach patient: Left message [employer] message sent Navigation Signature: Maria Dolores Pena MA January 25, 2025 11:11 AM documented in this encounter [facility] 01-25-2025 Note Patient Outreach (ISMAEL PRATER) CHRISTY HUNT ([id number]) 1955 F Date Time Provider Department 01/25/25 MARIA DOLORES PENA During your visit today, we recorded the following information about you: Maria Dolores Pena MA 01/25/2025 11:12 AM Signed POPULATION HEALTH NAVIGATION OUTREACH Action/FYI Contacted patient to schedule HCC care gaps and health maintenance. 1st attempt: Left message with my direct number 2nd attempt: My Chart message sent Topic Due (Y or N) Comments Annual Wellness Exam Yes Due 06/2025 PCP Follow up No Colorectal Cancer Screening No A1C No HTN/Controlling BP Yes HCC No Updated appointment notes No Reason for Outreach Care Gap/HCC or Scheduling Wellness Visits Care Gaps due: Medicare Annual Wellness Visit Controlling Blood Pressure Patient Contacted: Unable or unnecessary to reach patient: Left message [employer] message sent Navigation Signature: Maria Dolores Pena MA January 25, 2025 11:11 AM Allergies As of Date: 01/25/2025 Noted Allergy Reaction IMITREX (SUMATRIPTAN SUCCINATE) 04/29/2005 [id number] REDUCTASE INHIBIT*09/26/2021 17 - Myalgia Date Reviewed: 06/08/2024 Reviewed by: Lianna Astudillo LPN - Fully Assessed Reason for Visit: Population Health Navigation Outreach [3910] Cmt: [facility]/Workbench/ACO Prescriptions as of 01/25/2025 - omeprazole (PRILOSEC) 20 mg capsule Take 1 capsule by mouth daily before breakfast. 1/2 hr before meal. - spironolactone (ALDACTONE) 25 mg tablet Take 1 tablet by mouth every morning. - lisinopril (ZESTRIL, PRINIVIL) 20 mg tablet Take 1 tablet by mouth twice daily. - ezetimibe (ZETIA) 10 mg tablet Take 10 mg by mouth once daily. - carvedilol (COREG) 25 mg tablet Take 1 tablet by mouth twice daily. Problem List As Of Date 01/25/2025 Noted Resolved Non-ischemic cardiomyopathy (HCC) [I42.8] 04/20/2007 04/27/2023 Tobacco use disorder [F17.200] 04/20/2007 Essential hypertension, benign [I10] 10/02/2011 ASHD (arteriosclerotic heart disease) [I25.10] 10/02/2011 Microscopic hematuria [R31.29] 10/02/2011 Presence of combination internal cardiac defibr*03/23/2018 Arthritis of hip [M16.10] 03/23/2018 Pure hypercholesterolemia [E78.00] 09/26/2021 DDD (degenerative disc disease), lumbar [M51.36*09/26/2021 Encounter Status:Closed by MARIA DOLORES PENA on 01/25/25 [facility] 01-19-2025 Telephone encounter Note At medical records. Pt notified via ONOFFMIX (?). Kimmie lEdridge MA [facility] 01-19-2025 Miscellaneous Notes At medical records. Pt notified via Booklrt. Kimmie Eldridge MA Rx printed Tia Rivera MD See pt message, requesting parking placard. Asked pt if she wanted to machine operator picker or have mailed if approved. Evette Luke MA documented in this encounter [facility] 01-19-2025 Telephone encounter Note Rx printed Tia Rivera MD [facility] 01-18-2025 Telephone encounter Note See pt message, requesting parking placard. Asked pt if she wanted to machine operator picker or have mailed if approved. Evette Luke MA [facility] 10-26-2024 Evaluation note Diagnosis Onset Date Resolution LBBB (left bundle branch block) chronic October 26, 2024 9:58am Non-ischemic cardiomyopathy chronic October 26, 2024 9:58am Nonsustained ventricular tachycardia chronic October 26, 2024 9:58am Presence of biventricular automatic implantable cardioverter defibrillator January 20, 2018 chronic October 26, 2024 9:58am [facility] Work Phone: 1(794) 261-227502-24-2025 Evaluation note* Diagnosis Onset Date Resolution Status Admit Date Atherosclerotic heart diseas e of [place] coronary artery without angina pectoris chronic August 29, 2024 9:59am Essential (primary) hypertension chronic August 29, 025 9:59am Hyperlipidemia chronic August 072024 9:59am Non-ischemic cardiomyopathy chronic August 29, 2024 9:59am Presence of biventricular automatic implantable cardioverter defibrillator January 20, 2018 chronic 2024 9:59am LBBB (left bundle branch block) chronic August 29, 025 10:00am Non-ischemic cardiomyopathy chronic August 29, 2024 10:00am Nonsustained ventricular tachycardia chronic August 29, 025 10:00am Presence of biventricular automatic implantable cardioverter defibrillator January 20, 2018 [facility] 2024 10:00am [facility] Work Phone: 1(190) 556-264801-21-2025 NotePatient Outreach (FAMPWS) CHRISTY HUNT ([id number]) 1955 F Date Time Provider Department 07/26/24 TIA RIVERA FAMPWS During your visit today, we recorded the following information about you: Allergies As of Date: 07/26/2024 Noted Allergy Reaction IMITREX (SUMATRIPTAN SUCCINATE) 04/29/2005 [id number] REDUCTASE INHIBIT*09/26/2021 17 - Myalgia Date Reviewed: 06/08/2024 Reviewed by: Lianna Astudillo LPN - Fully Assessed Visit Diagnosis:Encounter for screening mammogram for breast cancer [Z12.31] Order(s):[facility] SCREENING W KYA [[id number]] Order #: [id number] FUTURE Prescriptions as of 08/26/2024 - omeprazole (PRILOSEC) 20 mg capsule Take 1 capsule by mouth daily before breakfast. 1/2 hr before meal. - spironolactone (ALDACTONE) 25 mg tablet Take 1 tablet by mouth every morning. - lisinopril (ZESTRIL, PRINIVIL) 20 mg tablet Take 1 tablet by mouth twice daily. - ezetimibe (ZETIA) 10 mg tablet Take 10 mg by mouth once daily. - carvedilol (COREG) 25 mg tablet Take 1 tablet by mouth twice daily. Problem List As Of Date 07/26/2024 Noted Resolved Non-ischemic cardiomyopathy (HCC) [I42.8] 04/20/2007 04/27/2023 Tobacco use disorder [F17.200] 04/20/2007 Essential hypertension, benign [I10] 10/02/2011 ASHD (arteriosclerotic heart disease) [I25.10] 10/02/2011 Microscopic hematuria [R31.29] 10/02/2011 Presence of combination internal cardiac defibr*03/23/2018 Arthritis of hip [M16.10] 03/23/2018 Pure hypercholesterolemia [E78.00] 09/26/2021 DDD (degenerative disc disease), lumbar [M51.36*09/26/2021 Encounter Status:Closed by RAFI KENDALL on 08/26/24[facility] 06-08-2024 Instructions* Patient Instructions* Lizeth Smith APRN.SOFTWARE ENGINEERING MANAGER - 06/08/2024 10:00 AM EST Get labs completed with cardiology Monitor blood pressure at home, goal 130/80 or less. Watch salt and processed foods in the diet. Continue to take all medication as prescribed. Due for Dtap booster at the pharmacy Follow up in 1 year or sooner as needed. Screening schedule The following prevention plan is recommended: Depression Screening Never done Anxiety Screening Never done BP Controlled (<130/80) Never done DTaP,Tdap,Td Vaccine(1 - Tdap) Never done Mammogram Screening due on 10/12/2012 Advance Directive Discussion due on 07/06/2023 Lipid Screening due on 03/21/2024 WHAT YOU CAN DO TO PREVENT FALLS Many falls can be prevented. By making some changes, you can lower your chances of falling. Four things YOU can do to prevent falls for you* and your caregiver 1. Begin a regular exercise program Exercise is one of the most important ways to lower your chances of falling. It makes you stronger and helps you feel better. Exercises that improve balance and coordination (like Alex Chi) are the most helpful. Lack of exercise leads to weakness and increases your chances of falling. Ask your doctor or health care provider about the best type of exercise program for you. 2. Have your health care provider review your medicines Have your doctor or pharmacist review all the medicines you take, even [id number] medicines. As you get older, the way medicines work in your body can change. Some medicines, or combinations of medicines, can make you sleepy or dizzy andcan cause you to fall. 3. Have your vision checked Have your eyes checked by an eye doctor at least once a year. You may be wearing the wrong glasses or have a condition like glaucoma or cataracts that limits your vision. Poor vision can increase your chances of falling. 4. Make your home safer About half of all falls happen at home. To make your home safer: Remove things you can trip over (like papers, books, clothes, and shoes) from stairs and places where you walk. Remove small throw rugs or use double-sided tape to keep the rugs from slipping. Keep items you use often in cabinets you can reach easily without using a step stool. Have grab bars put in next to your toilet and in the tub or shower. Use non-slip mats in the bathtub and on shower floors. Improve the lighting in your home. As you get older, you need brighter lights to see well. Hang light-weight curtains or shades to reduce glare. Have handrails and lights put in on all staircases. Wear shoes both inside and outside the house. Avoid going barefoot or wearing slippers. For more information, contact: Centers for Disease Control and Prevention www.cdc.gov/injury * This information may not apply if you have certain medical conditions. documented in [facility] History of Present illness Narrative* Lizeth Smith APRN.CNP - 06/08/2024 9:40 AM EST Images from the original note were not included. Christy Hunt is a 68 year old female here for a Medicare wellness visit. Medicare Health Risk Assessment General Health Good Exercise: Minutes/Day 10 min Exercise: Days/Week 5 days Alcohol: Daily Use Never Alcohol: Drinks/Day Patient does not drink Alcohol: 6 or more drinks Never Feel off balance No Concerns: Teeth/Dentures No Concerns: Sexual function No Troubled by feelings None of the above Frequency: Eating healthy diet Several days ADLs requiring help None of the above Safety precautions in home/vehicle Yes Smoke, vape, chews tobacco Yes, but I'm not ready to quit Difficulty hearing No Difficulty seeing No Current Providers Specialists: I have reviewed specialist-related care of the patient in the medical record. Cardiology: Dr. Crews, every 6 months Medical/Family history review Reviewed and updated problem list, medical/surgical/family/social history, medications, and allergies. Opioid use review Opioid Medications (last 90 days) No data to display Anxiety/Depression screening PHQ-9 Score: 0. JAVI-7 Score: 0. Recommendation: no further intervention at this time Cognitive screening Mini Cog Score: 1 Cognitive screening reviewed and Recommended referral for further evaluation (score 0-2). Denies wanting further work up for memory. Refers that her memory is good. Functional Observation Was the patient's Timed Up & Go test unsteady or >= 12 seconds? No Advance Care Planning Patient did not wish or was not able to name a surrogate decision maker or provide an advance care plan Measurements BP 158/80 Pulse 76 Resp 16 Ht 152 cm (4' 11.84) Wt 63.1 kg (139 lb 1.8 oz) SpO2 100% BMI 27.31 kg/m Vision Screening: Follows with optometry/ophthalmology Assessment/Plan Medicare annual wellness visit, subsequent (Z00.00) - Counseled on healthy diet and regular exercise - Fall avoidance information provided - Personalized prevention plan provided - Smoking cessation encouraged; discussed risks to health and quitting strategies. Patient is not ready to quit This is a 68 year old female who presents today with: Patient presents with: Medicare Wellness Exam HISTORY OF PRESENT ILLNESS: Christy Hunt is a 68 year old female. Patient presents with: Medicare Wellness Exam Here in the office for extensive exam. Smokes less than half ppd. HTN/Cardiomyopathy: Taking Lisinopril 20 mg BID, Norvasc 5 mg daily and Coreg 25 mg BID. No chest pain, dizziness, or SOB. Follows with Dr. Crews, thread cutter tender twice a year. Pacemaker in place. Lipid: taking Zetia 10 mg daily. Trying to watch diet and stay active. Back: had surgery done in Jun 2021 at the [facility]. No limitations. Symptoms stable, will have balance difficulty if sitting too long. She has spinal stenosis and DDD. Colonoscopy: 2005 last completed. Does not want screening at this time. Mammogram: 2011 last completed, denies wanting any further screening. Pap: 2011, Normal, HPV negative. Denies wanting any further screening. Vaccines: Denies wanting any vaccines at this time. PAST MEDICAL HISTORY: PAST MEDICAL HISTORY Diagnosis Date Arthritis of hip 03/23/2018 R>L ASHD (arteriosclerotic heart disease) 10/02/2011 Atherosclerotic heart disease of [place] coronary artery without angina pectoris Congestive heart failure (HCC) DDD (degenerative disc disease), lumbar Dr. Alexander-[facility] Essential hypertension, benign 10/02/2011 Herniated disc, cervical s/p discectomy Microscopic hematuria 10/02/2011 Nonischemic cardiomyopathy (HCC) Presence of biventricular automatic cardioverter/defibrillator (AICD) Presence of combination internal cardiac defibrillator (ICD) and pacemaker 03/23/20182007 PRIM CARDIOMYOPATHY NEC 04/20/2007 Pure hypercholesterolemia Tobacco use disorder 04/20/2007 Unspecified constipation PAST SURGICAL HISTORY Procedure Laterality Date B1 GRF FEM H/N INTERTRCHNTRIC/SUBTRCHNTRIC AREA NECK SURGERY BX BREAST NEEDLE CORE W/O IMAGING GUIDANCE SPX COLONOSCOPY FLX DX W/COLLJ SPEC WHEN PFRMD 07/14/2006 Colonoscopy NEUROPLASTY &/TRANSPOS MEDIAN NRV CARPAL TUNNE PACEMAKER (PM) 05/20/2008 ICD PAST SURGICAL HISTORY OF CRYOTHERAPY PAST SURGICAL HISTORY OF 2011 Back surgery PAST SURGICAL HISTORY OF 2020 Dr. Alexander-back surgery ALLERGIES Imitrex [Sumatriptan Succinate] and Funzdxh-Hsk-Tbh Reductase Inhibitors MEDICATIONS Current Outpatient Medications Medication Sig omeprazole (PRILOSEC) 20 mg capsule Take 1 capsule by mouth daily before breakfast. 1/2 hr before meal. lisinopril (ZESTRIL, PRINIVIL) 20 mg tablet Take 1 tablet by mouth twice daily. ezetimibe (ZETIA) 10 mg tablet Take 10 mg by mouth once daily. carvedilol (COREG) 25 mg tablet Take 1 tablet by mouth twice daily. spironolactone (ALDACTONE) 25 mg tablet Take 1 tablet by mouth every morning. No current facility-administered medications for this visit. FAMILY HISTORY Problem Relation Age of Onset Prostate Cancer Father Hypertension Sister Hypertension Sister Hypertension Sister Heart Brother CAD, stents Cancer Brother lung cancer Prostate Cancer Brother Heart Maternal Grandmother Heart Maternal Grandfather Cancer Paternal Grandfather small cell lung cancer Skin Cancer Daughter No Known Problems Daughter No Known Problems Daughter Social History Tobacco Use Smoking status: Every Day Current packs/day: 0.00 Average packs/day: 0.5 packs/day for 35.0 years (17.5 ttl pk-yrs) Types: Cigarettes Start date: 11/18/1980 Last attempt to quit: 11/19/2015 Years since quittin.5 Smokeless tobacco: Never Substance Use Topics Alcohol use: No Drug use: No Comment: caffiene 6-8 cups per day REVIEW OF SYSTEMS GENERAL: No weight loss, malaise or fevers/chills HEENT: Negative for frequent or significant headaches, No changes in hearing or vision. NECK: Negative for lumps, goiter, pain and significant neck swelling RESPIRATORY: Negative for cough, hemoptysis, wheezing, dyspnea or shortness of breath CARDIOVASCULAR: Negative for chest pain, leg swelling, orthopnea, or palpitations GI: No nausea, vomiting, or diarrhea/constipation. No hematochezia/melena. No heartburn or reflux symptoms. : No history of dysuria, frequency or incontinence MUSCULOSKELETAL: Negative for joint pain or swelling. SKIN: Negative for lesions, rash, and itching ENDOCRINE: Negative for cold or heat intolerance, polyuria, polydipsia and goiter NEURO: No history of headaches, syncope, paralysis, seizures or tremors MOOD: Negative for depression, anxiety, or suicidal ideation. EXAM: BP 158/80 Pulse 76 Resp 16 Ht 152 cm (4' 11.84) Wt 63.1 kg (139 lb 1.8 oz) SpO2 100% BMI 27.31 kg/m PHYSICAL EXAM: General Appearance: Well appearing, alert, in no acute distress, well-hydrated, well nourished. Skin: Skin color, texture, turgor normal, no suspicious rashes or lesions. Head: Normocephalic, no masses, lesions, tenderness or abnormalities. Eyes: Anicteric sclera. Extraocular movements are intact. Lungs: Lungs clear to auscultation. No wheezing, rhonchi, rales. Heart: RRR without murmur, gallop, or rubs. No ectopy. Extremities: No deformities, edema, skin discoloration, clubbing or cyanosis. Good capillary refill. Peripheral Pulses: Normal, Capillary refill <2secs, strong peripheral pulses, Pulses palpable. Neurologic: Gait normal. Sensation grossly intact. ASSESSMENT/PLAN: 1. Medicare annual wellness visit, subsequent - ICD9: V70.0, ICD10: Z00.00 (primary diagnosis) - Counseled on healthy diet and regular exercise - Discussed need and benefit for weight loss. BMI 27.31 kg/(m^2) - Colorectal cancer screening recommended - screening declined - Mammogram ordered - screening declined at this time - Smoking cessation encouraged; discussed risks to health and quitting strategies. Patient is not ready to quit - Follow up for annual exam in one year 2. Essential hypertension, benign - ICD9: 401.1, ICD10: I10 - Uncontrolled - Continue current medications - Recommend home blood pressure monitoring, to bring results to next visit - Encouraged sodium restriction, DASH or Mediterranean diet - Recommend regular aerobic exercise - Denied wanting to make medication changes at this time, refers that she will follow-up with cardiology. 3. ASHD (arteriosclerotic heart disease) - ICD9: 414.00, ICD10: I25.10 - Same plan as #2. 4. Presence of combination internal cardiac defibrillator (ICD) and pacemaker - ICD9: V45.02, ICD10: Z95.810 - Stable 5. Pure hypercholesterolemia - ICD9: 272.0, ICD10: E78.00 - Stable, continue to take current medication. - Keep scheduled appointments with cardiology. 6. Tobacco use disorder - ICD9: 305.1, ICD10: F17.200 - Cessation encouraged. - Physiologic and physical aspects of tobacco addiction as well as strategies for quitting were discussed. - Counseling was given focusing on the harmful effects of this addiction especially given the patient's medical condition(s) which will be worsened because of the chemicals in tobacco. 7. Degeneration of intervertebral disc of lumbar region, unspecified whether pain present - ICD9: 722.52, ICD10: M51.369 - Stable 8. Encounter for screening examination for other mental health and behavioral disorders - ICD9: V79.8, ICD10: Z13.39 - ANXIETY SCREENING 9. Screening for depression - ICD9: V79.0, ICD10: Z13.31 - DEPRESSION SCREENING Follow-up in 1 year or sooner as needed. Discussed treatment plan and patient voices understanding. Patient's questions answered appropriately. Medications and potential side effects were discussed and patient voices understanding. Lizeth Smith APRN.CNP This note was partially generated using eÇift voice recognition system. Note was reviewed for accuracy. There may be minor misspellings or grammar miscues with eÇift voice recognition. documented in this encounterHol[facility] [place]12-04-[facility]24 NoteHNO ID: [id number] Author: LIZETH SMITH APRN.CNP Service: ? Author Type: Nurse Practitioner Type: Progress Notes Filed: 06/08/2024 12:55 Note Text: Christy Hunt is a 68 year old female here for a Medicare wellness visit. Medicare Health Risk Assessment General Health Good Exercise: Minutes/Day 10 min Exercise: Days/Week 5 days Alcohol: Daily Use Never Alcohol: Drinks/Day Patient does not drink Alcohol: 6 or more drinks Never Feel off balance No Concerns: Teeth/Dentures No Concerns: Sexual function No Troubled by feelings None of the above Frequency: Eating healthy diet Several days ADLs requiring help None of the above Safety precautions in home/vehicle Yes Smoke, vape, chews tobacco Yes, but I'm not ready to quit Difficulty hearing No Difficulty seeing No Current Providers Specialists: I have reviewed specialist-related care of the patient in the medical record. Cardiology: Dr. Crews, every 6 months Medical/Family history review Reviewed and updated problem list, medical/surgical/family/social history, medications, and allergies. Opioid use review Opioid Medications (last 90 days) No data to display Anxiety/Depression screening PHQ-9 Score: 0. JAVI-7 Score: 0. Recommendation: no further intervention at this time Cognitive screening Mini Cog Score: 1 Cognitive screening reviewed and Recommended referral for further evaluation (score 0-2). Denies wanting further work up for memory. Refers that her memory is good. Functional Observation Was the patient's Timed Up AND Go test unsteady or >= 12 seconds? No Advance Care Planning Patient did not wish or was not able to name a surrogate decision maker or provide an advance care plan Measurements BP 158/80 Pulse 76 Resp 16 Ht 152 cm (4' 11.84) Wt 63.1 kg (139 lb 1.8 oz) SpO2 100% BMI 27.31 kg/m? Vision Screening: Follows with optometry/ophthalmology Assessment/Plan Medicare annual wellness visit, subsequent (Z00.00) - Counseled on healthy diet and regular exercise - Fall avoidance information provided - Personalized prevention plan provided - Smoking cessation encouraged; discussed risks to health and quitting strategies. Patient is not ready to quit This is a 68 year old female who presents today with: Patient presents with: Medicare Wellness Exam HISTORY OF PRESENT ILLNESS: Christy Hunt is a 68 year old female. Patient presents with: Medicare Wellness Exam Here in the office for extensive exam. Smokes less than half ppd. HTN/Cardiomyopathy: Taking Lisinopril 20 mg BID, Norvasc 5 mg daily and Coreg 25 mg BID. No chest pain, dizziness, or SOB. Follows with Dr. Crews, thread cutter tender twice a year. Pacemaker in place. Lipid: taking Zetia 10 mg daily. Trying to watch diet and stay active. Back: had surgery done in Jun 2021 at the [facility]. No limitations. Symptoms stable, will have balance difficulty if sitting too long. She has spinal stenosis and DDD. Colonoscopy: 2005 last completed. Does not want screening at this time. Mammogram: 2011 last completed, denies wanting any further screening. Pap: 2012, Normal, HPV negative. Denies wanting any further screening. Vaccines: Denies wanting any vaccines at this time. PAST MEDICAL HISTORY: PAST MEDICAL HISTORY Diagnosis Date Arthritis of hip 03/23/2018 R>L ASHD (arteriosclerotic heart disease) 10/02/2011 Atherosclerotic heart disease of [place] coronary artery without angina pectoris Congestive heart failure (HCC) DDD (degenerative disc disease), lumbar Dr. Alexander-[facility] Essential hypertension, benign 10/02/2011 Herniated disc, cervical s/p discectomy Microscopic hematuria 10/02/2011 Nonischemic cardiomyopathy (HCC) Presence of biventricular automatic cardioverter/defibrillator (AICD) Presence of combination internal cardiac defibrillator (ICD) and pacemaker 03/23/20182007 PRIM CARDIOMYOPATHY NEC 04/20/2007 Pure hypercholesterolemia Tobacco use disorder 04/20/2007 Unspecified constipation PAST SURGICAL HISTORY Procedure Laterality Date B1 GRF FEM H/N INTERTRCHNTRIC/SUBTRCHNTRIC AREA NECK SURGERY BX BREAST NEEDLE CORE W/O IMAGING GUIDANCE SPX COLONOSCOPY FLX DX W/COLLJ SPEC WHEN PFRMD 07/14/2006 Colonoscopy NEUROPLASTY AND/TRANSPOS MEDIAN NRV CARPAL TUNNE PACEMAKER (PM) 05/20/2008 ICD PAST SURGICAL HISTORY OF CRYOTHERAPY PAST SURGICAL HISTORY OF 2011 Back surgery PAST SURGICAL HISTORY OF 2020 Dr. Alexander-back surgery ALLERGIES Imitrex [Sumatriptan Succinate] and Jmjmthn-Pqw-Qmi Reductase Inhibitors MEDICATIONS Current Outpatient Medications Medication Sig omeprazole (PRILOSEC) 20 mg capsule Take 1 capsule by mouth daily before breakfast. 1/2 hr before meal. lisinopril (ZESTRIL, PRINIVIL) 20 mg tablet Take 1 tablet by mouth twice daily. ezetimibe (ZETIA) 10 mg tablet Take 10 mg by mouth once daily. carvedilol (COREG) 25 mg tablet Take 1 tablet by mo (more content not included)...[facility]11-11-2024 Telephone encounter Note* Telephone Encounter - Betito Og APRN.CNP - 05/16/2024 11:33 AM EST The following approved medication requests have been transmitted electronically. Requested Prescriptions Pending Prescriptions Disp Refills omeprazole (PRILOSEC) 20 mg capsule 90 capsule 3 Sig: Take 1 capsule by mouth daily before breakfast. 1/2 hr before meal. Betito Og APRN.CNP [facility]-11-[facility] Miscellaneous Notes* Telephone Encounter - Betito Og APRN.CNP - 05/16/2024 11:33 AM EST The following approved medication requests have been transmitted electronically. Requested Prescriptions Pending Prescriptions Disp Refills omeprazole (PRILOSEC) 20 mg capsule 90 capsule 3 Sig: Take 1 capsule by mouth daily before breakfast. 1/2 hr before meal. Betito Og APRN.CNP * Telephone Encounter - Beena Vaughn RN - 05/16/2024 10:39 AM EST The patient has been identified by name and date of : Yes Caregiver verified no other encounters exist for this prescription request: Yes Caregiver confirmed with patient/requestor that no other refills are due, in the near future, with this provider at this time: Yes The last office visit in the department: 04/27/2023 Does the patient have a future office visit with this provider/department: Yes 05/25/2024 Requested Prescriptions Pending Prescriptions Disp Refills omeprazole (PRILOSEC) 20 mg capsule 90 capsule 3 Sig: Take 1 capsule by mouth daily before breakfast. 1/2 hr before meal. Beena Vaughn RN documented in this encounterHol[facility] [place]11-11-2024 Telephone encounter Note * Telephone Encounter - Beena Vaughn RN - 05/16/2024 10:39 AM EST The patient has been identified by name and date of : Yes Caregiver verified no other encounters exist for this prescription request: Yes Caregiver confirmed with patient/requestor that no other refills are due, in the near future, with this provider at this time: Yes The last office visit in the department: 04/27/2023 Does the patient have a future office visit with this provider/department: Yes 05/25/2024 Requested Prescriptions Pending Prescriptions Disp Refills omeprazole (PRILOSEC) 20 mg capsule 90 capsule 3 Sig: Take 1 capsule by mouth daily before breakfast. 1/2 hr before meal. Beena Vaughn RN [facility]16[facility] Procedure [facility]04-02-2024 History and physical note Author Seamus Crews [facility] October 06, 2023 4:25pm Note Date/Time October 06, 2023 12:4 2pm [facility] Medical Records Department [address] [place] [address] History & Physical Exam 10/06/23 1239 MR#: [id number] Acct: [id number] Name: CHRISTY HUNT Rep #:[id number] : 1955 68 From: Seamus Crews MD PCP: Dr. Tia Rivera MD Status:TN E SDC Location: [facility] History and Physical Date of Admission: 10/20/23 Christy Hunt is a 68-year-old female who presents today for a generator change. She has a history of single-vessel ostial LAD, ischemic cardiomyopathy, status post ICD implantation who underwent ICD revision in January of 2018 with a biventricular upgrade. She does not have any c The patient initially presented with an ejection fraction in the 18% range related to a nonischemic presumed viral cardiac. She was evaluated at [facility] and received [employer]-D implant. Her left-ventricular function has completely recovered and her last evaluation I have is from 2019 her ejection fraction was 53% with echovirus with stage II diastolic dysfunction. The patient's most recent device interrogation from 09/03/2023 demonstrated RV and LV 100% paced and atrial pacing is less than 1% she has a little less than ayear left on her battery life she did have 1 short burst of atrial fibrillation flutter with RVR. Her atrial amplitude was increased on today's visit. She is approaching ANUPAM. The patient is tolerating her current medical incident. She had had some near syncopal/syncopal spells felt to be related to her medication for her heart failure past. She is up and about regular activity level she denies any syncopeor near syncope. She denies any PND orthopnea denies any chest discomfort she denies any lower extremity edema. She appears to be well compensated Intake Vital Signs See EMR Allergies See EMR Medications See EMR Ejection fraction %: 50 to 54 PFSH Medical History Atherosclerotic heart disease of [place] coronary artery without angina pectoris Essential (primary) hypertension Hyperlipidemia LBBB (left bundle branch block) Neurocardiogenic syncope Non-ischemic cardiomyopathy Nonsustained ventricular tachycardia Presence of biventricular automatic implantable cardioverter defibrillator (01/20/18) Surgical History History of back surgery History of carpal tunnel surgery History of electrophysiologic study (03/2007) Presence of biventricular implantable cardioverter-defibrillator (ICD) (05/24/08) Family History Brother HypertensionBrother HypertensionBrother CAD (coronary artery disease) Hypertension CVA (cerebral vascular accident)Sister Hypertension HLD (hyperlipidemia)Sister HypertensionSister HypertensionBrother Cancer Lung cancer Social History household members: spouse Smoking Status: Current every day smoker tobacco type: cigarettes alcohol intake: never substance use type: does not use diet: low salt caffeine: Yes (5-7 servings per day) Type: coffee what type of physical activity do you participate in: none seatbelt use: always do you feel safe at home: Yes ROS Const Const: Negative for fatigue or weakness ENT ENT: Negative for dizziness or balance problems Cardio Chest Pain: No Palpitations: No Edema: None Muscle aches with walking: None Resp Respiratory: Negative for SOB with activity, SOB at rest or SOB orthopnea\SOB lying down GI GI: Negative nausea, vomiting or heartburn Musc Musc: Negative for muscle weakness or balance problems Neuro Neuro: Negative for dizziness, lightheadedness, near syncope, syncope or weakness Endo Endo: Negative for fatigue Cardiology Exam Const Appearance: cooperative, comfortable and no acute distress Head Head: normal to inspection Eyes General: appearance normal, both eyes and all related structures Neck Neck: no JVD Carotids: Negative bruit Chest Chest inspection: Pacemaker/ICD Auscultation: Bilateral: Clear to Auscultation Cardio Rate: regular rate Rhythm: regular rhythm Heart sounds: S1 normal and S2 normal; Negative rub, gallop or murmur GI GI: normal to inspection and bowel sounds present Neuro General: patient alert and patient oriented x3 Skin Skin: no rashes or lesions noted Extremities Lower Extremity Edema: None: Bilateral Psych Psychological: normal affect Supplemental Info Supplemental Information Assessment and Plan Assessment and Plan (1) Presence of biventricular automatic implantable cardioverter defibrillator: Status: Chronic Comment: Implanted 05/2008, Gen Change 04/2014, Lead Revision 01/20/18 Plan: Patients devices has reached ANUPAM. Will proceed with generator change. 10/06/23 1625 <Electronically signed by Saemus Crews MD> Cosigner Signature (if applicable): 10/06/23 1244 <Electronically signed by Celena Scott NP SWITCHING OPERATOR-C> CC: SWITCHING OPERATORElisha Scott; Dr. Seamus Crews MD; Dr. Tia Rivera MD~ Signed [facility] Work Phone: [phone]) 941-789611-09-2023 Miscellaneous Notes* Telephone Encounter - Kimmie Eldridge Ma - 05/14/2023 8:30 AM EST Pt notified and voiced understanding. Her pain has improved since taking Prilosec. Kimmie Eldridge Ma * Telephone Encounter - Krystyna Lieberman RN - 05/12/2023 9:22 AM EST Called and left a voicemail for the Patient to call back and ask for a nurse to receive the providers message. Krystyna Lieberman, RN * Telephone Encounter - Tia Rivera MD - 05/11/2023 6:26 PM EST Please notify patient that her gallbladder ultrasound is normal. Is she still having the same pain as before? Tia Rivera MD documented in this encounterHol[facility] [place]10-30-[facility]23 History of Present illness Narrative* Sarah Shaikh RDMS - 05/04/2023 9:15 AM EDT Radiology Service Progress Note PATIENT NAME: Christy Hunt DATE OF SERVICE: May 04, 2023 TIME: 10:51 AM PATIENT IDENTITY VERIFICATION COMPLETED USING TWO (2) IDENTIFIERS: Name and Date of confirmedby patient verbally. FALL SCREENING: Has the patient had 2 falls in the last year or 1 fall with injury or currently using an Ambulatory Assistive Device (Walker, Cane, Wheelchair, Crutches, etc.)? No PATIENT GENDER DATA: Female. status: : No status: NO. PATIENT RELEVANT IMPLANT DATA REVIEWED: Not Applicable RADIOLOGY DEPARTMENT: Ultrasound PERIPHERAL IV DATA: Not applicable SIGNED BY: Sarah Shaikh RDMS RVT May 04, 2023 10:51 AM [facility]* Diagnosis Onset Date Resolution Status LBBB (left bundle branch block) chronic Non-ischemic cardiomyopathy chronic Nonsustained ventricular tachycardia chronic Presence of biventricular au tomatic implantable cardioverter defibrillator January 20, 2018 chronic LBBB (left bundle branch block) chronic Non-ischemic cardiomyopathy chronic Nonsustained ventricular tachycardia chronic Presence of biventricular au tomatic implantable cardioverter defibrillator January 20, 2018 chronic Atherosclerotic heart diseas e of [place] coronary artery without angina pectoris chronic Essential (primary) hypertension chronic Hyperlipidemia chronic Non-ischemic cardiomyopathy chronic Presence of biventricular au tomatic implantable cardioverter defibrillator January 20, 2018 [facility] Work Phone: [phone]) 424-278807-18-2018 Evaluation note* Diagnosis Onset Date Resolution Status LBBB (left bundle branch block) chronic Non-ischemic cardiomyopathy chronic Nonsustained ventricular tachycardia chronic Presence of biventricular au tomatic implantable cardioverter defibrillator January 20, 2018 chronic Atherosclerotic heart diseas e of [place] coronary artery without angina pectoris chronic Essential (primary) hypertension chronic Non-ischemic cardiomyopathy chronic Presence of biventricular au tomatic implantable cardioverter defibrillator January 20, 2018 chronic LBBB (left bundle branch block) chronic Non-ischemic cardiomyopathy chronic Presence of biventricular au tomatic implantable cardioverter defibrillator January 20, 2018 [facility] Work Phone: [phone]) 643-517110-16-2007 History of Past illness Narrative* Problem Noted Date Diagnosed Date Resolved Date Non-ischemic cardiomyopathy 04/20/2007 04/27/2023 documented as of this encounter (statuses as of 05/10/2023) [facility] History of Past illness Narrative* Problem Noted Date Diagnosed Date Resolved Date Non-ischemic cardiomyopathy 04/20/2007 04/27/2023 documented as of this encounter (statuses as of 05/14/2023) [facility] History of Past illness Narrative* Problem Noted Date Diagnosed Date Resolved Date Non-ischemic cardiomyopathy 04/20/2007 04/27/2023 documented as of this encounter (statuses as of 08/31/2023) [facility] note* Diagnosis Encounter for screening mammogram for breast cancer documented in this encounter [facility] note* Diagnosis Generalized abdominal pain Abdominal pain, generalized documented in this encounter [facility] note* Diagnosis Encounter for screening mammogram for breast cancer documented in this encounter [facility] note* Diagnosis Generalized abdominal pain Abdominal pain, generalized Nausea and vomiting, unspecified vomiting type documented in this encounter [facility] note* Diagnosis Medicare annual wellness visit, subsequent- Primary Routine general medical examination at a health care facility Essential hypertension, benign ASHD (arteriosclerotic heart disease) Coronary atherosclerosis of unspecified type of vessel, [place] or graft Presence of combination internal cardiac defibrillator (ICD) and pacemaker Pure hypercholesterolemia Tobacco use disorder Degeneration of intervertebral disc of lumbar region, unspecified whether pain present Encounter for screening examination for other mental health and behavioral disorders Screening for depression documented in this encounter [facility] note* Diagnosis Encounter for screening mammogram for breast cancer documented in this encounter [facility] noteNo assessment information availableSt. [facility] Work Phone: Reason for referral (narrative)* Diagnostic Procedure Only (Routine) - Pending Review Specialty Diagnoses / Procedures Referred By Katheryn t Referred To Contact [facility] Diagnoses Encounter for screening mammogram for breast cancer Procedures JESSICA SCREENING SCREENING MAMMOGRAPHY BI 2-VIEW BREAST INC Tia Siegel MD [address] [place] [address] [facility] [address] [place] [address] Referral ID Status Reason Start Date Expiration Date Visits Requested Visits Authorized [id number] Pending Review Auto-Generat ed Referral 09/10/2022 10/10/2023 1 1 [facility] for referral (narrative)* Diagnostic Procedure Only (Routine) - Closed Specialty Diagnoses / Procedures Referred By Katheryn dodge Referred To Contact [facility] Diagnoses Generalized abdominal pain Procedures US ABD RIGHT UPPER QUADRANT US ABDOMINAL REAL TIME W/IMAGE LIMITED Tia Rivera MD [address] [place] [address] [place] [address] Referral ID Status Reason Start Date Expiration Date V isits Requested Visits Authorized [id number] Closed Auto-Generate d Referral 04/27/2023 05/26/2024 1 1 [facility] for referral (narrative)* Diagnostic Procedure Only (Routine) - Pending Review Specialty Diagnoses / Procedures Referred By Katheryn dodge Referred To Contact [facility] Diagnoses Encounter for screening mammogram for breast cancer Procedures JESSICA SCREENING SCREENING MAMMOGRAPHY BI 2-VIEW BREAST INC CAD Tia Rivera MD [address] [place] [address] [facility] [address] [place] [address] Referral ID Status Reason Start Date Expiration Date Visits Requested Visits Authorized [id number] Pending Review Auto-Generat ed Referral 08/26/2023 09/24/2024 1 1 [facility] for referral (narrative)No reason for referral information availableWCleveland Clinic [facility] Work Phone: Summary Purpose Family History Relationship Condition Age at Onset Recorded Date/T barb brother Hypertension Unknown brother Coronary artery disease Unknown Hypertension Unknown Cerebrovascular accident (CVA) Unknown sister Hypertension Unknown Hyperlipidemia Unknown brother Malignant neoplasm Unknown Advance Directives Advance Directive Response Recorded Date/ Time Living Will No August 25 022 2:18am Power of Medical Records Technician No August 25, 2021 2:18am Advance Directive Response Recorded Date/ Time Advance Directives No October 19 024 9:17am Living Will No October 20, 2023 9:17am Power of Medical Records Technician No October 19 9:17am Advance Directive Response Recorded Date/ Time Living Will No October 20, 2023 8:17am Power of Medical Records Technician No October 19 8:17am Advance Directives No October 19 8:17am Advance Directive Response Recorded Date/ Time Living Will No October 20, 2023 9:17am Do you have a Healthcare Power of Medical Records Technician? No October 20, 2023 9:17am Advance Directives No October 19 9:17am Advance Directive Response Recorded Date/ Time Advance Directives No October 19 9:17am Chief Complaint and Reason for Visit Chief Complaint 3 MO CK 3 MO CK / MMM 11:00 6 MO F/U / ODILIA 10:30 INT LABS Reason for Visit LBBB (left bundle br anch block) Non-ischemic cardiomyopathy Nonsustained ventricular tachycardia Presence of biventricular automatic implantable cardioverter defibrillator LBBB (left bundle branch block) Non-ischemic cardiomyopathy Nonsustained ventricular tachycardia Presence of biventricular automatic implantable cardioverter defibrillator Atherosclerotic heart disease of [place] coronary artery without angina pectoris Essential (primary) hypertension Hyperlipidemia Non-ischemic cardiomyopathy Presence of biventricular automatic implantable cardioverter defibrillator Chief Complaint Pacer Check 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 approaching ANUPAM / MH @ 11:30 OVERDUE FOR OV / ODILIA @ 11 Pacer Check Remote Hearing Tones from Device CHANGE OUT CHANGE OUT/INT LABS Reason for Visit LBBB (left bundle br anch block) Non-ischemic cardiomyopathy Nonsustained ventricular tachycardia Presence of biventricular automatic implantable cardioverter defibrillator Atherosclerotic heart disease of [place] coronary artery without angina pectoris Essential (primary) hypertension Non-ischemic cardiomyopathy Presence of biventricular automatic implantable cardioverter defibrillator LBBB (left bundle branch block) Non-ischemic cardiomyopathy Presence of biventricular automatic implantable cardioverter defibrillator Chief Complaint Admit Date Pacer Check Remote July 18, 2024 2 :22am Pacer Check Remote July 25, 2024 2 :21am Pacer Check Remote August 29, 2024 9:00am 6 M FU/ Sees Odilia @ 10:30 August 29, 2024 9:59am Sees MMM @ 10 August 29, 2024 10:00am Reason for Visit Admit Date Atherosclerotic heart diseas e of [place] coronary artery without angina pectoris August 29, 2024 9:59am Essential (primary) hypertension 2024 9:59am Hyperlipidemia August 29, 2024 9:59am Non-ischemic cardiomyopathy August 9:59am Presence of biventricular au tomatic implantable cardioverter defibrillator August 29, 2024 9:59am LBBB (left bundle branch block) August 29, 2024 10:00am Non-ischemic cardiomyopathy August 10:00am Nonsustained ventricular tachycardia Feb ruary 2024 10:00am Presence of biventricular au tomatic implantable cardioverter defibrillator August 29, 2024 10:00am Chief Complaint Admit Date Pacer Check Remote October 24, 2024 2:2 0am Pacer Check Remote October 26, 2024 9:0 0am Annual in-clinic f/u October 26, 2024 9: 58am OTHER CARDIOMYOPATHIES November 21, 2024 8: 53am Pacer Check Remote January 23, 2025 2:21 am Reason for Visit Admit Date LBBB (left bundle branch block) October 262024 9:58am Non-ischemic cardiomyopathy October 26, 2024 9:58am Nonsustained ventricular tachycardia Apr il 2024 9:58am Presence of biventricular au tomatic implantable cardioverter defibrillator October 26, 2024 9:58am Chief Complaint Admit Date OTHER CARDIOMYOPATHIES November 21, 2024 8: 53am Pacer Check Remote January 23, 2025 2:21 am Pacer Check Remote February 15, 2025 11 :23pm NON-ISCHEMIC CARDIOMYOPATHY, ATHEROSCLER OTIC HEART February 21, 2025 8:52am Pacer Check Remote February 22, 2025 2: 47am Additional Source Comments INFORMATION SOURCE (unrecogn ized section and content) DATE CREATED AUTHOR 01/23/2018 [facility] DATE CREATED AUTHOR AUTHOR'S ORGANIZ ATION 03/23/2018 [facility] DATE CREATED AUTHOR AUTHOR'S ORGANIZ ATION 04/17/2018 [facility] DATE CREATED AUTHOR AUTHOR'S ORGANIZ ATION 01/26/2025 [facility] DATE CREATED AUTHOR AUTHOR'S ORGANIZ ATION 02/22/2025 [facility] Source Comments (unrecognize d section and content) In the event this informatio n is protected by the Federal Confidentiality of Alcohol and Drug Abuse Patient Records regulations: The Federal rules restrict any use of the information to criminally investigate or prosecute any alcohol or drug abuse patient.[facility] the event this information is protected by the Federal Confidentiality of Alcohol and Drug Abuse Patient Records regulations: The Federal rules restrict any use of the information to criminally investigate or prosecute any alcohol or drug abuse patient.[facility] the event this information is protected by the Federal Confidentiality of Alcohol and Drug Abuse Patient Records regulations: The Federal rules restrict any use of the information to criminally investigate or prosecute any alcohol or drug abuse patient.[facility] the event this information is protected by the Federal Confidentiality of Alcohol and Drug Abuse Patient Records regulations: The Federal rules restrict any use of the information to criminally investigate or prosecute any alcohol or drug abuse patient.[facility] the event this information is protected by the Federal Confidentiality of Alcohol and Drug Abuse Patient Records regulations: The Federal rules restrict any use of the information to criminally investigate or prosecute any alcohol or drug abuse patient.[facility] the event this information is protected by the Federal Confidentiality of Alcohol and Drug Abuse Patient Records regulations: The Federal rules restrict any use of the information to criminally investigate or prosecute any alcohol or drug abuse patient.[facility] the event this information is protected by the Federal Confidentiality of Alcohol and Drug Abuse Patient Records regulations: The Federal rules restrict any use of the information to criminally investigate or prosecute any alcohol or drug abuse patient.[facility] the event this information is protected by the Federal Confidentiality of Alcohol and Drug Abuse Patient Records regulations: The Federal rules restrict any use of the information to criminally investigate or prosecute any alcohol or drug abuse patient.[facility] the event this information is protected by the Federal Confidentiality of Alcohol and Drug Abuse Patient Records regulations: The Federal rules restrict any use of the information to criminally investigate or prosecute any alcohol or drug abuse patient.[facility] Care Teams (unrecognized sec tion and content) Business Broker Relationship Specialty Start Date End Date Tia Rivera MD [address], [place] [id number] PCP - General Family Medicine 10/22/21 Team Status: Active Member Role Status Dates Dr. Titi Banks III, MD Family Provider Active Dr. Tia Rivera MD Primary Care Provider Active Team Status: Inactive Member Role Status Dates Zhanna Alvarado Active Dr. Seamus Crews MD Attending Provider, Referring Pro vider Active Team Status: Inactive Member Role Status Dates Zhanna Alvarado Attending Provider Active Dr. Tia Rivera MD Primary Care Provider, Referr ing Provider Active Team Status: Inactive Member Role Status Dates ELSA Bustamante Attending Provider Active Dr. Tia Rivera MD Primary Care Provider, Referr ing Provider Active Team Status: Inactive Member Role Status Dates Dr. Tia Rivera MD Primary Care Provider Active ELSA Bustamante Attending Provider, Referr ing Provider Active Business Broker Relationship Specialty Start Date End Date Tia Rivera MD [address], [place] [id number] PCP - General Family Medicine 10/22/21 Business Broker Relationship Specialty Start Date End Date Tia Rivera MD [address] [place] [address] PCP - General Family Medicine 10/22/21 Business Broker Relationship Specialty Start Date End Date Tia Rivera MD [address], [place] [id number] PCP - General Family Medicine 10/22/21 Team Status: Inactive Member Role Status Dates Dr. Tia Rivera MD Primary Care Provider, Referr ing Provider Active Zhanna Alvarado Attending Provider Active Team Status: Inactive Member Role Status Dates Dr. Tia Rivera MD Primary Care Provider, Referr ing Provider Active Dr. Jamar Resendiz MD Attending Provider Active Team Status: Inactive Member Role Status Dates Dr. Tia Rivera MD Primary Care Provider Active Dr. Seamus Crews MD Attending Provider, Referring Pro vider Active Team Status: Inactive Member Role Status Dates Dr. Tia Rivera MD Primary Care Provider Active Zhanna Alvarado Active Dr. Seamus Crews MD Attending Provider, Referring Pro vider Active Team Status: Active Member Role Status Dates Dr. Tia Rivera MD Primary Care Provider Active Dr. Gold Marti MD Other Provider Active Dr. Seamus Crews MD Attending Provider, Referring Pro vider Active Team Status: Inactive Member Role Status Dates Dr. Tia Rivera MD Primary Care Provider Active Dr. Seamus Crews MD Attending Provider Active Team Status: Inactive Member Role Status Dates Dr. Tia Rivera MD Primary Care Provider Active Dr. Gold Marti MD Attending Provider, Referrin g Provider Active Dr. Seamus Crews MD Other Provider Active Bhavna Dawson PA, PA Other Provider Active Business Broker Relationship Specialty Start Date End Date Tia Rivera MD [address] [place] [address] PCP - General Family Medicine 10/22/21 Business Broker Relationship Specialty Start Date End Date Tia Rivera MD [address] [facility], [place] [id number] PCP - General Family Medicine 10/22/21 Business Broker Relationship Specialty Start Date End Date Tia Rivera MD [address] [facility], [place] [address] PCP - General Family Medicine 10/22/21 Lizeth Smith, PORTABLE TRACK LINE MARKER.SOFTWARE ENGINEERING MANAGER [address], [place] [address] Technical Adjuster Family Medicine 06/12/24 Betito Og APRN.SOFTWARE ENGINEERING MANAGER [address] [facility], [place] [address] Technical Adjuster Family Medicine 06/21/24 Team Status: Active Member Role Status Dates Dr. Tia Rivera MD Primary Care Provider Active Team Status: Inactive Member Role Status Dates Dr. Tia Rivera MD Primary Care Provider Active Start: July 18, 2024 End: July 18, 2024 Dr. Seamus Crews MD Attending Provider Active S tart: July 18, 2024 End: July 18, 2024 Dr. Seamus Crews MD Referring Provider Active S tart: July 18, 2024 End: July 18, 2024 Team Status: Inactive Member Role Status Dates Dr. Tia Rivera MD Primary Care Provider Active Start: July 25, 2024 End: July 25, 2024 Dr. Seamus Crews MD Attending Provider Active S tart: July 25, 2024 End: July 25, 2024 Dr. Seamus Crews MD Referring Provider Active S tart: July 25, 2024 End: July 25, 2024 Team Status: Inactive Member Role Status Dates Dr. Tia Rivera MD Primary Care Provider Active Start: August 29, 2024 End: August 29, 2024 Dr. Seamus Crews MD Attending Provider Active S tart: August 29, 2024 End: August 29, 2024 Team Status: Inactive Member Role Status Dates Dr. Tia Rivera MD Primary Care Provider Active Start: August 29, 2024 End: August 29, 2024 Dr. Tia Rivera MD Referring Provider Active Start: August 29, 2024 End: August 29, 2024 Bhavna HUNTER PA Attending Provider Active Start: August 29, 2024 End: August 29, 2024 Team Status: Inactive Member Role Status Dates Dr. Tia Rivera MD Primary Care Provider Active Start: August 29, 2024 End: August 29, 2024 Dr. Seamus Crews MD Attending Provider Active S tart: August 29, 2024 End: August 29, 2024 Dr. Seamus Crews MD Referring Provider Active S tart: August 29, 2024 End: August 29, 2024 Team Status: Inactive Member Role Status Dates Dr. Tia Rivera MD Primary Care Provider Active Start: August 29, 2024 End: August 29, 2024 Bhavna HUNTER PA Attending Provider Active Start: August 29, 2024 End: August 29, 2024 Bhavna HUNTER, PA Referring Provider Active Start: August 29, 2024 End: August 29, 2024 Business Broker Relationship Specialty Start Date End Date Tia Rivera MD [address], [place] [id number] PCP - General Family Medicine 10/22/21 Betito Og APRN.CNP [address] [place] [address] Technical Adjuster Family Medicine 06/21/24 Team Status: Active Member Role/Relationship Status Dates Dr. Tia Rivera MD Primary Care Provider Active Team Status: Inactive Member Role/Relationship Status Dates Dr. Tia Rivera MD Primary Care Provider Active Start: October 24, 2024 End: October 24, 2024 Dr. Seamus Crews MD Attending Provider Active S tart: October 24, 2024 End: October 24, 2024 Team Status: Inactive Member Role/Relationship Status Dates Dr. Tia Rivera MD Primary Care Provider Active Start: October 26, 2024 End: October 26, 2024 Dr. Seamus Crews MD Attending Provider Active S tart: October 26, 2024 End: October 26, 2024 Team Status: Inactive Member Role/Relationship Status Dates Dr. Tia Rivera MD Primary Care Provider Active Start: October 26, 2024 End: October 26, 2024 Dr. Seamus Crews MD Attending Provider Active S tart: October 26, 2024 End: October 26, 2024 Dr. Seamus Crews MD Referring Provider Active S tart: October 26, 2024 End: October 26, 2024 Team Status: Inactive Member Role/Relationship Status Dates Dr. Tia Rivera MD Primary Care Provider Active Start: November 21, 2024 End: November 21, 2024 Bhavna HUNTER PA Attending Provider Active Start: November 21, 2024 End: November 21, 2024 Bhavna Dawson PA, PA Referring Provider Active Start: November 21, 2024 End: November 21, 2024 Team Status: Active Member Role/Relationship Status Dates Dr. Tia Rivera MD Primary Care Provider Active Start: November 21, 2024 Dr. Seamus Crews MD Attending Provider Active S tart: November 21, 2024 Team Status: Inactive Member Role/Relationship Status Dates Dr. Tia Rivera MD Primary Care Provider Active Start: January 23, 2025 End: January 23, 2025 Dr. Seamus Crews MD Attending Provider Active S tart: January 23, 2025 End: January 23, 2025 Business Broker Relationship Specialty Start Date End Date Tia Rivera MD [address], [place] [address] PCP - General Family Medicine 10/22/21 Betito Og APRN.HANS [address], [place] [address] Technical Adjuster Family Medicine 06/21/24 Team Status: Inactive Member Role/Relationship Status Dates Dr. Tia Rivera MD Primary Care Provider Active Start: November 21, 2024 End: November 21, 2024 Bhavna Dawson PA, PA Attending Provider Active Start: November 21, 2024 End: November 21, 2024 Bhavna Dawson PA, PA Referring Provider Active Start: November 21, 2024 End: November 21, 2024 Team Status: Active Member Role/Relationship Status Dates Dr. Tia Rivera MD Primary Care Provider Active Start: November 21, 2024 Dr. Seamus Crews MD Attending Provider Active S tart: November 21, 2024 Team Status: Inactive Member Role/Relationship Status Dates Dr. Tia Rivera MD Primary Care Provider Active Start: January 23, 2025 End: January 23, 2025 Dr. Seamus Crews MD Attending Provider Active S tart: January 23, 2025 End: January 23, 2025 Dr. Seamus Crews MD Referring Provider Active S tart: January 23, 2025 End: January 23, 2025 Team Status: Inactive Member Role/Relationship Status Dates Dr. Tia Rivera MD Primary Care Provider Active Start: February 15, 2025 End: February 15, 2025 Dr. Seamus Crews MD Attending Provider Active S tart: February 15, 2025 End: February 15, 2025 Team Status: Active Member Role/Relationship Status Dates Dr. Tia Rivera MD Primary Care Provider Active Start: February 21, 2025 Dr. Seamus Crews MD Attending Provider Active S tart: February 21, 2025 Dr. Seamus Crews MD Referring Provider Active S tart: February 21, 2025 Team Status: Active Member Role/Relationship Status Dates Dr. Tia Rivera MD Primary Care Provider Active Start: February 21, 2025 Dr. Seamus Crews MD Attending Provider Active S tart: February 21, 2025 Team Status: Inactive Member Role/Relationship Status Dates Dr. Tia Rivera MD Primary Care Provider Active Start: February 22, 2025 End: February 22, 2025 Dr. Seamus Crews MD Attending Provider Active S tart: February 22, 2025 End: February 22, 2025 Goals (unrecognized section and content) Goals may be documented in a n alternate sectionGoals may be documented in an alternate sectionGoals may be documented in an alternate sectionGoals may be documented in an alternate sectionGoals may be documented in an alternate sectionGoals may be documented in an alternate section Reason for Visit (unrecogniz ed section and content) Reason Comments Radiology US Specialty Diagnoses / Procedures Referred By Contac t Referred To Contact US IMAGING Diagnoses Generalized abdominal pain Procedures US ABD RIGHT UPPER QUADRANT US ABDOMINAL REAL TIME W/IMAGE LIMITED Tia Rivera MD [address] [place] [address] [place] [address] Referral ID Status Reason Start Date Expiration Date V isits Requested Visits Authorized [id number] Closed Auto-Generate d Referral 04/27/2023 05/26/2024 1 1 Reason Comments Results Reason Onset Date Comments Refill Request 05/16/2024 Reason Comments Medicare Wellness Exam Reason Onset Date Comments Population Health Navigation Outreach 01/25/2025 Mary/Evelin/TAYLER FOR RECORDS PERTAINING TO PATIENTS WHO ARE OR HAVE BEEN ENROLLED IN A CHEMICAL DEPENDENCY/SUBSTANCEABUSE PROGRAM, SOME INFORMATION MAY BE OMITTED. This clinical summary was aggregated from multiple sources. Caution should be exercised in using it in the provision of clinical care. This summary normalizes information from multiple sources, and as a consequence, information in this document may materially change the coding, format and clinical context of patient data. In addition, data may be omitted in some cases. CLINICAL DECISIONS SHOULD BE BASED ON THE PRIMARY CLINICAL RECORDS. [facility]. provides no warranty or guarantee of the accuracy or completeness of information in this document.
[2025-02-24 08:51] LABS: AST(SGOT) 22 U/L (<=31); Alanine Aminotransfer ALT/SGPT 22 U/L (<=34); Albumin, Serum 3.9 g/dL (3.4-4.8); Alkaline Phosphatase 60 U/L (35-104); Bilirubin, Direct 0.17 mg/dL (0.00-0.30); Cholesterol 232 mg/dL (<=200); Globulin 2.7 g/dL (2.2-4.2); Low Density Lipoprotein Calc. 144 mg/dL; Triglycerides 102 mg/dL; Very Low Density Lipoprotein 20 mg/dL (5-40); cholesterol:hdl ratio screen 3.41
== END | disposition home or self-care (01) ==
LOC: LAB 07:01
PROVIDERS: PCP Family Medicine; Referring Provider Physician Assistant Medical; Visit Provider Physician Assistant Medical
DX: E78.00 Pure hypercholesterolemia, unspecified (principal)
CPT/HCPCS: 36415; 80061; 80076